=== PATIENT | female | born 1950 | race Caucasian/White ===

== ENCOUNTER → 2016-08-15 | Outpatient (REF) | payer MEDICARE, MEDICAID ==
[~2016-08-15] MED LIST: /AMIO20TA OR; /METO25TAB PO; /WARF25TA PO; /WARF5TA OR; ALDA25TA2 PO; AMIO20TA PO; ASPI81TA83 OR; CALCD50TA PO; CALCTAB22 OR; CALCTAB68 PO; CIPR500T4 OR; CORE3.12 PO; ELIQ5TAB PO; GLUC1000 OR; INSUDET SC; INSUH10VL SC; KETO2AER2 TOP; KETO2CR EXT; KETOPOW TOP; LEVO500T PO; LOPE2TAB PO; LOPERAMIDE PO; LOPR50TA OR; MAGN64TASA PO; METF1000 PO; MULTTAB35 PO; OXYB10TA OR; OXYB5TAB OR; PAXI10TA OR; PAXI30TA11 PO; RISP1TAB OR; RISP1TAB41 PO; SIMV20TA2 OR; SIMV20TA2 PO; SLOWTAB OR; SPIR25TA2 PO; VITMTA PO; [UNRECOGNIZED DRUG - OTHER] TOP
[2016-08-15 18:45] LABS: ALBUMIN 3.2 GM/DL (3.2-5.2); ALBUMIN/GLOBULIN RATIO 0.97 (1.00-1.93); BILIRUBIN,TOTAL 0.3 MG/DL (0.2-1.0); CALCIUM LEVEL 8.1 MG/DL (8.8-10.2); CREATININE FOR GFR 1.36 MG/DL (0.55-1.02); GLOMERULAR FILTRATION RATE 41.2 (>45); TOTAL PROTEIN 6.5 GM/DL (6.4-8.2)
[2016-08-15 18:47] LABS: POTASSIUM SERUM 5.5 MEQ/L (3.5-5.1)
[2016-08-15 18:50] LABS: MEAN CORPUSCULAR HEMOGLOBIN 25.3 pg (27.0-33.0); MEAN CORPUSCULAR HGB CONC 29.2 g/dl (32.0-36.5); MEAN CORPUSCULAR VOLUME 86.4 fl (80.0-96.0); RED CELL DISTRIBUTION WIDTH 14.9 % (11.5-14.5)
== END ==
LOC: M LAB REF 17:02
PROVIDERS: ATTEND Surgery
DX: E11.621 Type 2 diabetes mellitus with foot ulcer (principal); L97.412 Non-pressure chronic ulcer of right heel and midfoot with fat layer exposed; L97.512 Non-pressure chronic ulcer of other part of right foot with fat layer exposed
CPT/HCPCS: 36415; 80053; 83036; 85027; 85652; 86140; 97597; G0463

== ENCOUNTER → 2016-08-25 | Outpatient (CLI) | payer MEDICARE, MEDICAID ==
--- NOTE | 2016-08-29 05:25 | REP ---
Clinical: Right foot ulcer. Findings: Subcutaneous edema and diffuse subcutaneous infiltration is appreciated. Advanced scattered partially calcified atherosclerotic changes to the vasculature noted. No discrete drainable fluid collection/abscess is appreciated. No subcutaneous emphysema identified. The osseous structures demonstrate advanced degenerative changes without acute fracture or focal periosteal reaction. Impression: Diffuse swelling and inflammatory changes. No drainable collection or subcutaneous emphysema identified. Osseous structures demonstrate advanced arthritic changes without fracture or osteomyelitis. Atherosclerotic changes to the vasculature. Signed by Benito Riggins MD 08/29/2016 05:15 A
== END ==
LOC: M RAD 10:15
PROVIDERS: ATTEND Surgery
DX: E11.621 Type 2 diabetes mellitus with foot ulcer (principal); M19.071 Primary osteoarthritis, right ankle and foot

== ENCOUNTER → 2016-09-05 | Outpatient (CLI) | payer MEDICARE, MEDICAID ==
[2016-09-05 10:40] LABS: ALBUMIN/GLOBULIN RATIO 0.91 (1.00-1.93); BILIRUBIN,TOTAL 0.3 MG/DL (0.2-1.0); CALCIUM LEVEL 8.3 MG/DL (8.8-10.2); CREATININE FOR GFR 1.22 MG/DL (0.55-1.02); GLOMERULAR FILTRATION RATE 46.7 (>45); TOTAL PROTEIN 6.3 GM/DL (6.4-8.2)
[2016-09-05 10:43] LABS: POTASSIUM SERUM 5.3 MEQ/L (3.5-5.1)
--- NOTE | 2016-09-05 10:56 | REP ---
PA and lateral chest: Comparisons are the portable chest of 06/13/2015, portable chest of 06/12/2015. And PA and lateral chest of 02/08/2015. Lung del rio are clear. Cardiac size is borderline. This is unchanged. The teri, mediastinum, and bony thorax are unremarkable. There is a dual-chamber pacemaker, unchanged from all prior studies. There are surgical clips in the abdominal right upper quadrant. Impression: Chronic borderline cardiac size. Dual-chamber pacemaker. No acute cardiopulmonary findings. Signed by Ion Pavon MD 09/05/2016 10:47 A
== END ==
LOC: M LAB 09:25
PROVIDERS: ATTEND Physician Assistant
DX: I48.0 Paroxysmal atrial fibrillation (principal); I50.32 Chronic diastolic (congestive) heart failure; Z95.0 Presence of cardiac pacemaker

== ENCOUNTER → 2016-10-02 | Outpatient (REF) | payer MEDICARE | LOC: M SFHCPLAZ 09:35 | PROVIDERS: ATTEND Family Medicine | DX: Z53.8 Procedure and treatment not carried out for other reasons (principal); I48.0 Paroxysmal atrial fibrillation; I50.30 Unspecified diastolic (congestive) heart failure; E11.9 Type 2 diabetes mellitus without complications; E78.00 Pure hypercholesterolemia, unspecified ==

== ENCOUNTER → 2016-10-18 | Day surgery (SDC) | payer MEDICARE, MEDICAID ==
[~2016-10-18] VITALS: Ht 162.6 cm; Wt 70.8 kg
[~2016-10-18] MED LIST changes: +ACETAMINOPHEN 325 MG TAB PO PRN; +ACETYLCHOLINE OPHTH SOLN 1% 2ML (MIOCHOL-E) As Ordered ONE; +AMIO200T37 PO; +ASPI81TA85 PO; +AcetaZOLAMIDE 500 MG ER CAP PO ONE; +BSS with VANC/TOB/EPI for EYE CASES IR ONE; +CYCLOPENTOLATE 2% OPHTH SOLN 2ML BTL As Ordered ONE; +CYCLOPENTOLATE 2% OPHTH SOLN 2ML BTL OD ONE; +D5W/0.2% SODIUM CHLORIDE 250 ML IV ONE; +HEALON DUET (HEALON 10MG/ML 0.55ML & HEALON ENDOCOAT 30MG/ML 0.85ML) As Ordered ONE; +KETOROLAC 0.5% OPHTH SOLN OD ONE; +LIDOCAINE 1% MDV 20ML VIAL As Ordered ONE; +LIDOCAINE 1% SDV 5 ML VIAL As Ordered ONE; +LIDOCAINE 4% INJ 5 ML AMP OU ONE; +LISI2.5T3 PO; +MIDAZOLAM INJ 2 MG/2 ML VIAL (J2250) As Ordered ONE; +MOXIFLOXACIN IN BSS 0.25MG/0.25ML INTRACAMERAL INJ (OR EYE ONLY)(J2280) As Ordered ONE; +OFLOXACIN 0.3 % (OCUFLOX) OPTH SOL 5ML As Ordered ONE; +OFLOXACIN 0.3 % (OCUFLOX) OPTH SOL 5ML OD ONE; +PHENYLEPHRINE 2.5% OPHTH SOL 2ML As Ordered ONE; +PHENYLEPHRINE 2.5% OPHTH SOL 2ML OD ONE; +PHENYLEPHRINE HCL 10 % OPHTH. SOL 5ML As Ordered ONE; +PHENYLEPHRINE HCL 10 % OPHTH. SOL 5ML OD SCH; +POVIDONE-IODINE 5% OPHTH PREP SOL 30ML As Ordered ONE; +PROPARACAINE 0.5% OPHTH SOL 15ML OD PRN; +TRIAMCINOLONE PRES FR 40 MG/ML 1ML(TRIESENCE)(OR EYE ONLY)(J3300 PER 1MG) As Ordered ONE; +TRIMETHOBENZAMIDE 300 MG CAP PO PRN; +TROPICAMIDE 1% OPHTH SOLN 2ML As Ordered ONE; +TROPICAMIDE 1% OPHTH SOLN 2ML OD ONE; +fentaNYL 100 MCG/2 ML INJECTION (J3010) As Ordered ONE
[2016-10-18 10:05] VITALS: BP 170/79
--- NOTE | 2016-10-18 23:26 | RO ---
DATE OF PROCEDURE: 10/18/2016 PREOPERATIVE DIAGNOSES: Cataract right eye. Miosis right eye. POSTOPERATIVE DIAGNOSES: Cataract right eye. Miosis right eye. PROCEDURE: Phacoemulsification with intraocular lens implantation of Hoya, +29 diopter, and placement of the Malyugin ring 7 mm for dilating the pupil. SURGEON: Nabil Burgess MD PAINTER AIRCRAFT: None. ANESTHESIA: COMPLICATIONS: None. DESCRIPTION OF PROCEDURE: Patient was brought to the operating room, laid in supine position. The right eye was prepped and draped in a sterile fashion for ophthalmic surgery, and a lid speculum was placed. Sideport incision was made, and EndoCoat was injected into the anterior chamber. A temporal clear corneal incision was then made, and capsulorrhexis was done. This was followed by hydrodissection. Phacoemulsification was carried out in a [id number] method within the capsular bag, followed by aspiration of the cortical material. Prior to capsulorrhexis, Malyugin ring was placed to dilate the pupil. Once the intraocular lens was placed, after aspiration of the cortical material, excess viscoelastic was aspirated. Prior to that, the Malyugin ring was removed from the eye with the help of the introducer. Wound was hydrated. Intracameral moxifloxacin was given, and sub-Tenon Kenalog was given at the end of the case. Lid speculum removed. Patient returned to recovery room in stable condition.
== END | disposition home or self-care (01) ==
LOC: M SDC 07:14
PROVIDERS: ATTEND Ophthalmology
DX: H25.13 Age-related nuclear cataract, bilateral (principal); H57.03 Miosis; I48.0 Paroxysmal atrial fibrillation; I50.9 Heart failure, unspecified; I11.0 Hypertensive heart disease with heart failure; E78.5 Hyperlipidemia, unspecified; I08.0 Rheumatic disorders of both mitral and aortic valves; Z95.0 Presence of cardiac pacemaker; G80.9 Cerebral palsy, unspecified; M85.88 Other specified disorders of bone density and structure, other site; F42.9 Obsessive-compulsive disorder, unspecified; E10.40 Type 1 diabetes mellitus with diabetic neuropathy, unspecified; F70 Mild intellectual disabilities; Z79.899 Other long term (current) drug therapy; Z79.82 Long term (current) use of aspirin; Z79.01 Long term (current) use of anticoagulants; Z79.84 Long term (current) use of oral hypoglycemic drugs; Z88.2 Allergy status to sulfonamides
CPT/HCPCS: 66982; J2250; J2280; J3010; J3300; V2632

== ENCOUNTER → 2016-10-25 | Day surgery (SDC) | payer MEDICARE, MEDICAID ==
[~2016-10-25] VITALS: Ht 162.6 cm; Wt 71.0 kg
[~2016-10-25] MED LIST changes: +ACETAMINOPHEN TAB 650MG DOSE (2X325MG) PO PRN; -ACETYLCHOLINE OPHTH SOLN 1% 2ML (MIOCHOL-E) As Ordered ONE; -CYCLOPENTOLATE 2% OPHTH SOLN 2ML BTL As Ordered ONE; -CYCLOPENTOLATE 2% OPHTH SOLN 2ML BTL OD ONE; +CYCLOPENTOLATE 2% OPHTH SOLN 2ML BTL XX ONE; -D5W/0.2% SODIUM CHLORIDE 250 ML IV ONE; +HumaLOG INSULIN (NovoLOG) PER UNIT As Ordered ONE; +HumaLOG INSULIN (NovoLOG) PER UNIT SC ONE; -KETOROLAC 0.5% OPHTH SOLN OD ONE; +KETOROLAC 0.5% OPHTH SOLN OS ONE; -LIDOCAINE 1% MDV 20ML VIAL As Ordered ONE; +LR 1,000 ML IV SCH; +LR 500 ML IV ONE; -OFLOXACIN 0.3 % (OCUFLOX) OPTH SOL 5ML As Ordered ONE; -OFLOXACIN 0.3 % (OCUFLOX) OPTH SOL 5ML OD ONE; +OFLOXACIN 0.3 % (OCUFLOX) OPTH SOL 5ML XX ONE; -PHENYLEPHRINE 2.5% OPHTH SOL 2ML As Ordered ONE; -PHENYLEPHRINE 2.5% OPHTH SOL 2ML OD ONE; +PHENYLEPHRINE 2.5% OPHTH SOL 2ML XX ONE; -PHENYLEPHRINE HCL 10 % OPHTH. SOL 5ML OD SCH; +PHENYLEPHRINE HCL 10 % OPHTH. SOL 5ML OS ONE; -PROPARACAINE 0.5% OPHTH SOL 15ML OD PRN; +PROPARACAINE 0.5% OPHTH SOL 15ML OS PRN; -TROPICAMIDE 1% OPHTH SOLN 2ML As Ordered ONE; -TROPICAMIDE 1% OPHTH SOLN 2ML OD ONE; +TROPICAMIDE 1% OPHTH SOLN 2ML XX ONE
[2016-10-25 14:10] VITALS: BP 143/84
--- NOTE | 2016-10-25 15:57 | RO ---
DATE OF PROCEDURE: 10/25/2016 PREPROCEDURE DIAGNOSIS: Cataract left eye and myosis left eye. POSTPROCEDURE DIAGNOSIS: Cataract left eye and myosis left eye. PROCEDURE: Phacoemulsification with intraocular lens implantation, Hoya, power 29.5 and placement of the Malyugin ring, 7 mm. SURGEON: Nabil Burgess MD THIRD RAIL INSTALLER: None. ANESTHESIA: Local IV standby. COMPLICATIONS: None. DESCRIPTION OF PROCEDURE: The patient was brought to the operating room and laid in supine position. The left eye was prepped and draped in a sterile fashion for opthalmic surgery and a lid speculum was placed. Following this, a sideport incision was made EndoCoat was injected into the anterior chamber. Temporal clear corneal incision was made with a 2.5 mm Keratome followed by insertion of the 7 mm Malyugin ring to dilate the pupil which was done so without any problems. Capsulorrhexis was then done followed by hydrodissection and rotation of the nucleus within the capsular bag. Phacoemulsification was then carried out in a divide and conquer method within the capsular bag followed by aspiration of the cortical material. Healon was then placed in the capsular bag and intraocular lens inserted. Excess viscoelastic was then removed. The wound was hydrated. Intracameral moxifloxacin and sub-Tenon Kenalog was then given. Lid speculum removed and patient returned to the recovery room in stable condition.
== END | disposition home or self-care (01) ==
LOC: M SDC 11:29
PROVIDERS: ATTEND Ophthalmology
DX: H26.9 Unspecified cataract (principal); H57.03 Miosis; I48.0 Paroxysmal atrial fibrillation; I50.9 Heart failure, unspecified; I11.0 Hypertensive heart disease with heart failure; E78.5 Hyperlipidemia, unspecified; I08.0 Rheumatic disorders of both mitral and aortic valves; I49.5 Sick sinus syndrome; Z95.0 Presence of cardiac pacemaker; E10.40 Type 1 diabetes mellitus with diabetic neuropathy, unspecified; F41.9 Anxiety disorder, unspecified; F42.9 Obsessive-compulsive disorder, unspecified; M85.88 Other specified disorders of bone density and structure, other site; F70 Mild intellectual disabilities; G80.9 Cerebral palsy, unspecified; Z86.19 Personal history of other infectious and parasitic diseases; Z79.899 Other long term (current) drug therapy; Z79.82 Long term (current) use of aspirin; Z79.01 Long term (current) use of anticoagulants; Z79.84 Long term (current) use of oral hypoglycemic drugs; Z88.2 Allergy status to sulfonamides
CPT/HCPCS: 66982; J2250; J2280; J3010; J3300; V2632

== ENCOUNTER → 2016-10-26 | Outpatient (CLI) | payer MEDICARE, MEDICAID ==
[~2016-10-26] MED LIST changes: -ACETAMINOPHEN 325 MG TAB PO PRN; -ACETAMINOPHEN TAB 650MG DOSE (2X325MG) PO PRN; -AcetaZOLAMIDE 500 MG ER CAP PO ONE; -BSS with VANC/TOB/EPI for EYE CASES IR ONE; -CYCLOPENTOLATE 2% OPHTH SOLN 2ML BTL XX ONE; -HEALON DUET (HEALON 10MG/ML 0.55ML & HEALON ENDOCOAT 30MG/ML 0.85ML) As Ordered ONE; -HumaLOG INSULIN (NovoLOG) PER UNIT As Ordered ONE; -HumaLOG INSULIN (NovoLOG) PER UNIT SC ONE; -KETOROLAC 0.5% OPHTH SOLN OS ONE; -LIDOCAINE 1% SDV 5 ML VIAL As Ordered ONE; -LIDOCAINE 4% INJ 5 ML AMP OU ONE; -LR 1,000 ML IV SCH; -LR 500 ML IV ONE; -MIDAZOLAM INJ 2 MG/2 ML VIAL (J2250) As Ordered ONE; -MOXIFLOXACIN IN BSS 0.25MG/0.25ML INTRACAMERAL INJ (OR EYE ONLY)(J2280) As Ordered ONE; -OFLOXACIN 0.3 % (OCUFLOX) OPTH SOL 5ML XX ONE; -PHENYLEPHRINE 2.5% OPHTH SOL 2ML XX ONE; -PHENYLEPHRINE HCL 10 % OPHTH. SOL 5ML As Ordered ONE; -PHENYLEPHRINE HCL 10 % OPHTH. SOL 5ML OS ONE; -POVIDONE-IODINE 5% OPHTH PREP SOL 30ML As Ordered ONE; -PROPARACAINE 0.5% OPHTH SOL 15ML OS PRN; -TRIAMCINOLONE PRES FR 40 MG/ML 1ML(TRIESENCE)(OR EYE ONLY)(J3300 PER 1MG) As Ordered ONE; -TRIMETHOBENZAMIDE 300 MG CAP PO PRN; -TROPICAMIDE 1% OPHTH SOLN 2ML XX ONE; -fentaNYL 100 MCG/2 ML INJECTION (J3010) As Ordered ONE
[2016-10-26 13:18] LABS: BASO % 0.3 % (0.0-1.0); EOS % 0.4 % (0.0-3.0); LARGE UNSTAINED CELL # 0.1 K/mm3 (0.0-0.4); LARGE UNSTAINED CELL % 2.1 % (0.0-4.0); LYMPH # 0.6 K/mm3 (1.5-4.5); LYMPH % 10.9 % (24.0-44.0); MEAN CORPUSCULAR HEMOGLOBIN 25.5 pg (27.0-33.0); MEAN CORPUSCULAR HGB CONC 29.6 g/dl (32.0-36.5); MONO # 0.4 K/mm3 (0.0-0.8); MONO % 7.1 % (0.0-5.0); NEUTROPHILS # 4.5 K/mm3 (1.8-7.7); NEUTROPHILS % 79.3 % (36.0-66.0); PLATELET COUNT, AUTOMATED 338 k/mm3 (150-450); RED CELL DISTRIBUTION WIDTH 15.8 % (11.5-14.5); WHITE BLOOD COUNT 5.6 K/mm3 (4.0-10.0)
[2016-10-26 13:36] LABS: ALBUMIN 3.4 GM/DL (3.2-5.2); BILIRUBIN,TOTAL 0.4 MG/DL (0.2-1.0); CALCIUM LEVEL 9.1 MG/DL (8.8-10.2); CREATININE FOR GFR 1.24 MG/DL (0.55-1.02); GLOMERULAR FILTRATION RATE 45.8 (>45); MAGNESIUM LEVEL 2.2 MG/DL (1.8-2.4); TOTAL PROTEIN 6.8 GM/DL (6.4-8.2)
== END ==
LOC: M WUC 08:33
PROVIDERS: ATTEND Family Medicine
DX: I48.0 Paroxysmal atrial fibrillation (principal); I50.30 Unspecified diastolic (congestive) heart failure; E11.9 Type 2 diabetes mellitus without complications; E78.00 Pure hypercholesterolemia, unspecified

== ENCOUNTER → 2016-10-27 | Outpatient (REF) | payer MEDICARE, MEDICAID ==
[~2016-10-27] MED LIST changes: +ACET-654 PO; +BACT800T5 PO; +COLA100C3 PO; +INSUHUMDS SC; +NORCOTAB PO; +OXYB10TA PO; +RISP2TAB3 PO; +SANT250O8 TOP; +SODI1TA PO; +TERB250T57 PO; +VITACHTA PO
== END ==
LOC: M SMT 13:03
PROVIDERS: ATTEND Nurse Practitioner Women's Health
DX: R35.0 Frequency of micturition (principal)
CPT/HCPCS: 81001; 87088; 87186; G0463

== ENCOUNTER → 2016-10-30 | Outpatient (CLI) | payer MEDICARE, MEDICAID ==
[~2016-10-30] MED LIST changes: -COLA100C3 PO; -INSUHUMDS SC; -NORCOTAB PO; -SODI1TA PO
--- NOTE | 2016-10-30 10:56 | REP ---
Urinary tract sonography: History: Urinary frequency. History of kidney stones. Incontinence. Comparison sonography June 11, 2015. Comparison CT study June 10, 2015. Findings: Scanning at the level of the urinary bladder shows smooth bladder torrez. Pre-void bladder volume is calculated at only 64 mL. Postvoid bladder residual is 28 mL. Emptying ureteral jets are confirmed bilaterally on color Doppler interrogation of the bladder lumen. No bladder mass lesion is seen. Renal cortical echogenicity pattern is normal. Renal cortical thinning is seen bilaterally. No hydronephrosis is noted on either side. There are two hyperechoic areas in the right kidney. These measure 0.9 and 0.5 cm in greatest diameter. These may be infrarenal calculi. They appear to be associated with acoustic shadowing. No mass, cyst or other abnormality. Impression: Mild diffuse cortical atrophy bilaterally. No hydronephrosis seen. Two intrarenal calculi suspected on the right. Small bladder capacity and postvoid bladder residual seen. Signed by Dada Tarango MD 10/30/2016 12:58 P
== END ==
LOC: M SMT 09:01
PROVIDERS: ATTEND Nurse Practitioner Women's Health
DX: R35.0 Frequency of micturition (principal); R32 Unspecified urinary incontinence; Z87.442 Personal history of urinary calculi; R39.198 Other difficulties with micturition

== ENCOUNTER 2016-11-06 20:06 | Inpatient (IN) | payer MEDICARE, MEDICAID ==
[~2016-11-06] VITALS: Ht 162.6 cm; Wt 73.7 kg
[~2016-11-06 20:06] MED LIST changes: -ACET-654 PO; -BACT800T5 PO; -OXYB10TA PO; -RISP2TAB3 PO; -SANT250O8 TOP; -TERB250T57 PO; -VITACHTA PO
[2016-11-06] MEDS ORDERED: SANT250O8 TOP (20:29)
[2016-11-06] MEDS ORDERED: TERB250T57 PO (20:29)
[2016-11-06 21:40] LABS: BASO % 0.4 % (0.0-1.0); EOS % 0.3 % (0.0-3.0); LARGE UNSTAINED CELL # 0.1 K/mm3 (0.0-0.4); LARGE UNSTAINED CELL % 1.1 % (0.0-4.0); LYMPH # 0.8 K/mm3 (1.5-4.5); LYMPH % 9.8 % (24.0-44.0); MEAN CORPUSCULAR HEMOGLOBIN 25.6 pg (27.0-33.0); MEAN CORPUSCULAR HGB CONC 30.7 g/dl (32.0-36.5); MEAN CORPUSCULAR VOLUME 83.3 fl (80.0-96.0); MONO # 0.4 K/mm3 (0.0-0.8); MONO % 5.9 % (0.0-5.0); NEUTROPHILS % 82.5 % (36.0-66.0); PLATELET COUNT, AUTOMATED 318 k/mm3 (150-450); RED CELL DISTRIBUTION WIDTH 16.1 % (11.5-14.5); WHITE BLOOD COUNT 7.2 K/mm3 (4.0-10.0)
--- NOTE | 2016-11-06 21:40 | REPUSA ---
CT of the cervical spine Clinical history: Trauma. Technique: Multiple axial CT images were obtained through the cervical spine without administration o f contrast. Coronal and sagittal 3-D reconstructed images were also obtained. Comparison: None. Findings: The cervical vertebral bodies are in satisfactory positioning and alignment. No fractures or dislocat ions are demonstrated. The odontoid process is intact. Intervertebral disc spaces are well-maintained . There is no evidence of facet subluxation. The neural foramen appear grossly patent. The cervical c ranial junction is intact. The cervical spinal canal demonstrates normal caliber and contour without evidence of spinal stenosis. The surrounding soft tissues are within normal limits. Impression: Unremarkable CT examination of the cervical spine.
--- NOTE | 2016-11-06 21:40 | REPUSA ---
CT of the head Clinical history: Trauma. Protocol: Multiple axial CT images obtained with 5 mm slice thickness were obtained through the head without administration of contrast. Comparison: None. Findings: The ventricles and sulci are symmetric but prominent in size bilaterally. There are periven tricular areas of low attenuation throughout the deep white matter. There is no evidence of acute hem orrhage or infarct. There is no midline shift, mass effect, or extra-axial fluid collection. The osse ous structures are unremarkable. There is a small air fluid level in the left maxillary sinus. The ot her visualized paranasal sinuses and mastoid air cells are clear. Impression: 1. No acute hemorrhage or infarct. Findings are consistent with age-related atrophy and chronic small vessel ischemic disease. 2. Left maxillary sinusitis.
[2016-11-06 21:50] LABS: INR 1.37
[2016-11-06] MEDS ORDERED: NS 500 ML IV ONE (22:00)
[2016-11-06 22:14] LABS: ALBUMIN 3.2 GM/DL (3.2-5.2); ALBUMIN/GLOBULIN RATIO 1.1 (1.00-1.93); BILIRUBIN,DIRECT 0.1 MG/DL (0.0-0.2); BILIRUBIN,TOTAL 0.3 MG/DL (0.2-1.0); CALCIUM LEVEL 8.4 MG/DL (8.8-10.2); GLOMERULAR FILTRATION RATE 26.4 (>45); TOTAL PROTEIN 6.1 GM/DL (6.4-8.2)
[2016-11-06 22:20] LABS: POTASSIUM SERUM 6.9 MEQ/L (3.5-5.1)
--- NOTE | 2016-11-06 23:40 | REPUSA ---
CT of the chest without contrast Clinical statement: trauma. Technique: Multiple axial CT images were obtained with 5 mm cuts through the chest without administra tion of contrast. Comparison: None. Findings: There is no thoracic lymphadenopathy. The visualized portions of the thyroid gland is unrem arkable. There are no pericardial or pleural effusions There is minimal atelectasis in the lower lung s bilaterally. Limited imaging of the upper abdomen does not demonstrate any acute abnormalities. The re are no suspicious osseous lesions. Impression: 1. No acute traumatic injury. 2. Minimal atelectasis in the lung bases bilaterally.
[2016-11-06] MEDS ORDERED: HumuLIN R (REGULAR) INSULIN (NovoLIN R) **100U/ML** PER UNIT SC STA (23:52)
[2016-11-06] MEDS ORDERED: DEXTROSE 50% 50 ML SYRINGE IV STA (23:52)
[2016-11-07] VITALS (47 sets, daily range): BP systolic 67–146; BP diastolic 37–105
[2016-11-07] MEDS ORDERED: ALBUTEROL SULFATE 2.5 MG/0.5 ML INH NEB SOLN NEB ONE
[2016-11-07] MEDS ORDERED: SOD POLYSTYRENE SULFONATE SUSP 15 GM/60 ML UD PO ONE
--- NOTE | 2016-11-07 | REPUSA ---
CT of the abdomen and pelvis without contrast Clinical statement: trauma. Technique: Multiple axial CT images were obtained from the base of the lungs to the floor of the pelv is utilizing 5 mm axial slices without administration of contrast. Coronal and sagittal reconstructio ns were also obtained. Comparison: None. Findings: Chest: The visualized lung bases demonstrate bilateral lower lobe infiltrates. Abdomen: There is a large mount of inflammatory changes seen in the lateral flank region in the subcu taneous tissues. A focal mixed attenuation mass is seen at this site measuring 5.2 x 6.9 cm. The kidn eys are normal in size bilaterally. There is no evidence of hydronephrosis or nephrolithiasis. The li nba, spleen, pancreas, and adrenal glands are unremarkable. The aorta demonstrates normal caliber and contour. There is no abdominal lymphadenopathy or ascites. Pelvis: The bowel is unremarkable, with no obstructive or inflammatory changes. There is mild sigmoid diverticulosis. The urinary bladder is catheterized, but within normal limits. There is no pelvic ly mphadenopathy or ascites. The other pelvic structures appear unremarkable. Bones: There are no suspicious osseous abnormalities seen. There is mild degenerative disc disease at L3/L4. Impression: 1. Large mix attenuation mass in the subcutaneous tissues in the left flank region, with significant surrounding inflammatory changes. The findings are consistent with a soft tissue contusion with possi ble hematoma. Follow-up is recommended as clinically indicated. 2. No intraperitoneal traumatic injury. No evidence of ascites. 3. Minimal atelectasis/infiltrate at the lung bases bilaterally. 4. Mild sigmoid diverticulosis without evidence of diverticulitis.
[2016-11-07] MEDS ORDERED: ACET-654 PO (00:40)
[2016-11-07] MEDS ORDERED: BACT800T5 PO (00:40)
[2016-11-07] MEDS ORDERED: RISP2TAB3 PO (00:40)
[2016-11-07] MEDS ORDERED: VITACHTA PO (00:40)
[2016-11-07] MEDS ORDERED: OXYB10TA PO (00:40)
[2016-11-07] MEDS ORDERED: NS 1,000 ML IV SCH (01:00)
[2016-11-07 01:59] LABS: CREATININE FOR GFR 1.93 MG/DL (0.55-1.02); GLOMERULAR FILTRATION RATE 27.5 (>45)
[2016-11-07 02:16] LABS: POTASSIUM SERUM 6.9 MEQ/L (3.5-5.1)
[2016-11-07 02:17] LABS: CALCIUM LEVEL 6.9 MG/DL (8.8-10.2)
[2016-11-07] MEDS: NS 1,000 ML IV SCH ×3 (03:06→21:59)
[2016-11-07] MEDS ORDERED: MORPHINE 2 MG/ML 1ML SYRINGE IV PRN (03:15)
[2016-11-07] MEDS ORDERED: ONDANSETRON 4MG/2ML VIAL (J2405) IV PRN (03:15)
[2016-11-07 03:31] LABS: MEAN CORPUSCULAR HEMOGLOBIN 25.8 pg (27.0-33.0); MEAN CORPUSCULAR HGB CONC 29.7 g/dl (32.0-36.5); RED CELL DISTRIBUTION WIDTH 16.2 % (11.5-14.5); WHITE BLOOD COUNT 14.3 K/mm3 (4.0-10.0)
[2016-11-07] MEDS ORDERED: CALCIUM GLUCONATE 1,000 MG in D5W MINI-BAG PLUS 100 ML IV ONE ×2 (04:45→05:45)
--- NOTE | 2016-11-07 05:35 | HPE ---
DATE OF ADMISSION: 11/07/2016 ADMISSION DIAGNOSES: 1. Large left flank and hip hematoma. 2. Left clavicle fracture. 3. Atrial fibrillation on anticoagulation. 4. Status post pacemaker placement. 5. Hyperkalemia. 6. Acute kidney injury. 7. Diabetes mellitus. 8. Moderate mental retardation. HISTORY OF PRESENT ILLNESS: The patient is a 66-year-old woman who presented to the emergency department with a complaint of a fall down a flight of stairs. The patient lives in a [facility]) residential home. She was apparently going downstairs when she fell and fell forward going down the stairs, striking her left hip and shoulder as well as her head. She apparently did not have a loss of consciousness. She was brought to the emergency department for evaluation. In the emergency department, she had some hypotension though her pulse did not become tachycardiac. She received several boluses of fluid. She underwent CT scanning from her head and neck down through the chest, abdomen and pelvis. She had an additional chest x-ray and an x-ray of her left shoulder. She was found to have a significant hematoma of the left lower flank and hip area. She had a fracture identified at the distal aspect of the left clavicle. Her labs revealed hyperkalemia, as well as anemia, and some acute kidney injury. She is now being admitted for management of her multiple medical and surgical issues. ALLERGIES: The patient has no reported drug allergies. MEDICATIONS: The patient's home medications are multiple and include: - amiodarone 200 mg by mouth daily - Eliquis 5 mg by mouth twice daily - aspirin 81 mg by mouth daily - calcium and vitamin D one tablet twice daily - carvedilol 3.125 mg by mouth twice daily - insulin per sliding scale - insulin detemir 6 units subcutaneous twice daily - lisinopril 2.5 mg by mouth daily - loperamide 2 mg by mouth daily - magnesium chloride 128 mg by mouth twice daily - metformin 1 gram by mouth twice daily - multivitamin daily - oxybutynin 10 mg by mouth at bedtime - paroxetine hydrochloride 60 mg by mouth at bedtime - risperidone 1 mg by mouth daily - risperidone 2 mg by mouth at bedtime - simvastatin 20 mg by mouth at bedtime - spironolactone 25 mg by mouth daily - Bactrim double-strength one tablet by mouth twice daily started on October 31. PAST SURGICAL HISTORY: Reportedly includes a cholecystectomy. She has apparently had a hysterectomy. She has had a pacemaker placed back in May of 2011. She has apparently had her appendix out. She has had surgery on her toes. She has had a tonsillectomy. MEDICAL HISTORY: Significant for atrial fibrillation and sick sinus syndrome for which she received a pacemaker. She has some mitral valvular disease. She has a history of mild mental retardation. She has a history of diabetes mellitus. She has a history of hypertension and hyperlipidemia. She has a history of chronic back pain. FAMILY HISTORY: Noncontributory to this particular event. REVIEW OF SYSTEMS: Not obtainable in detail at this time. PHYSICAL EXAMINATION: The patient in identified lying on the stretcher in the emergency department. Her most recent vital signs show a blood pressure of approximately 97/54. Her pulse is approximately 60. She is alert and responsive. She is complaining of feeling cold. She appears pale. Skin is cool and dry. Sclerae are anicteric. Mucous membranes are moist to tacky. The neck is without evident injury. There is no bruising or swelling. She does have some swelling in the left shoulder superiorly. There is some tenderness in this area. The right shoulder is without apparent injury. She has a pacemaker palpable in the infraclavicular fossa on the left. Cardiac exam reveals a regular rhythm at about 60. Lungs reveal some upper airway sounds, particularly on the right but she has bilateral lung aeration. The abdomen is mildly obese. She has bowel sounds present. The abdomen is soft and nontender without appreciable mass. She has some swelling and bruising over the left hip and left lower flank area. She has a bandage on her left ankle area. The lower extremities are pale. The upper extremities she is moving spontaneously and she has palpable radial pulses. IMAGING: Her CT imaging included images of the head and neck which showed no acute findings. Her CT of the chest revealed some minimal atelectasis in the lung bases bilaterally. CT of the abdomen and pelvis revealed a large hematoma in the subcutaneous tissues of the left flank and hip area. There is no evidence of intraperitoneal injury. Chest x-ray and left shoulder x-ray revealed a left distal clavicle fracture. LABORATORY DATA: Her laboratory studies included a CBC showing a white count of 7.2 with a hemoglobin of 9, hematocrit of 28.5 and platelet count of 318,000. Differential count showed 82% neutrophils, 10% lymphocytes and 6% monocytes. Chemistries showed a sodium of 126, potassium 6.9, chloride 96, CO2 of 20, BUN of 42, creatinine 2.0 and a glucose of 196. Her AST and ALT were elevated to 254 and 419 respectively. Total protein is 6.1 with an albumin of 3.2. Lipase is normal. Total CK is 91 with a CK-MB of 2.1 and her troponin is 0.03. Coagulation showed a PT of 17.0 with an INR of 1.37 and a PTT of 27.3. Urinalysis showed 59 white cells and 71 red cells per high-power field. IMPRESSION: 1. Large left flank hematoma status post fall. 2. Left clavicle fracture. 3. Hyperkalemia. 4. Acute kidney injury. 5. Hyponatremia 6. Atrial fibrillation and sick sinus syndrome status post a pacemaker placement. 7. Diabetes mellitus. 8. Hypertension. 9. Hyperlipidemia. 10. Mild to moderate mental retardation. PLAN: The patient is being admitted as it is clear that she has enough ongoing issues to warrant admission. Because she fell down the stairs and had some trauma, I am admitting her under my name to surgery. The hospitalist was consulted by the emergency room (ER) physician as the patient clearly has some ongoing medical issues as well; most notably her significant hyperkalemia combined with what appears to be some acute kidney injury versus dehydration. She has known heart disease including hypertension and reports of some heart failure. I have requested a bed in the progressive care unit for closer monitoring. I have typed and crossmatched some blood as starting from a hematocrit of 28, I anticipate that with her significant hematoma that she will require transfusion. She will receive analgesics as necessary. HIMANSHU
[2016-11-07] MEDS ORDERED: VANCOMYCIN HCL 1,000 MG, VIAL MATE ADAPTER 1 EACH in D5W 250 ML IV ONE (06:00)
[2016-11-07] MEDS ORDERED: PIPERACILLIN/TAZOBACTAM SOD 3.375 GM in D5W MINI-BAG PLUS 50 ML IV SCH (06:00)
--- NOTE | 2016-11-07 06:00 | ECGEPIP ---
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
--- NOTE | 2016-11-07 06:45 | CR.PDOC ---
[facility] Consultation Consultation DATE OF CONSULTATION: Nov 06, 2016 at 23:00 PRIMARY CARE PHYSICIAN: REFERRING PROVIDER: ATTENDING PHYSICIAN: REASON FOR CONSULTATION/CHIEF COMPLAINT: . HISTORY OF PRESENT ILLNESS: . ALLERGIES: Please see below. HOME MEDICATIONS: Please see below. PAST MEDICAL HISTORY: 1. . 2. . PAST SURGICAL HISTORY: 1. 2. FAMILY HISTORY: Father: Mother: Siblings: Children: Hereditary Diseases: Unexpected deaths due to medical reasons: SOCIAL HISTORY: Marital status and/or living arrangements: Children: Employment: Tobacco use: ETOH: Illicit drug use: IV drug use: Other relevant social factors: REVIEW OF SYSTEMS: CONSTITUTIONAL: . HEENT: . CARDIOVASCULAR: . RESPIRATORY: . GENITOURINARY: . MUSCULOSKELETAL: . GASTROINTESTINAL: . SKIN: . NEUROLOGICAL: . PSYCHIATRIC: . ENDOCRINE: . HEMATOLOGIC/LYMPHATIC: . ALLERGIC/IMMUNOLOGIC: . PHYSICAL EXAMINATION: VITAL SIGNS: Please see below. GENERAL APPEARANCE: . HEENT: . RESPIRATORY: . CARDIOVASCULAR: . ABDOMEN: . EXTREMITIES: . NEUROLOGICAL: . PSYCHIATRIC: . LABORATORY DATA: Please see below. ASSESSMENT/PLAN: 1. . 2. . Vital Signs/I&O Vital Signs Date Time Temp Pulse Resp B/P (MAP) Pulse Ox O2 Delivery O2 Flow Rate FiO2 11/07/16 06:10 101/57 (72) 11/07/16 06:02 60 99 11/06/16 20:19 98.0 18 Room Air I&O- Last 24 Hours up to 6 AM 11/07/16 06:00 Intake Total 3000 ml Balance 3000 ml Laboratory Data Labs 24H Laboratory Tests 2 11/06/16 21:29: White Blood Count 7.2, Red Blood Count 3.42L, Hemoglobin 8.8L, Hematocrit 28.5L , Mean Corpuscular Volume 83.3, Mean Corpuscular Hemoglobin 25.6L, Mean Corpuscular Hemoglobin Concent 30.7L, Red Cell Distribution Width 16.1H, Platelet Count 318, Neutrophils (%) (Auto) 82.5H, Lymphocytes (%) (Auto) 9.8L, Monocytes (%) (Auto) 5.9H, Eosinophils (%) (Auto) 0.3, Basophils (%) (Auto) 0.4 , Neutrophils # (Auto) 6.0, Lymphocytes # (Auto) 0.8L, Monocytes # (Auto) 0.4, Eosinophils # (Auto) 0.0, Basophils # (Auto) 0.0, Large Unclassified Cells % 1.1 , Large Unclassified Cells # 0.1, Prothrombin Time 17.0H, Prothromb Time International Ratio 1.37, Activated Partial Thromboplast Time 27.3, Anion Gap 10 , Glomerular Filtration Rate 26.4L, Calcium Level 8.4L, Aspartate Amino Transf ( AST/SGOT) 254H, Alanine Aminotransferase (ALT/SGPT) 419H, Alkaline Phosphatase 55, Total Bilirubin 0.3, Direct Bilirubin 0.1, Total Creatine Kinase 91, Creatine Kinase MB 2.1, Creatine Kinase MB Relative Index 2.30, Troponin I 0.03 , Total Protein 6.1L, Albumin 3.2, Albumin/Globulin Ratio 1.10, Lipase 86 11/06/16 22:57: Urine Appearance HAZY, Urine Color YELLOW, Urine pH 5.0, Urine Specific Hortense 1.020, Urine Protein 1+H, Urine Glucose (UA) NEGATIVE, Urine Ketones TRACEH, Urine Urobilinogen 0.2, Urine Bilirubin NEGATIVE, Urine Leukocyte Esterase 2+H, Urine Blood 3+H, Urine Nitrite NEGATIVE, Urine WBC (Auto) 59H, Urine RBC (Auto) 71H, Urine Hyaline Casts (Auto) 0, Urine Bacteria (Auto) NEGATIVE, Urine Squamous Epithelial Cells 4, Urine Mucus (Auto) SMALL, Urine Sperm (Auto) 11/07/16 01:27: Anion Gap 7L, Glomerular Filtration Rate 27.5L, Calcium Level 6.9#L, Blood Urea Nitrogen 43H, Creatinine 1.93H, Sodium Level 131L, Potassium Level 6.9*H, Chloride Level 105, Carbon Dioxide Level 19L CBC/BMP Laboratory Tests 11/06/16 21:29 Red Blood Count 3.42 L, Mean Corpuscular Volume 83.3, Mean Corpuscular Hemoglobin 25.6 L, Mean Corpuscular Hemoglobin Concent 30.7 L, Red Cell Distribution Width 16.1 H, Neutrophils (%) (Auto) 82.5 H, Lymphocytes (%) (Auto ) 9.8 L, Monocytes (%) (Auto) 5.9 H, Eosinophils (%) (Auto) 0.3, Basophils (%) ( Auto) 0.4, Neutrophils # (Auto) 6.0, Lymphocytes # (Auto) 0.8 L, Monocytes # ( Auto) 0.4, Eosinophils # (Auto) 0.0, Basophils # (Auto) 0.0 11/07/16 01:27 Red Blood Count 2.24 L, Mean Corpuscular Volume 87.0, Mean Corpuscular Hemoglobin 25.8 L, Mean Corpuscular Hemoglobin Concent 29.7 L, Red Cell Distribution Width 16.2 H, Calcium Level 6.9 #L Allergies Coded Allergies: No Known Drug Allergy (Verified Allergy, Unknown, 10/25/16) Home Medications Scheduled (Risperidone) 2 Mg Tab, 2 MG PO QHS, (Reported) Amiodarone HCl (Amiodarone Hydrochloride) 200 Mg Tab, 200 MG PO DAILY, (Reported ) Apixaban Base (Eliquis) 5 Mg Tab, 5 MG PO BID, (Reported) Aspirin (Aspir-81) 81 Mg Tab, 81 MG PO DAILY, (Reported) Calcium/Vitamin D (Calcium 600 + D 600-400 mg-Unit) 1 Tab Tab, 1 TAB PO BID, ( Reported) Carvedilol (Coreg) 3.125 Mg Tab, 3.125 MG PO BID, (Reported) Collagenase (Santyl) 250 Unit/Gm Oin, 1 DOSE TOP Q2D, (Reported) APPLIED TO RIGHT BIG TOE, RIGHT FOUR TOE, RIGHT HEEL, AND LEFT MEDIAL ANKLE EVERY OTHER DAY AT [facility] Insulin Aspart (Novolog) 100 U/Ml Inj, 1 DOSE SC AC, (Reported) PER SLIDING SCALE Insulin Detemir (Levemir) 1 Units/0.01 Ml Susp, 6 UNITS SC BID, (Reported) Lisinopril (Lisinopril) 2.5 Mg Tab, 2.5 MG PO DAILY, (Reported) Loperamide HCl (Loperamide HCl) 2 Mg Tab, 2 MG PO DAILY, (Reported) Magnesium Chloride (Mag64) 64 Mg Tabcr, 128 MG PO BID, (Reported) Metformin Hydrochloride (Metformin HCl) 1,000 Mg Tab, 1,000 MG PO BID, (Reported ) Multivitamins Chewable *[facility] STOCKED* (Animal Shapes with C & FA *[facility] STOCKED*) 1 Tab Chew, 1 TAB PO DAILY, (Reported) Oxybutynin Chloride (Oxybutynin Chloride ER) 10 Mg Tab, 10 MG PO QHS, (Reported) Paroxetine Hydrochloride (Paxil) 30 Mg Tab, 60 MG PO QHS, (Reported) Risperidone (Risperdal) 1 Mg Tab, 1 MG PO DAILY, (Reported) Simvastatin (Simvastatin) 20 Mg Tab, 20 MG PO QHS, (Reported) Spironolactone (Spironolactone) 25 Mg Tab, 25 MG PO DAILY, (Reported) Trimethoprim/Sulfamethoxazole (Bactrim Ds 800-160 mg) 1 Tab Tab, 1 TAB PO BID, ( Reported) 10 DAYS SUPPLY: STARTED ON 10/31 AT [facility] Scheduled PRN Acetaminophen (Acetaminophen) 325 Mg Tab, 650 MG PO Q4H PRN for PAIN / FEVER, ( Reported) Assessment/Plan 66-year-old female, history of cerebral palsy and presented with them fall from the STS and admitted for septic shock and contusion Problems (1) Septic shock Status: Acute Problem Text: WBC in 14.3 and lactic acid elevated and started IV Zosyn and vancomycin pneumonia. 10. Septic shock. Blood pressure was 75/42, which responded to IV normal saline bolus Contusion to abdomen while likely due to hematoma. Continue monitoring surgery onboard Acute blood loss anemia. Hemoglobin dropped from 8.8-5.8 given 2 units of the PIBC 2 units of FFP and INR was 1.27. Check H&H Hyponatremia. Sodium 126. Continue with IV normal saline Hyperkalemia. Potassium was 6.9 given Kayexalate, insulin and dextrose CKD. Cr 2.0. 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 Ultrasound of abdomen check a [employer]. Hepatitis panel (2) UTI (urinary tract infection) Status: Acute Problem Text: IV Zosyn and vancomycin Plan / VTE VTE Prophylaxis Ordered?: Yes Plan / Urinary Catheter Reason for insertion/continuin: Critical Pt monitoring Plan IVF: Initiate Diet: Continue Current Activity: Continue Current Anticipated Discharge: Home Current Medications Current Medications Acetaminophen (Tylenol Tab) 650 mg Q4HP PRN PO MILD PAIN or TEMP > 101; Start 11/07/16 at 03:15; Stop 12/07/16 at 03:14 Acetaminophen/ Hydrocodone Bitart ([place], Anexsia 5/325) 1 tab Q4HP PRN PO MODERATE PAIN (PS 5-7); Start 11/07/16 at 03:15; Stop 11/14/16 at 03:14 Dextrose (Dextrose 50%) 25 ml STAT STAT IV Last administered on 11/07/16 01: 04; Start 11/06/16 at 23:52; Stop 11/06/16 at 23:53; Status DC Docusate Sodium (Colace) 100 mg BID PO ; Start 11/07/16 at 09:00; Stop 12/07/16 at 08:59 Home Med (Med Rec Complete!) ASDIRECTED XX ; Start 11/07/16 at 00:45; Stop at 00:45; Status DC Insulin Human Regular (HumuLIN R INSULIN) 6 units STAT STAT SC Last administered on 11/07/16 01:04; Start 11/06/16 at 23:52; Stop 11/06/16 at 23:53 ; Status DC Morphine Sulfate (Morphine Sulfate Inj) 2 mg Q2HP PRN IV SEVERE PAIN (PS 8-10) ; Start 11/07/16 at 03:15; Stop 11/14/16 at 03:14 Ondansetron HCl (ZOFRAN INJection) 4 mg Q6HP PRN IV NAUSEA OR VOMITING; Start 11/07/16 at 03:15; Stop 12/07/16 at 03:14 Piperacillin Sod/ Tazobactam Sod 3.375 gm/Dextrose 50 ml @ 50 mls/hr Q6H IV ; Start 11/07/16 at 06:00; Stop 11/14/16 at 05:59 Sodium Chloride 1,000 ml @ 100 mls/hr Q10H IV Last administered on 11/07/16 01:00; Start 11/07/16 at 01:00; Stop 11/07/16 at 03:16; Status DC Sodium Chloride 1,000 ml @ 100 mls/hr Q10H IV Last administered on 11/07/16 03:06; Start 11/07/16 at 03:06; Stop 12/07/16 at 03:05 Allergies Coded Allergies: No Known Drug Allergy (Verified Allergy, Unknown, 10/25/16) Home Medications Home Medications Scheduled (Risperidone) 2 Mg Tab, 2 MG PO QHS, (Reported) Amiodarone HCl (Amiodarone Hydrochloride) 200 Mg Tab, 200 MG PO DAILY, (Reported ) Apixaban Base (Eliquis) 5 Mg Tab, 5 MG PO BID, (Reported) Aspirin (Aspir-81) 81 Mg Tab, 81 MG PO DAILY, (Reported) Calcium/Vitamin D (Calcium 600 + D 600-400 mg-Unit) 1 Tab Tab, 1 TAB PO BID, ( Reported) Carvedilol (Coreg) 3.125 Mg Tab, 3.125 MG PO BID, (Reported) Collagenase (Santyl) 250 Unit/Gm Oin, 1 DOSE TOP Q2D, (Reported) APPLIED TO RIGHT BIG TOE, RIGHT FOUR TOE, RIGHT HEEL, AND LEFT MEDIAL ANKLE EVERY OTHER DAY AT [facility] Insulin Aspart (Novolog) 100 U/Ml Inj, 1 DOSE SC AC, (Reported) PER SLIDING SCALE Insulin Detemir (Levemir) 1 Units/0.01 Ml Susp, 6 UNITS SC BID, (Reported) Lisinopril (Lisinopril) 2.5 Mg Tab, 2.5 MG PO DAILY, (Reported) Loperamide HCl (Loperamide HCl) 2 Mg Tab, 2 MG PO DAILY, (Reported) Magnesium Chloride (Mag64) 64 Mg Tabcr, 128 MG PO BID, (Reported) Metformin Hydrochloride (Metformin HCl) 1,000 Mg Tab, 1,000 MG PO BID, (Reported ) Multivitamins Chewable *[facility] STOCKED* (Animal Shapes with C & FA *[facility] STOCKED*) 1 Tab Chew, 1 TAB PO DAILY, (Reported) Oxybutynin Chloride (Oxybutynin Chloride ER) 10 Mg Tab, 10 MG PO QHS, (Reported) Paroxetine Hydrochloride (Paxil) 30 Mg Tab, 60 MG PO QHS, (Reported) Risperidone (Risperdal) 1 Mg Tab, 1 MG PO DAILY, (Reported) Simvastatin (Simvastatin) 20 Mg Tab, 20 MG PO QHS, (Reported) Spironolactone (Spironolactone) 25 Mg Tab, 25 MG PO DAILY, (Reported) Trimethoprim/Sulfamethoxazole (Bactrim Ds 800-160 mg) 1 Tab Tab, 1 TAB PO BID, ( Reported) 10 DAYS SUPPLY: STARTED ON 10/31 AT [facility] Scheduled PRN Acetaminophen (Acetaminophen) 325 Mg Tab, 650 MG PO Q4H PRN for PAIN / FEVER, ( Reported) Medical History and Physical Date of Admission Nov 07, 2016 at 03:06 History and Physical PRIMARY CARE PROVIDER: Unknown ATTENDING: Flaco Helm CHIEF COMPLAINT: Fall HISTORY OF PRESENT ILLNESS: 66-year-old female, history of seropositive had a fall from this serious and I'll presented to the emergency room with a large contusion on the left side of the abdomen while and scalp injury near presented does not have any active bleeding ongoing and person baseline mental status is like before PAST MEDICAL HISTORY: 1.. Cerebral palsy hypertensive. PAST SURGICAL HISTORY: Unable to OBTAIN SOCIAL HISTORY: Unable to obtain FAMILY HISTORY: Unable to obtain ALLERGIES: Please see below. REVIEW OF SYSTEMS: 1. No fever, chills, no shortness of breath, no chest pain, no constipation, no diarrhea, no focal weakness HOME MEDICATIONS: Please see below. PHYSICAL EXAMINATION: Vital signs as per the record and in the lipase moderate distress. HEENT and a contusion on the scalp. No apparent bleeding. CVS is regular,no murmurs. no gallops. 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 Vital Signs Vital Signs Date Time Temp Pulse Resp B/P (MAP) Pulse Ox O2 Delivery O2 Flow Rate FiO2 11/07/16 06:10 101/57 (72) 11/07/16 06:02 60 99 11/06/16 20:19 98.0 18 Room Air Laboratory Data Labs 24H Laboratory Tests 2 11/06/16 21:29: White Blood Count 7.2, Red Blood Count 3.42L, Hemoglobin 8.8L, Hematocrit 28.5L , Mean Corpuscular Volume 83.3, Mean Corpuscular Hemoglobin 25.6L, Mean Corpuscular Hemoglobin Concent 30.7L, Red Cell Distribution Width 16.1H, Platelet Count 318, Neutrophils (%) (Auto) 82.5H, Lymphocytes (%) (Auto) 9.8L, Monocytes (%) (Auto) 5.9H, Eosinophils (%) (Auto) 0.3, Basophils (%) (Auto) 0.4 , Neutrophils # (Auto) 6.0, Lymphocytes # (Auto) 0.8L, Monocytes # (Auto) 0.4, Eosinophils # (Auto) 0.0, Basophils # (Auto) 0.0, Large Unclassified Cells % 1.1 , Large Unclassified Cells # 0.1, Prothrombin Time 17.0H, Prothromb Time International Ratio 1.37, Activated Partial Thromboplast Time 27.3, Anion Gap 10 , Glomerular Filtration Rate 26.4L, Calcium Level 8.4L, Aspartate Amino Transf ( AST/SGOT) 254H, Alanine Aminotransferase (ALT/SGPT) 419H, Alkaline Phosphatase 55, Total Bilirubin 0.3, Direct Bilirubin 0.1, Total Creatine Kinase 91, Creatine Kinase MB 2.1, Creatine Kinase MB Relative Index 2.30, Troponin I 0.03 , Total Protein 6.1L, Albumin 3.2, Albumin/Globulin Ratio 1.10, Lipase 86 11/06/16 22:57: Urine Appearance HAZY, Urine Color YELLOW, Urine pH 5.0, Urine Specific Hortense 1.020, Urine Protein 1+H, Urine Glucose (UA) NEGATIVE, Urine Ketones TRACEH, Urine Urobilinogen 0.2, Urine Bilirubin NEGATIVE, Urine Leukocyte Esterase 2+H, Urine Blood 3+H, Urine Nitrite NEGATIVE, Urine WBC (Auto) 59H, Urine RBC (Auto) 71H, Urine Hyaline Casts (Auto) 0, Urine Bacteria (Auto) NEGATIVE, Urine Squamous Epithelial Cells 4, Urine Mucus (Auto) SMALL, Urine Sperm (Auto) 11/07/16 01:27: Anion Gap 7L, Glomerular Filtration Rate 27.5L, Calcium Level 6.9#L, Blood Urea Nitrogen 43H, Creatinine 1.93H, Sodium Level 131L, Potassium Level 6.9*H, Chloride Level 105, Carbon Dioxide Level 19L CBC/BMP Laboratory Tests 11/06/16 21:29 Red Blood Count 3.42 L, Mean Corpuscular Volume 83.3, Mean Corpuscular Hemoglobin 25.6 L, Mean Corpuscular Hemoglobin Concent 30.7 L, Red Cell Distribution Width 16.1 H, Neutrophils (%) (Auto) 82.5 H, Lymphocytes (%) (Auto ) 9.8 L, Monocytes (%) (Auto) 5.9 H, Eosinophils (%) (Auto) 0.3, Basophils (%) ( Auto) 0.4, Neutrophils # (Auto) 6.0, Lymphocytes # (Auto) 0.8 L, Monocytes # ( Auto) 0.4, Eosinophils # (Auto) 0.0, Basophils # (Auto) 0.0 11/07/16 01:27 Red Blood Count 2.24 L, Mean Corpuscular Volume 87.0, Mean Corpuscular Hemoglobin 25.8 L, Mean Corpuscular Hemoglobin Concent 29.7 L, Red Cell Distribution Width 16.2 H, Calcium Level 6.9 #L Home Medications Scheduled (Risperidone) 2 Mg Tab, 2 MG PO QHS Amiodarone HCl (Amiodarone Hydrochloride) 200 Mg Tab, 200 MG PO DAILY Apixaban Base (Eliquis) 5 Mg Tab, 5 MG PO BID Aspirin (Aspir-81) 81 Mg Tab, 81 MG PO DAILY Calcium/Vitamin D (Calcium 600 + D 600-400 mg-Unit) 1 Tab Tab, 1 TAB PO BID Carvedilol (Coreg) 3.125 Mg Tab, 3.125 MG PO BID Collagenase (Santyl) 250 Unit/Gm Oin, 1 DOSE TOP Q2D APPLIED TO RIGHT BIG TOE, RIGHT FOUR TOE, RIGHT HEEL, AND LEFT MEDIAL ANKLE EVERY OTHER DAY AT [facility] Insulin Aspart (Novolog) 100 U/Ml Inj, 1 DOSE SC AC PER SLIDING SCALE Insulin Detemir (Levemir) 1 Units/0.01 Ml Susp, 6 UNITS SC BID Lisinopril (Lisinopril) 2.5 Mg Tab, 2.5 MG PO DAILY Loperamide HCl (Loperamide HCl) 2 Mg Tab, 2 MG PO DAILY Magnesium Chloride (Mag64) 64 Mg Tabcr, 128 MG PO BID Metformin Hydrochloride (Metformin HCl) 1,000 Mg Tab, 1,000 MG PO BID Multivitamins Chewable *[facility] STOCKED* (Animal Shapes with C & FA *[facility] STOCKED*) 1 Tab Chew, 1 TAB PO DAILY Oxybutynin Chloride (Oxybutynin Chloride ER) 10 Mg Tab, 10 MG PO QHS Paroxetine Hydrochloride (Paxil) 30 Mg Tab, 60 MG PO QHS Risperidone (Risperdal) 1 Mg Tab, 1 MG PO DAILY Simvastatin (Simvastatin) 20 Mg Tab, 20 MG PO QHS Spironolactone (Spironolactone) 25 Mg Tab, 25 MG PO DAILY Trimethoprim/Sulfamethoxazole (Bactrim Ds 800-160 mg) 1 Tab Tab, 1 TAB PO BID 10 DAYS SUPPLY: STARTED ON 10/31 AT [facility] Scheduled PRN Acetaminophen (Acetaminophen) 325 Mg Tab, 650 MG PO Q4H PRN for PAIN / FEVER Allergies Coded Allergies: No Known Drug Allergy (Verified Allergy, Unknown, 10/25/16) SAUNDRA JONES MD Nov 07, 2016 06:45
--- NOTE | 2016-11-07 08:57 | REP ---
Chest one-view HISTORY: Trauma Comparison: 09/05/2016 The lungs are clear. The heart is upper limits of normal in size. The pulmonary vasculature is normal in appearance. There is an old fracture of the left clavicle. A cardiac pacemaker is present. Impression: No acute disease. Signed by Adolfo Zuniga MD 11/07/2016 08:49 A
[2016-11-07] MEDS: DOCUSATE SODIUM 100 MG CAP PO SCH ×2 (09:00→21:00)
--- NOTE | 2016-11-07 09:09 | REP ---
LEFT SHOULDER, FOUR VIEWS: HISTORY: Trauma. COMPARISON: 11/17/2014. There is an old fracture of the distal left clavicle. There is no acute fracture or dislocation. There is narrowing of the joint spaces. Osteophyte formation is present at the acromioclavicular joint. IMPRESSION: Degenerative change as described above. Signed by Adolfo Zuniga MD 11/07/2016 09:12 A
[2016-11-07 09:11] LABS: BASO % 0.2 % (0.0-1.0); EOS % 0.4 % (0.0-3.0); LARGE UNSTAINED CELL # 0.1 K/mm3 (0.0-0.4); LARGE UNSTAINED CELL % 0.8 % (0.0-4.0); LYMPH # 0.8 K/mm3 (1.5-4.5); LYMPH % 5.4 % (24.0-44.0); MEAN CORPUSCULAR HEMOGLOBIN 28.7 pg (27.0-33.0); MONO # 0.7 K/mm3 (0.0-0.8); MONO % 5.5 % (0.0-5.0); NEUTROPHILS % 87.7 % (36.0-66.0); PLATELET COUNT, AUTOMATED 157 k/mm3 (150-450); RED CELL DISTRIBUTION WIDTH 14.8 % (11.5-14.5); WHITE BLOOD COUNT 12.6 K/mm3 (4.0-10.0)
--- NOTE | 2016-11-07 11:00 | REP ---
ABDOMINAL ULTRASOUND: Real-time sonographic evaluation of the abdomen performed. The patient has had a prior cholecystectomy. There is no intrahepatic or extrahepatic biliary dilatation, common bile duct measuring 3 mm in diameter. The liver demonstrates homogeneous echotexture with no definite mass. The pancreas is not well seen due to overlying bowel gas, with no gross abnormality. The spleen could not be visualized. The left kidney could not be visualized. Again overlying bowel gas limits evaluation of the left-sided structures. The right kidney measures 10.4 x 3.9 x 4.5 cm with no hydronephrosis and no definite mass. The abdominal aorta could not be visualized. No ascites is seen. IMPRESSION: Limited exam due to extensive bowel gas. The patient is status post cholecystectomy. There is no biliary dilatation. No right hydronephrosis. Left kidney could not be visualized. Signed by Ion Mojica MD 11/07/2016 01:48 P
[2016-11-07 11:16] LABS: ALBUMIN 1.9 GM/DL (3.2-5.2); ALBUMIN/GLOBULIN RATIO 1.19 (1.00-1.93); ALKALINE PHOSPHATASE 34 U/L (45-117); ALT/SGPT 530 U/L (12-78); ANION GAP 9 MEQ/L (8-16); AST/SGOT 505 U/L (15-37); BILIRUBIN,TOTAL 0.9 MG/DL (0.2-1.0); BLOOD UREA NITROGEN 42 MG/DL (7-18); CALCIUM LEVEL 6.9 MG/DL (8.8-10.2); CARBON DIOXIDE LEVEL 15 MEQ/L (21-32); CHLORIDE LEVEL 105 MEQ/L (98-107); CREATININE FOR GFR 2.02 MG/DL (0.55-1.02); GAMMA GLUTAMYLTRANSPEPTIDASE 14 U/L (5-55); GLOMERULAR FILTRATION RATE 26.1 (>45); GLUCOSE, FASTING 300 MG/DL (80-110); MAGNESIUM LEVEL 1.8 MG/DL (1.8-2.4); PHOSPHORUS LEVEL 4.6 MG/DL (2.5-4.9); SODIUM LEVEL 129 MEQ/L (136-145); TOTAL PROTEIN 3.5 GM/DL (6.4-8.2)
[2016-11-07 11:22] LABS: POTASSIUM SERUM 6.7 MEQ/L (3.5-5.1)
--- NOTE | 2016-11-07 12:14 | REP ---
Chest one-view HISTORY: Central line insertion Comparison: 11/06/2016 The lungs are clear. The heart is normal in size. The pulmonary vasculature is normal in appearance. The patient is status post central line placement in the right atrium. There is no pneumothorax. Impression: The patient is status post central line placement. There is no pneumothorax. Signed by Adolfo Zuniga MD 11/07/2016 12:06 P
[2016-11-07] MEDS ORDERED: NS 1,000 ML IV ONE ×3 (12:30→22:00)
[2016-11-07] MEDS ORDERED: SODIUM CHLORIDE 0.9% 1000 ML IV ONE (12:45)
--- NOTE | 2016-11-07 12:45 | PHACANCOPD ---
PHARMACY VANCOMYCIN DOSING Pt Demographics Demographics Patient Age:66 , Weight:77.000 , Gender: female Adjusted Body Weight Date: 11/07/16, Adjusted Body Weight: Kg Vancomycin Vancomycin Target Ranges: 15-20 mcg/ml Vancomycin Load Y/N: Yes Load Dose Date Time Vancomycin Load Dose: 1G Date: 11/07/16 Time:0800 Vancomycin Dose Date: 11/07/16. Current Vancomycin Dose: [1G q24h@2000] Intermittent Dosing?: No Labs Labs Vital Signs Label Value Date Time Blood Pressure Assessment 58/34 (42) 11/07/16 1220 Source Automatic Cuff (NIBP) Blood Pressure Assessment 62/35 (44) 11/07/16 1215 Source Automatic Cuff (NIBP) Blood Pressure Assessment 57/33 (41) 11/07/16 1200 Source Automatic Cuff (NIBP) Item Value Date Time White Blood Count 7.2 K/mm3 11/06/162128 White Blood Count 14.3 K/mm3 H 11/07/16 0127 White Blood Count 12.6 K/mm3 H 11/07/16 0857 Creatinine 2.00 MG/DL H 11/06/16 2129 Creatinine 1.93 MG/DL H 11/07/16 0127 Creatinine 2.02 MG/DL H 11/07/16 1002 Micro Microbiology 11/07/16 Blood Culture, Received Pending 11/07/16 Blood Culture, Received Pending Creatinine Clearance Date:11/07/16. Creatinine Clearance: [1.93]. Assessment and Plan Maintaining Current Dose?: Yes Reason for dose change: No Dose Change Pharmacist Note Pharmacist Note Date: 11/07/16. Pharmacist note: Pt is a 66 year old female who presented to the ED after falling down stairs at her home at [facility] ([facility]) injuring left hip, shoulder and head ( no loss of consciousness). Pt has been hypotensive, labs show hyperkalemia, anemia, and ARABELLA. (baseline Scr is 1.0-1.2) Pt has elevated WBC. Dr. Sheth started pt on Zosyn and Vancomycin for possible sepsis. Pt has no history of MRSA. Last given Vanco in May 2015 1G q24h. Pt was given Vanco IV 1G at 0800. Will start 1G q24h at 2000. We will continue to monitor and adjust dose as needed. [facility] Nov 07, 2016 12:38
[2016-11-07] MEDS ORDERED: DEXTROSE 50% 50 ML SYRINGE IV PRN (14:00)
[2016-11-07] MEDS ORDERED: GLUCAGON FOR INJ 1 MG VIAL (J1610) SC PRN (14:00)
[2016-11-07] MEDS ORDERED: GLUCOSE 4 GM CHEW TABLET PO PRN (14:00)
[2016-11-07] MEDS: HumaLOG INSULIN (NovoLOG) PER UNIT SC SCH ×2 (14:33→19:21)
[2016-11-07] MEDS ORDERED: NOREPINEPHRINE BITARTRATE 8 MG in D5W 500 ML IV PRN (15:00)
[2016-11-07] MEDS: NOREPINEPHRINE BITARTRATE 8 MG in D5W 500 ML IV SCH ×5 (15:01→20:13)
[2016-11-07] MEDS: PIPERACILLIN/TAZOBACTAM SOD 3.375 GM in D5W MINI-BAG PLUS 50 ML IV SCH ×2 (15:02→23:05)
--- NOTE | 2016-11-07 15:39 | CR ---
DATE OF CONSULTATION: 11/07/2016 REQUESTING PHYSICIAN: Dr. Adolfo Ricci CONSULTING PHYSICIAN: Dr. Morgan REASON FOR CONSULTATION: Management of acute oliguric renal failure in the setting of shock along with hyperkalemia. CHIEF COMPLAINT: Patient was brought in to the emergency room yesterday after falling from stairs at the [facility] [place]. HISTORY OF PRESENT ILLNESS: Carisa Gongora is a 66-year-old female with a past medical history of hypertension, sick sinus syndrome, atrial fibrillation, on chronic anticoagulation, diabetes mellitus, type 2, and multiple other comorbidities as mentioned below. She was brought into the emergency room last night after a fall from the stairs at [facility]. She was going downstairs and fell forward, striking her left shoulder and left hip. Initial evaluation in the emergency room showed that patient was hypotensive with blood pressure in 50s and 60s. Patient required multiple intravenous (IV) fluid boluses and 4 units packed red blood cells (PRBC) transfusion along with 2 units of fresh frozen plasma (FFP). Initial scanning in the emergency room showed that patient had a left clavicular fracture, large left flank and hip hematoma. Patient was also found to have shock liver. Patient became oliguric in the emergency room (ER) despite fluid resuscitation. Her creatinine has bumped from admission creatinine of 2 to 2.02 now. Her potassium is 6.7 now. Nephrology service was called for further help in the management of acute oliguric renal failure in the setting of shock. PAST MEDICAL HISTORY: History was obtained from medical team and patient's chart. Patient is unable to provide any reliable history at this time. She has history of: 1. Mental retardation. 2. Atrial fibrillation, chronically on anticoagulation. 3. History of sick sinus syndrome, status post pacemaker placement. 4. Diabetes mellitus, type 2. 5. Mitral valve disease. 6. Hypertension. 7. Hyperlipidemia. PAST SURGICAL HISTORY: 1. Status post cholecystectomy in the past. 2. Status post hysterectomy. 3. Status post pacemaker in 2011. 4. History of appendectomy in the past. ALLERGIES: No known drug allergies. FAMILY HISTORY: Unable to obtain family history in this patient with mental retardation and trauma. SOCIAL HISTORY: Patient is a resident of [facility]. There is no history of smoking, drug abuse, or alcohol abuse. REVIEW OF SYSTEMS: Review of systems was not very reliable in this patient, because she has mental retardation and currently has trauma and critically ill; however, patient reports that she is thirsty. She is complaining of pain at the left clavicle site and pain in the abdomen. PHYSICAL EXAMINATION: GENERAL: Patient is awake, alert, oriented times one, lying in bed in mild painful distress. VITAL SIGNS: Temperature is 98.1 degrees Fahrenheit, blood pressure is 63/33, pulse is 60, respiratory rate of 16, saturating 98% on room air. Intake and output: Urine output is not recorded at this time; however, I saw about 100 mL of urine in the bag. HEAD AND NECK: Pupils equally round and reactive to light. Head is atraumatic and normocephalic. Mucous membranes are very dry. Neck is supple. There is no jugular venous distention (JVD). Patient has a large bruise in the left-sided clavicular region. CARDIOVASCULAR: S1, S2, irregularly irregular heart rate. No murmur, rub, or gallop. RESPIRATORY: Chest is clear to auscultation bilaterally. Bilateral equal air entry. No rales or rhonchi. ABDOMEN: Abdomen is soft, tender to deep palpation with bruises over the abdominal area. EXTREMITIES: No clubbing or cyanosis. Pulses are 2+. CENTRAL NERVOUS SYSTEM: No focal deficits at this time. Patient is able to move the extremities. SKIN: Patient has large ecchymosis on the skin, especially on the left side because of recent fall. Otherwise no rashes. PSYCHIATRIC: Patient has mental retardation. LYMPH NODES: No significant cervical, axillary, or inguinal lymphadenopathy. LABORATORY REVIEW: CBC showed a WBC of 12.6, hemoglobin 9.6 after 4 units of PRBC transfusion, and platelets 157. INR is 1.3. Urinalysis showed 1+ protein, 2+ leukocyte esterase, 59 WBC, and 71 RBC. BMP done today morning showed sodium 129, potassium 6.7, chloride 105, bicarbonate is 15, BUN 42, creatinine is 2.02, calcium is 6.9, phosphorus 4.6, magnesium 1.8. Total bilirubin 0.9, AST is 505, ALT is 530, alkaline phosphatase is 34, albumin is 1.9. Microbiology: Blood cultures are pending. IMAGING: CT scan of the abdomen and pelvis showed large mass in the subcutaneous tissue in the left flank region, consistent with a soft tissue contusion and hematoma. No intraperitoneal traumatic injury. No evidence of ascites. CT scan of the cervical spine showed no acute fracture or dislocation. CT scan of the chest showed no acute traumatic injury. Chest x-ray showed no acute disease. CT scan of the head showed no acute hemorrhage or infarct. There was left maxillary sinusitis. X-ray of the left shoulder showed degenerative changes. There was no acute fracture or dislocation. CURRENT INPATIENT MEDICATIONS: Patient's medications were all reviewed by me. - She is getting calcium gluconate intravenous (IV) for hypokalemia. - She is getting normal saline (NS) at 100 mL an hour. - She is on Zosyn 3.375 gram IV every 6 hours. - vancomycin 1 gram IV times one dose followed by every 24 hours - Tylenol as needed - Colace 100 mg twice a day - Zofran 4 mg IV as needed - Kayexalate 30 gram by mouth one dose was given. ASSESSMENT: A 66-year-old female with past medical history of mental retardation, hypertension, atrial fibrillation, diabetes mellitus, type 2, admitted to intensive care unit (ICU) at this time because of hemorrhage shock, acute oliguric renal failure, and shock liver as well. PLAN: 1. 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 Patient has history of mental retardation but she is able to follow commands at this time. CT scan of the head is normal at this time. 2. Cardiovascular system (CVS). Patient is in hemorrhagic shock at this time. Patient needs a central line, central venous pressure (CVP) monitoring, IV fluid boluses. Try to maintain a mean arterial pressure (MAP) of about 65. Continue IV fluid, and patient can get fluid boluses to maintain a CVP above 12. 3. Respiratory. Patient is not in any respiratory distress at this time. CT chest is normal. Continue to monitor for now. 4. Gastrointestinal (GI). CT scan of the abdomen and pelvis showed no intraperitoneal hematoma. There is no splenic laceration; however, patient does have a shock liver because of hypotension. If needed, patient can be started on pressors to maintain MAP about 65 to help in the improvement of renal failure and liver failure. 5. Renal. Patient is in acute oliguric renal failure because of the shock and hypotension. Potassium level is getting worse. I have discussed this with Dr. Helm. Patient would need a temporarily dialysis catheter, and I shall start the patient on continuous veno-venous hemodiafiltration (CVVHDF). We shall continue to monitor the patient for improvement of the renal function, but because of patient is critically ill with electrolytes abnormalities, she will need to start CVVHDF soon for stabilization. 6. Hematological/oncological. Patient has hemorrhagic shock. She has been given 4 units of PRBC transfusion. Hemoglobin is 9.6. Continue to monitor complete blood count (CBC) every 6 hours for now. Transfuse as needed for hemoglobin drop below 8. 7. Endocrine. Patient has a history of diabetes mellitus, type 2. Hold the metformin at this time. Continue insulin sliding scale as needed. 8. Electrolytes. Hyponatremia is secondary to acute renal failure and aggressive IV fluid hydration. Hyponatremia is expected to improve with CVVHDF once we start it. 9. Hyperkalemia. Patient was already given aggressive IV fluid hydration. Was given a dose of Kayexalate as well. Potassium is not improving. It is still 6.7 at this time. I am planning to start CVVHDF on this patient for improvement of hyperkalemia. 10. Metabolic acidosis. Patient has metabolic acidosis because of shock and acute renal failure. Acidosis is expected to improve with CVVHDF. 11. Hypocalcemia. It is secondary to aggressive blood transfusions. Calcium is 6.9. Patient is getting calcium gluconate 1 gram IV this morning. 12. Musculoskeletal. Patient has trauma and large hematoma on the left-sided flank, and she has left shoulder trauma as well. Management is as per surgical team. Thank you for involving us in the care of this patient. We shall be happy to follow the patient along with you while she is in the ICU. Plan of care was discussed with the hospitalist, Dr. Adolfo Ricci, and with the surgical team, Dr. Helm. Patient will get dialysis catheter soon, and we shall start CVVHD on this patient. I spent about an hour in coordinating the care of this patient. HIMANSHU
[2016-11-07] MEDS ORDERED: NS 500 ML IV ONE (16:15)
[2016-11-07 17:22] LABS: BASO % 0.1 % (0.0-1.0); EOS % 0.1 % (0.0-3.0); LARGE UNSTAINED CELL # 0.1 K/mm3 (0.0-0.4); LYMPH % 10.3 % (24.0-44.0); MEAN CORPUSCULAR VOLUME 87.7 fl (80.0-96.0); MONO # 0.6 K/mm3 (0.0-0.8); MONO % 5.6 % (0.0-5.0); NEUTROPHILS # 8.2 K/mm3 (1.8-7.7); NEUTROPHILS % 82.8 % (36.0-66.0); PLATELET COUNT, AUTOMATED 122 k/mm3 (150-450); RED CELL DISTRIBUTION WIDTH 14.7 % (11.5-14.5); WHITE BLOOD COUNT 9.9 K/mm3 (4.0-10.0)
[2016-11-07] MEDS ORDERED: LIDOCAINE 1% MDV 20ML VIAL As Ordered ONE (17:27)
[2016-11-07 17:40] LABS: ALBUMIN 1.9 GM/DL (3.2-5.2); ALBUMIN/GLOBULIN RATIO 1.19 (1.00-1.93); BILIRUBIN,DIRECT 0.2 MG/DL (0.0-0.2); BILIRUBIN,TOTAL 0.6 MG/DL (0.2-1.0); CALCIUM LEVEL 6.1 MG/DL (8.8-10.2); CREATININE FOR GFR 2.14 MG/DL (0.55-1.02); GLOMERULAR FILTRATION RATE 24.4 (>45); TOTAL PROTEIN 3.5 GM/DL (6.4-8.2)
[2016-11-07 17:50] LABS: POTASSIUM SERUM 5.5 MEQ/L (3.5-5.1)
[2016-11-07] MEDS ORDERED: HEPARIN 1,000 UNITS/ML 10ML VIAL (FOR RADIOLOGY& DIALYSIS ONLY) IV PRN ×2 (18:45)
--- NOTE | 2016-11-07 19:58 | REPKIM ---
CLINICAL HISTORY: Patient with acute renal failure and hyperkalemia. The clinical team has requested a central venous catheter for CVVHDF. PROCEDURE PERFORMED: Right IJ Non-tunneled Schon Central Venous Catheter Placement INTERVENTIONALIST: Dr. Nate Ag MEDICATIONS: Local lidocaine 2% EBL: less than 10 mL DEVICE USED: 14F Schon Dialysis Catheter CONSENT: The risks, benefits and alternatives to the procedure were explained to the patients family and informed written consent was obtained. PROCEDURE/FINDINGS: The patient was placed in the supine position in the ICU. Time out procedure was performed. The right neck was prepped and draped in a usual sterile fashion. Real time ultrasound was used and permanent image stored. Using real time ultrasound guidance the right IJ vein was punctured, after infiltration of the skin and deep tissues with local anesthetic. Using this access, a double lumen 14-Italian 15-cm Schon dialysis catheter was inserted. Post procedure chest radiograph showed the tip of the catheter at the SVC. The catheter was secured at the skin exit site with 2-0 suture. Each port of the catheter was flushed with saline. A sterile dressing was then applied. The patient tolerated the procedure well with no immediate complications. This procedure was performed using ultrasound. Dr. Ag was present. IMPRESSION: 1. Ultrasound of the neck demonstrates patent left IJ vein and compressible. 2. Successful right IJ Schon catheter placement as discussed above. The catheter is ready for immediate use. [facility]
[2016-11-07] MEDS: VANCOMYCIN HCL 1,000 MG, VIAL MATE ADAPTER 1 EACH in D5W 250 ML IV SCH (20:44)
--- NOTE | 2016-11-07 21:14 | CR ---
DATE: 11/07/2016 I was asked earlier this evening to see the patient on an urgent basis to make an evaluation regarding her capacity to make decisions related to her healthcare proxy. I was asked by Dr. Ricci, hospitalist, to see her. I came to see the patient in the intensive care unit (ICU) and at that time, about 30 minutes ago, the staff was doing procedures related to her renal care, that took a while and I was unable to interview the patient. I left and asked them to call when they were done. I just called the ICU again, a few minutes ago, they informed me that the previous procedure has run into some complications and they are repeating it and they will call me once they are done. That is anticipated to take about another 30 minutes.
--- NOTE | 2016-11-07 21:53 | RO ---
DATE OF PROCEDURE: 11/07/2016 PREPROCEDURE DIAGNOSIS: Hypotension, trauma, need for vascular access. POSTPROCEDURE DIAGNOSIS: Hypotension, trauma, need for vascular access. PROCEDURE: Insertion of right subclavian central line. SURGEON: Dr. Flaco Skinner FINANCIAL SERVICES REPRESENTATIVE: ANESTHESIA: DESCRIPTION OF PROCEDURE: The patient's right infraclavicular fossa was prepped and draped in the usual sterile fashion. The infraclavicular fossa was infiltrated with 1% Xylocaine, and the vein was found on the third pass. Wire was placed without difficulty. There were no PVCs. Tract was dilated, and the catheter was placed by Seldinger technique. Ports were aspirated and flushed without difficulty. Catheter was secured to the chest wall with two #3-0 silk sutures. The patient tolerated the procedure well, and a chest x-ray is pending.
[2016-11-07 23:12] LABS: MEAN CORPUSCULAR HEMOGLOBIN 30.5 pg (27.0-33.0); MEAN CORPUSCULAR HGB CONC 33.7 g/dl (32.0-36.5); MEAN CORPUSCULAR VOLUME 90.5 fl (80.0-96.0); RED CELL DISTRIBUTION WIDTH 14.4 % (11.5-14.5)
[2016-11-07 23:35] LABS: ALBUMIN 1.6 GM/DL (3.2-5.2); ALBUMIN/GLOBULIN RATIO 0.89 (1.00-1.93); BILIRUBIN,TOTAL 0.6 MG/DL (0.2-1.0); CALCIUM LEVEL 6.1 MG/DL (8.8-10.2); CREATININE FOR GFR 1.77 MG/DL (0.55-1.02); GLOMERULAR FILTRATION RATE 30.4 (>45); MAGNESIUM LEVEL 1.4 MG/DL (1.8-2.4); PHOSPHORUS LEVEL 3.5 MG/DL (2.5-4.9); POTASSIUM SERUM 5.2 MEQ/L (3.5-5.1); TOTAL PROTEIN 3.4 GM/DL (6.4-8.2)
[2016-11-08] VITALS (90 sets, daily range): BP systolic 73–196; BP diastolic 41–136
[2016-11-08] MEDS ORDERED: MAG SULF 1GM/100ML (MAG RUN) 1 GM in APPROPRIATE DILUENT 1 EA IV SCH (00:15)
[2016-11-08] MEDS: HumaLOG INSULIN (NovoLOG) PER UNIT SC SCH ×4 (00:19→17:50)
[2016-11-08] MEDS: NOREPINEPHRINE BITARTRATE 8 MG in D5W 500 ML IV SCH ×12 (00:22→18:00)
[2016-11-08] MEDS ORDERED: MAG SULF 1GM/100ML (MAG RUN) 1 GM in APPROPRIATE DILUENT 1 EA IV ONE ×3 (01:00)
[2016-11-08] MEDS: PIPERACILLIN/TAZOBACTAM SOD 3.375 GM in D5W MINI-BAG PLUS 50 ML IV SCH ×4 (03:31→21:29)
[2016-11-08 05:25] LABS: INR 1.62
[2016-11-08 05:27] LABS: BASO % 0.3 % (0.0-1.0); EOS % 0.4 % (0.0-3.0); LARGE UNSTAINED CELL # 0.1 K/mm3 (0.0-0.4); LYMPH # 1.2 K/mm3 (1.5-4.5); LYMPH % 7.9 % (24.0-44.0); MEAN CORPUSCULAR HEMOGLOBIN 30.9 pg (27.0-33.0); MEAN CORPUSCULAR HGB CONC 35.2 g/dl (32.0-36.5); MEAN CORPUSCULAR VOLUME 87.8 fl (80.0-96.0); MONO # 0.6 K/mm3 (0.0-0.8); MONO % 4.2 % (0.0-5.0); NEUTROPHILS # 11.5 K/mm3 (1.8-7.7); NEUTROPHILS % 86.2 % (36.0-66.0); RED CELL DISTRIBUTION WIDTH 14.6 % (11.5-14.5); WHITE BLOOD COUNT 13.4 K/mm3 (4.0-10.0)
[2016-11-08 05:28] LABS: PLATELET COUNT, AUTOMATED 85 k/mm3 (150-450)
[2016-11-08 05:43] LABS: PHOSPHORUS LEVEL 2.9 MG/DL (2.5-4.9)
[2016-11-08 05:47] LABS: ALBUMIN 1.7 GM/DL (3.2-5.2); BILIRUBIN,TOTAL 0.5 MG/DL (0.2-1.0); CALCIUM LEVEL 6.4 MG/DL (8.8-10.2); CREATININE FOR GFR 1.3 MG/DL (0.55-1.02); GLOMERULAR FILTRATION RATE 43.4 (>45); POTASSIUM SERUM 4.5 MEQ/L (3.5-5.1); TOTAL PROTEIN 3.4 GM/DL (6.4-8.2)
[2016-11-08] MEDS ORDERED: LIDOCAINE 1% MDV 20ML VIAL SC ONE (07:30)
--- NOTE | 2016-11-08 07:38 | IPNPDOC ---
Subjective Date Seen The patient was seen on 11/08/16. Subjective Chief Complaint/HPI The patient is a 66-year-old female admitted with a reason for visit of Clavicular Fracture, Hematoma. Events since last encounter Review of systems unreliable with history of MR and acute medical issues. General: Reports: Chills, Denies: ROS Unobtainable, Night Sweats, Fatigue, Malaise, Normal Appetite, Other Symptoms Constitutional: Reports: Chills, Denies: Fever, Malaise, Night Sweats, Weakness, Fatigue, Weight Loss, Lethargy, Other Eyes: Denies: Pain, Vision change, Conjunctivae inflammation, Eyelid inflammation, Redness, Other ENT: Denies: Head Aches, Ear Pain, Dysphagia, Sinus Congestion, Post Nasal Drip , Sore Throat, Epistaxis, Other Symptoms Skin: Denies: Rash, Lesions, Jaundice, Bruising, Itching, Dry, Breakdown, Nail Changes, Other Pulmonary: Denies: Dyspnea, Cough, Pleuritic Chest Pain, Other Symptoms Cardiovascular: Denies: Chest Pain, Palpitations, Orthopnea, Paroxysmal Noc. Dyspnea, Edema, Lt Headedness, Other Symptoms Gastrointestinal: Denies: Nausea, Vomiting, Abdominal Pain, Diarrhea, Constipation, Melena, Hematochezia, Other Symptoms Genitourinary: Denies: Dysuria, Frequency, Incontinence, Hematuria, Retention, Other Symptoms Hematologic: Reports: Bruising, Denies: Bleeding Excessively, Petecchia, Purpura, Enlarged Lymph Nodes, Other Hematologic Musculoskeletal: Reports: Shoulder Pain Objective Physical Examination General Exam: Positive: Alert, Cooperative, No Acute Distress Eye Exam: Positive: PERRLA Chest Exam: Positive: Clear to auscultation, Normal air movement, Other (PPM noted in left infraclavicular fossa, some swelling around left clavicle) Heart Exam: Positive: Rate Normal Telemetry: Positive: Other Telemetry: (paced ) Abdomen Exam: Positive: Normal bowel sounds, Soft, Tenderness, Other (obese) Extremity Exam: Positive: Tenderness, Other (large left flank/hip hematoma, appears to be smaller from demarcated markings) Psych Exam: Negative: Oriented x 3 (oriented to person and place) Assessment /Plan Problems (1) Hemorrhagic shock Status: Resolved Response to Treatment: Progressing Discussed With: Patient, Family with Pt Consent Problem Specific Plan: Monitor Clinically, Repeat Labs, Repeat Tests Problem Text: Secondary to large left flank/hip hematoma - transfuse to keep Hg >8. Complicated with afib on NOAC (Eliquis). Today is day #2 off Eliquis. Some concern for for splenic rupture - US spleen pending. Still requiring pressor support, but down to 14mcg from 30 yesterday. CVP improved from 4 to 7 today with IV boluses. Titrate levophed to keep MAP > 65. Leukocytosis - currently day #2 Zosyn/Vanco - no clear infectious source. Possibly reactive. (2) Shock liver Status: Acute Discussed With: Patient Problem Specific Plan: Repeat Labs Problem Text: Some improvement, likely secondary to #1 hemorrhagic shock. Hepatitis panel unremarkable. Liver ultrasound unremarkable. (3) ARABELLA (acute kidney injury) Status: Resolved Response to Treatment: Progressing Discussed With: Ice Cream Server, Patient Problem Specific Plan: Consult Specialist, Repeat Labs Problem Text: Improving with CVVHDF. Discussed with nephrology, assistance appreciated. (4) Acute blood loss anemia Status: Resolved Response to Treatment: Progressing Discussed With: Patient Problem Specific Plan: Monitor Clinically, Repeat Labs Problem Text: Secondary to hemorrhage/hematoma from fall. As above, transfuse to keep Hgb > 8. (5) Diabetes Status: Chronic Discussed With: Patient Problem Specific Plan: Repeat Labs (6) Afib Status: Chronic Problem Specific Plan: Monitor Clinically Problem Text: Rate controlled. Was anti-coagulated with NOAC. Discontinued secondary to hemorrhagic shock. (7) Presence of permanent cardiac pacemaker Status: Chronic Problem Specific Plan: Monitor Clinically Problem Text: Paced rhythm. Reason for PPM not clear, possibly SSS. (8) Mental retardation Status: Chronic (9) HTN (hypertension) (10) Dyslipidemia (11) Fall (on) (from) other stairs and steps, initial encounter Status: Acute Discussed With: Patient Problem Specific Plan: Consult Specialist Problem Text: Appears to have been mechanical fall as per patient recollection , however she is questionable historian. Left clavicular fracture noted on imaging, ortho consultation pending. Plan/VTE VTE Prophylaxis Ordered?: Yes Plan/Urinary Catheter Reason for insertion/continuin: Critical Pt monitoring Plan IVF: Continue Diet: Make NPO Activity: Bedrest Diagnostics: Check Labs, Obtain Cultures Anticipated Discharge: Home Advance Directives: HCP Anemia appears to be improving. Continue with serial H/H. Renal function improving - continue with CVVHDF - follow as per nephrology, assistance appreciated. Transaminitis/shock liver improving. Still requiring pressor support, but have been titrating down, CVP improving. Patient does have capacity to designate HCP - psychiatry consultation appreciated. Very guarded prognosis. VS, I&O, 24H, Fishbone Vital Signs/I&O Vital Signs Date Time Temp Pulse Resp B/P (MAP) Pulse Ox O2 Delivery O2 Flow Rate FiO2 11/08/16 06:15 70 16 92/46 (61) 94 Nasal Cannula 2.0 11/08/16 05:52 96.6 I&O- Last 24 Hours up to 6 AM 11/08/16 05:59 Intake Total 9308 ml Output Total 125 ml Balance 9183 ml Laboratory Data 24H LABS Laboratory Tests 2 11/07/16 08:57: White Blood Count 12.6H, Red Blood Count 3.34L, Hemoglobin 9.6#L, Hematocrit 29.0L, Mean Corpuscular Volume 87.0, Mean Corpuscular Hemoglobin 28.7, Mean Corpuscular Hemoglobin Concent 33.0, Red Cell Distribution Width 14.8H, Platelet Count 157, Neutrophils (%) (Auto) 87.7H, Lymphocytes (%) (Auto) 5.4L, Monocytes (%) (Auto) 5.5H, Eosinophils (%) (Auto) 0.4, Basophils (%) (Auto) 0.2 , Neutrophils # (Auto) 11.0H, Lymphocytes # (Auto) 0.8L, Monocytes # (Auto) 0.7 , Eosinophils # (Auto) 0.0, Basophils # (Auto) 0.0, Large Unclassified Cells % 0.8, Large Unclassified Cells # 0.1 11/07/16 10:02: Anion Gap 9, Glomerular Filtration Rate 26.1L, Blood Urea Nitrogen 42H, Creatinine 2.02H, Sodium Level 129L, Potassium Level 6.7*H, Chloride Level 105, Carbon Dioxide Level 15L, Calcium Level 6.9L, Phosphorus Level 4.6, Aspartate Amino Transf (AST/SGOT) 505H, Alanine Aminotransferase (ALT/SGPT) 530H, Gamma Glutamyl Transpeptidase 14, Alkaline Phosphatase 34L, Total Bilirubin 0.9#, Total Protein 3.5#L, Albumin 1.9#L, Magnesium Level 1.8, Albumin/Globulin Ratio 1.19, Tumor Marker Alpha Fetoprotein 1.5 11/07/16 14:24: Bedside Glucose (Misc Panel) 310H 11/07/16 16:56: White Blood Count 9.9, Red Blood Count 2.29L, Hemoglobin 6.6#*L, Hematocrit 20.1L, Mean Corpuscular Volume 87.7, Mean Corpuscular Hemoglobin 29.0, Mean Corpuscular Hemoglobin Concent 33.0, Red Cell Distribution Width 14.7H, Platelet Count 122L, Neutrophils (%) (Auto) 82.8H, Lymphocytes (%) (Auto) 10.3L , Monocytes (%) (Auto) 5.6H, Eosinophils (%) (Auto) 0.1, Basophils (%) (Auto) 0.1, Neutrophils # (Auto) 8.2H, Lymphocytes # (Auto) 1.0L, Monocytes # (Auto) 0.6, Eosinophils # (Auto) 0.0, Basophils # (Auto) 0.0, Large Unclassified Cells % 1.0, Large Unclassified Cells # 0.1, Anion Gap 8, Glomerular Filtration Rate 24.4L, Calcium Level 6.1L, Aspartate Amino Transf (AST/SGOT) 868H, Alanine Aminotransferase (ALT/SGPT) 679H, Alkaline Phosphatase 35L, Total Bilirubin 0.6 , Total Protein 3.5L, Albumin 1.9L, Albumin/Globulin Ratio 1.19, Direct Bilirubin 0.2, Total Creatine Kinase 99, Creatine Kinase MB 1.7, Creatine Kinase MB Relative Index 1.71, Troponin I 0.03, Thyroid Stimulating Hormone (TSH ) 2.410 11/07/16 19:13: Bedside Glucose (Misc Panel) 258H 11/07/16 23:00: Anion Gap 10, Glomerular Filtration Rate 30.4L, Blood Urea Nitrogen 33H, Creatinine 1.77H, Sodium Level 138#, Potassium Level 5.2H, Chloride Level 111H, Carbon Dioxide Level 17L, Calcium Level 6.1L, Phosphorus Level 3.5#, Aspartate Amino Transf (AST/SGOT) 975H, Alanine Aminotransferase (ALT/SGPT) 756H, Alkaline Phosphatase 31L, Total Bilirubin 0.6, Total Protein 3.4L, Albumin 1.6L , Magnesium Level 1.4L, Albumin/Globulin Ratio 0.89L 11/08/16 00:14: Bedside Glucose (Misc Panel) 205H 11/08/16 05:07: Anion Gap 8, Glomerular Filtration Rate 43.4L, Blood Urea Nitrogen 24H, Creatinine 1.30H, Sodium Level 132L, Potassium Level 4.5, Chloride Level 102, Carbon Dioxide Level 22, Calcium Level 6.4L, Phosphorus Level 2.9, Aspartate Amino Transf (AST/SGOT) 874H, Alanine Aminotransferase (ALT/SGPT) 845H, Alkaline Phosphatase 33L, Total Bilirubin 0.5, Total Protein 3.4L, Albumin 1.7L , Magnesium Level 2.0, Albumin/Globulin Ratio 1.00, White Blood Count 13.4H, Red Blood Count 2.57L, Hemoglobin 7.9L, Hematocrit 22.6L, Mean Corpuscular Volume 87.8, Mean Corpuscular Hemoglobin 30.9, Mean Corpuscular Hemoglobin Concent 35.2, Red Cell Distribution Width 14.6H, Platelet Count 85L, Neutrophils (%) (Auto) 86.2H, Lymphocytes (%) (Auto) 7.9L, Monocytes (%) (Auto) 4.2, Eosinophils (%) (Auto) 0.4, Basophils (%) (Auto) 0.3, Neutrophils # (Auto) 11.5H, Lymphocytes # (Auto) 1.2L, Monocytes # (Auto) 0.6, Eosinophils # (Auto) 0.0, Basophils # (Auto) 0.0, Large Unclassified Cells % 1.0, Large Unclassified Cells # 0.1, Prothrombin Time 19.3H, Prothromb Time International Ratio 1.62 CBC/BMP Laboratory Tests 11/07/16 08:57 Red Blood Count 3.34 L, Mean Corpuscular Volume 87.0, Mean Corpuscular Hemoglobin 28.7, Mean Corpuscular Hemoglobin Concent 33.0, Red Cell Distribution Width 14.8 H, Neutrophils (%) (Auto) 87.7 H, Lymphocytes (%) (Auto ) 5.4 L, Monocytes (%) (Auto) 5.5 H, Eosinophils (%) (Auto) 0.4, Basophils (%) ( Auto) 0.2, Neutrophils # (Auto) 11.0 H, Lymphocytes # (Auto) 0.8 L, Monocytes # (Auto) 0.7, Eosinophils # (Auto) 0.0, Basophils # (Auto) 0.0 11/07/16 10:02 Calcium Level 6.9 L, Phosphorus Level 4.6, Aspartate Amino Transf (AST/SGOT) 505 H, Alanine Aminotransferase (ALT/SGPT) 530 H, Gamma Glutamyl Transpeptidase 14, Alkaline Phosphatase 34 L, Total Bilirubin 0.9 #, Total Protein 3.5 #L, Albumin 1.9 #L 11/07/16 16:56 Red Blood Count 2.29 L, Mean Corpuscular Volume 87.7, Mean Corpuscular Hemoglobin 29.0, Mean Corpuscular Hemoglobin Concent 33.0, Red Cell Distribution Width 14.7 H, Neutrophils (%) (Auto) 82.8 H, Lymphocytes (%) (Auto ) 10.3 L, Monocytes (%) (Auto) 5.6 H, Eosinophils (%) (Auto) 0.1, Basophils (%) (Auto) 0.1, Neutrophils # (Auto) 8.2 H, Lymphocytes # (Auto) 1.0 L, Monocytes # (Auto) 0.6, Eosinophils # (Auto) 0.0, Basophils # (Auto) 0.0 11/07/16 23:00 Red Blood Count 2.89 L, Mean Corpuscular Volume 90.5, Mean Corpuscular Hemoglobin 30.5, Mean Corpuscular Hemoglobin Concent 33.7, Red Cell Distribution Width 14.4, Calcium Level 6.1 L, Phosphorus Level 3.5 #, Aspartate Amino Transf (AST/SGOT) 975 H, Alanine Aminotransferase (ALT/SGPT) 756 H, Alkaline Phosphatase 31 L, Total Bilirubin 0.6, Total Protein 3.4 L, Albumin 1.6 L 11/08/16 05:07 Red Blood Count 2.57 L, Mean Corpuscular Volume 87.8, Mean Corpuscular Hemoglobin 30.9, Mean Corpuscular Hemoglobin Concent 35.2, Red Cell Distribution Width 14.6 H, Neutrophils (%) (Auto) 86.2 H, Lymphocytes (%) (Auto ) 7.9 L, Monocytes (%) (Auto) 4.2, Eosinophils (%) (Auto) 0.4, Basophils (%) ( Auto) 0.3, Neutrophils # (Auto) 11.5 H, Lymphocytes # (Auto) 1.2 L, Monocytes # (Auto) 0.6, Eosinophils # (Auto) 0.0, Basophils # (Auto) 0.0, Calcium Level 6.4 L, Aspartate Amino Transf (AST/SGOT) 874 H, Alanine Aminotransferase (ALT/SGPT) 845 H, Alkaline Phosphatase 33 L, Total Bilirubin 0.5, Total Protein 3.4 L, Albumin 1.7 L Microbiology Microbiology 11/07/16 Blood Culture, Received Pending 11/07/16 Blood Culture, Received Pending 11/07/16 Urine Culture, Received Pending RUBI CARTY MD Nov 08, 2016 07:38
[2016-11-08] MEDS: DOCUSATE SODIUM 100 MG CAP PO SCH ×2 (08:18→21:29)
[2016-11-08] MEDS ORDERED: NS 1,000 ML IV ONE (10:15)
--- NOTE | 2016-11-08 10:22 | CR ---
DATE OF CONSULTATION: 11/07/2016 CHIEF COMPLAINT: She offers no complaint herself. She has had a fall, and she has been treated for it. SUBJECTIVE: She is 66 years old. She has a history of obsessive-compulsive disorder, as well as intellectual disability. She is a resident at [facility] ([facility]). Sees Dr. Rosas in the outpatient clinic for psychiatric care. I have been asked to see this patient this evening by Dr. Ricci, hospitalist, who informed me that the patient had a healthcare proxy, her sister, but there was some administrative difficulty with the form that was signed, which made the form and the proxy invalid. I was asked to do an urgent evaluation for her capacity to make the decision regarding her healthcare proxy. I came in soon afterwards. I was unable to see the patient, as a procedure was being done related to her renal care, and a couple of attempts were made afterwards to see her again, when I was finally informed that the patient was ready. She was apparently at the residence, had a fall, fell from stairs. I believe she struck her left hip and shoulder, as well as her head, and she apparently did not lose consciousness. Examination has shown a significant hematoma in the left lower flank and hip area. She has a fracture at the distal aspect of the left clavicle. She has been hyperkalemic. There has been some acute kidney injury, and they are stabilizing her. She has been seen by the engineering programmer, and she is under Dr. Helm, her surgeon's care. MEDICATIONS: Have included: - amiodarone - Eliquis - aspirin - calcium - carvedilol - loperamide - metformin - oxybutynin - paroxetine 60 mg daily - risperidone 3 mg a day in divided doses SURGICAL HISTORY: Includes a cholecystectomy. She has had a hysterectomy in the past and had a pacemaker placed about 5-1/2 years ago. MEDICAL HISTORY: Is significant for a sick sinus syndrome, atrial fibrillation. She has a pacemaker. Also, has some mitral valve disease. History of diabetes mellitus, hypertension, and hyperlipidemia, chronic back pain. PSYCHIATRIC HISTORY: As indicated above. Has a history of obsessive-compulsive disorder, intellectual disability. Sees Dr. Rosas at the outpatient clinic, who apparently last saw her a couple months ago. MENTAL STATUS EXAMINATION: She is lying in bed. Has various tubes hooked up to her for a dialysis-like procedure. She is cooperative and answers questions briefly, logically, coherently. Affect is restricted in range. She is coherent. Does not appear to be delirious. Can maintain attention. Does not appear drowsy at present. Is alert. She is oriented to place and person. Unclear if she is fully oriented to time. Judgment is fair to good. Insight is fair. Does not appear to be internally preoccupied. ASSESSMENT: 1. Obsessive-compulsive disorder by history. 2. Intellectual disability. 3. Status post fall, left flank hematoma. She is alert. She is coherent, and she is oriented to place and person. Not quite sure as to time. She indicates, when we discussed this, that she would wish for her sister, Kari Haro, to make decisions for her care if she herself appears unable to do so should her condition deteriorate. She was approached about this question on a couple of occasions during the course of our interview, and she indicated as much. Given the above, the patient displays the capacity to designate her healthcare proxy, in this case, her sister. Thank you for the consult. If you have any questions, please call. HIMANSHU
[2016-11-08] MEDS: CALCIUM GLUCONATE 1,000 MG in D5W MINI-BAG PLUS 100 ML IV SCH ×2 (10:55→12:14)
[2016-11-08] MEDS ORDERED: D5W/0.9% SODIUM CHLORIDE 1,000 ML IV SCH (11:00)
[2016-11-08 11:17] LABS: MEAN CORPUSCULAR HEMOGLOBIN 29.3 pg (27.0-33.0); MEAN CORPUSCULAR HGB CONC 33.9 g/dl (32.0-36.5); MEAN CORPUSCULAR VOLUME 86.4 fl (80.0-96.0); RED CELL DISTRIBUTION WIDTH 14.8 % (11.5-14.5); WHITE BLOOD COUNT 13.5 K/mm3 (4.0-10.0)
[2016-11-08 11:37] LABS: CALCIUM LEVEL 6.4 MG/DL (8.8-10.2); CREATININE FOR GFR 1.07 MG/DL (0.55-1.02); GLOMERULAR FILTRATION RATE 54.3 (>45); MAGNESIUM LEVEL 1.8 MG/DL (1.8-2.4); PHOSPHORUS LEVEL 2.6 MG/DL (2.5-4.9); POTASSIUM SERUM 4.4 MEQ/L (3.5-5.1)
[2016-11-08] MEDS: SANTYL OINT 30GM TOP SCH (12:14)
--- NOTE | 2016-11-08 12:33 | REP ---
LEFT UPPER QUADRANT ULTRASOUND Real-time sonographic evaluation of the left upper quadrant performed. The spleen could not be visualized. Extensive hematoma is again seen in the superficial soft tissues of the left flank. IMPRESSION: Left flank hematoma. The spleen could not be visualized sonographically. Signed by Ion Mojica MD 11/08/2016 07:46 P
--- NOTE | 2016-11-08 14:35 | CCN ---
DATE OF SERVICE: 11/08/2016 SUBJECTIVE: Carisa Gongora was seen and examined at the bedside today morning in the intensive care unit (ICU). She was started on continuous venovenous hemodiafiltration (CVVHDF) yesterday in the afternoon. She is tolerating the CVVHDF at this moment. Last 24 hour events were noted. The patient is still anemic. She is going to get 2 more units of packed red blood cells transfusion now. The patient's requirement of Levophed has decreased to 15 mcg at this moment. Her central venous pressure (CVP) is still low. I gave the patient one more bolus of normal saline. I evaluated the patient's overnight continuous venovenous hemodialysis (CVVHD) chart. She is 3.5 liters positive so far, and we are not removing any fluid with the CVVHD at this time because of shock. The patient is still awake. She is able to communicate. She is just on nasal cannula at this time. REVIEW OF SYSTEMS: The patient reports that she is feeling very cold. She is thirsty, complaining of dry tongue. She denies any chest pain or shortness of breath at this time, but she reports a pain in the left shoulder, left-sided abdomen, and left chest because of trauma. No other reliable review of systems from this patient, who has history of slow mentation, and she has trauma and critically ill at this time. OBJECTIVE: VITAL SIGNS: Temperature is 97.2 degrees Fahrenheit, blood pressure is 114/53, pulse is 65, respiratory rate of 18, saturating 97% on nasal cannula at 2 liters. INTAKE AND OUTPUT: According to last night's CVVHDF, she is 3.5 liters positive. The patient only made 64 mL of urine overnight. Weight on the bed scale is 81.5 kg. PHYSICAL EXAMINATION: GENERAL: The patient is awake, alert, oriented times one, laying in bed. She is critically sick. HEAD AND NECK EXAMINATION: Extraocular muscles intact. Pupils equally round and reactive to light. Mucous membranes are very dry. Neck is supple. The patient has a right internal jugular (vein) (IJ) temporary hemodialysis catheter, and she has a right subclavian triple-lumen catheter. CARDIOVASCULAR: S1, S2, irregularly irregular heart rate. No murmur, rub, and gallop. RESPIRATORY: Chest is clear to auscultation bilaterally. Bilateral equal air entry. No rales or rhonchi. ABDOMEN: Soft, distended, with a lot of abdominal wall edema and large ecchymosis on the left side of the abdomen. GENITOURINARY: The patient has an indwelling Andre catheter at this time, a very small amount of urine in the bag at this time. EXTREMITIES: The patient has a large ecchymosis on the left shoulder, and she has 1+ edema of the bilateral lower extremities. Pulses are 2+. CENTRAL NERVOUS SYSTEM (HAY FARMER): No focal deficits at this time. The patient is still awake despite being critically ill. She is able to follow some commands. SKIN: Multiple ecchymosis on the skin. Otherwise, no rashes. PSYCHIATRIC: The patient has history of mental retardation. LABORATORY REVIEW: CBC showed a WBC 13.5, hemoglobin is 6.5, hematocrit is 18.3, platelets of 79. BMP this morning showed sodium 140, potassium 4.4, chloride 109, bicarbonate 24, BUN is 19, creatinine is 1.07, calcium 6.4, ionized calcium is 4, phosphorus is 2.6, magnesium is 1.8. MICROBIOLOGY: Blood cultures are negative so far. Urine culture is pending. IMAGING: An ultrasound of the abdomen was done. Official report is pending, but while the ultrasound was being done, I looked at the imaging. We could not evaluate the spleen because of left-sided hematoma and left abdominal wall edema. CURRENT INPATIENT MEDICATIONS: Current inpatient medications were all reviewed by me. The patient is going to get calcium gluconate 1 gram intravenous (IV) times two doses because of hypocalcemia. Electrolytes are being repleted according to protocol. The patient was given another 1 liter normal saline bolus because of low CVP. She is also on Zosyn and vancomycin. I am going to adjust the dose according to CVVHD. She continues to be on Levophed, however, the dose is down to 15 mcg. ASSESSMENT: A 66-year-old female with past medical history of mental retardation, hypertension, atrial fibrillation on anticoagulation, diabetes mellitus type 2, admitted to ICU because of hemorrhagic shock after a fall, along with acute oliguric renal failure and shock liver and multiple electrolyte abnormalities. PLAN: 1. Central nervous system. The patient has history of mental retardation. She was seen by psychiatry. She has the capacity to appoint a healthcare proxy, and she appointed her sister. Otherwise, no acute HAY FARMER issues at this time. 2. Cardiovascular. The patient is in hemorrhagic shock. Her CVP was still low this morning. I gave her another bolus of normal saline 1 liter. Her Levophed requirement is coming down. Try to maintain a mean arterial pressure (MAP) of about 65. Continue IV fluids at this time. Continue IV fluid boluses as needed to maintain a CVP above 8. 3. Respiratory. The patient is just on nasal cannula. No apparent respiratory distress at this time. 4. Gastrointestinal (GI). The patient had a CAT scan of her abdomen and pelvis on admission, which did not show any intraabdominal bleed. The patient is nothing by mouth at this time. The patient also has a shock liver. Latest liver function test showed her total bilirubin is normal. AST is improved. ALT is still high. Albumin is low because the patient is nothing by mouth at this time. 5. Renal. The patient is in acute oliguric renal failure because of shock and hypotension, requiring pressors. The patient was started on CVVHDF yesterday. Last 24-hour events noted. CVVHDF log sheet was reviewed. Orders were discussed with the registered nurse (RN). I have changed the CVVHD orders today according to the patient's electrolytes. The rest of the electrolytes are being repleted as per CVVHDF protocol. 6. Hematological/oncological. The patient is in hemorrhagic shock. She still continues to have subcutaneous bleeding. Hemoglobin is still down. The patient is going to get 2 more units of packed red blood cells transfusion, 2 units of fresh frozen plasma (FFP), and 1 unit of platelets. Because of multiple transfusions, she is becoming hypocalcemic, so calcium is being repleted, as well. 7. Endocrine. The patient has a history of diabetes mellitus type 2. However, she is nothing by mouth. Continue insulin sliding scale. Hold metformin because of acute renal failure. 8. Electrolytes. The patient had hyperkalemia on admission. Potassium is improved to 4.4. Continue the current CVVHD regimen at this time. 9. Hypocalcemia. It is secondary to bleeding and multiple transfusions. I have ordered 2 grams of calcium IV infusion, and then she would get serial ionized calcium checked every 6 hours, and we shall replete it according to CVVHDF protocol. 10. Metabolic acidosis. Metabolic acidosis is getting significantly better with CVVHDF. Bicarbonate is 24 at this time. It is secondary to shock and acute renal failure. 11. Musculoskeletal. The patient has a trauma. She has a large left shoulder hematoma and left flank hematoma. Continue to transfuse as needed. The rest of the management is as per surgical team. 12. Hypothermia. Temperature is 97.2. Continue the Joel Hugger at this time. 13. Social issues. The patient was seen by psychiatry. She has appointed her sister as healthcare proxy. The plan of care was discussed with the patients RN at the bedside. New CVVHDF orders were written. The patient was discussed with the hospitalist, Dr. Adolfo Ricci. I spent more than 45 minutes in coordinating the care of this patient in the ICU.
[2016-11-08 17:23] LABS: IONIZED CALCIUM 4.4 MG/DL (4.5-5.3)
[2016-11-08 17:26] LABS: MEAN CORPUSCULAR HEMOGLOBIN 30.6 pg (27.0-33.0); MEAN CORPUSCULAR HGB CONC 35.1 g/dl (32.0-36.5); MEAN CORPUSCULAR VOLUME 87.1 fl (80.0-96.0); RED CELL DISTRIBUTION WIDTH 14.5 % (11.5-14.5); WHITE BLOOD COUNT 13.2 K/mm3 (4.0-10.0)
[2016-11-08] MEDS ORDERED: CALCIUM GLUCONATE 1,000 MG in D5W MINI-BAG PLUS 100 ML IV ONE ×2 (17:45→23:30)
[2016-11-08 17:48] LABS: ANION GAP 5 MEQ/L (8-16); BLOOD UREA NITROGEN 14 MG/DL (7-18); CALCIUM LEVEL 7.1 MG/DL (8.8-10.2); CARBON DIOXIDE LEVEL 27 MEQ/L (21-32); CHLORIDE LEVEL 104 MEQ/L (98-107); CREATININE FOR GFR 0.85 MG/DL (0.55-1.02); GLOMERULAR FILTRATION RATE > 60.0 (>45); GLUCOSE, FASTING 124 MG/DL (80-110); MAGNESIUM LEVEL 1.9 MG/DL (1.8-2.4); PHOSPHORUS LEVEL 2.1 MG/DL (2.5-4.9); POTASSIUM SERUM 4.3 MEQ/L (3.5-5.1); SODIUM LEVEL 136 MEQ/L (136-145)
[2016-11-08] MEDS ORDERED: SODIUM PHOSPHATE INJ 30 MMOL in D5W 500 ML IV ONE (19:00)
[2016-11-08] MEDS: VANCOMYCIN HCL 1,000 MG, VIAL MATE ADAPTER 1 EACH in D5W 250 ML IV SCH (19:56)
[2016-11-08 23:08] LABS: IONIZED CALCIUM 4.3 MG/DL (4.5-5.3)
[2016-11-08 23:10] LABS: MEAN CORPUSCULAR HEMOGLOBIN 30.1 pg (27.0-33.0); MEAN CORPUSCULAR HGB CONC 34.7 g/dl (32.0-36.5); MEAN CORPUSCULAR VOLUME 86.8 fl (80.0-96.0); RED CELL DISTRIBUTION WIDTH 14.7 % (11.5-14.5); WHITE BLOOD COUNT 12.9 K/mm3 (4.0-10.0)
[2016-11-08 23:26] LABS: ANION GAP 6 MEQ/L (8-16); BLOOD UREA NITROGEN 10 MG/DL (7-18); CALCIUM LEVEL 7.2 MG/DL (8.8-10.2); CARBON DIOXIDE LEVEL 27 MEQ/L (21-32); CHLORIDE LEVEL 106 MEQ/L (98-107); GLOMERULAR FILTRATION RATE > 60.0 (>45); GLUCOSE, FASTING 120 MG/DL (80-110); MAGNESIUM LEVEL 1.9 MG/DL (1.8-2.4); PHOSPHORUS LEVEL 3.5 MG/DL (2.5-4.9); POTASSIUM SERUM 4.3 MEQ/L (3.5-5.1); SODIUM LEVEL 139 MEQ/L (136-145)
[2016-11-09] VITALS (51 sets, daily range): BP systolic 104–156; BP diastolic 54–79; O2SAT 92–94
[2016-11-09] MEDS ORDERED: CALCIUM GLUCONATE 1,000 MG in D5W MINI-BAG PLUS 100 ML IV ONE ×4 (00:30→20:15)
[2016-11-09] MEDS: IPRATROPIUM 0.5MG/ALBUTEROL 2.5MG INH SOL UD 3ML (DUONEB)(J7620) NEB PRN ×3 (03:48→15:55)
[2016-11-09] MEDS: PIPERACILLIN/TAZOBACTAM SOD 3.375 GM in D5W MINI-BAG PLUS 50 ML IV SCH ×4 (04:12→21:31)
[2016-11-09 05:16] LABS: DIFF SLIDE NUMBER 52; MEAN CORPUSCULAR HEMOGLOBIN 30.2 pg (27.0-33.0); MEAN CORPUSCULAR HGB CONC 34.6 g/dl (32.0-36.5); MEAN CORPUSCULAR VOLUME 87.2 fl (80.0-96.0); RED CELL DISTRIBUTION WIDTH 14.4 % (11.5-14.5); WHITE BLOOD COUNT 13.2 K/mm3 (4.0-10.0)
[2016-11-09 05:22] LABS: PLATELET COUNT, AUTOMATED 61 k/mm3 (150-450)
[2016-11-09 05:34] LABS: ALKALINE PHOSPHATASE 51 U/L (45-117); ALT/SGPT 837 U/L (12-78); ANION GAP 5 MEQ/L (8-16); AST/SGOT 657 U/L (15-37); BLOOD UREA NITROGEN 8 MG/DL (7-18); CALCIUM LEVEL 7.3 MG/DL (8.8-10.2); CARBON DIOXIDE LEVEL 29 MEQ/L (21-32); CHLORIDE LEVEL 102 MEQ/L (98-107); CREATININE FOR GFR 0.61 MG/DL (0.55-1.02); GLOMERULAR FILTRATION RATE > 60.0 (>45); GLUCOSE, FASTING 167 MG/DL (80-110); MAGNESIUM LEVEL 1.7 MG/DL (1.8-2.4); SODIUM LEVEL 136 MEQ/L (136-145)
[2016-11-09] MEDS: HumaLOG INSULIN (NovoLOG) PER UNIT SC SCH ×4 (06:00→17:51)
[2016-11-09 06:11] LABS: ALBUMIN/GLOBULIN RATIO 1.28 (1.00-1.93)
[2016-11-09 06:13] LABS: ALBUMIN 2.3 GM/DL (3.2-5.2); PHOSPHORUS LEVEL 2.7 MG/DL (2.5-4.9)
[2016-11-09 06:14] LABS: TOTAL PROTEIN 4.1 GM/DL (6.4-8.2)
[2016-11-09 06:14] LABS: ABG BASE EXCESS 1.8 (-2.0-2.0); ABG HCO3 26.4 MEQ/L (22.0-26.0); ABG PARTIAL PRESSURE CO2 41.1 mmHg (35.0-45.0); ABG PARTIAL PRESSURE O2 59.8 mmHg (75.0-100.0); ABG TOTAL CO2 27.6 MEQ/L (23.0-31.0); ABG pH (ARTERIAL) 7.425 UNITS (7.350-7.450)
[2016-11-09 06:18] LABS: NUCLEATED RED BLOOD CELL 1 % (0-0)
[2016-11-09 06:19] LABS: TOXIC VACUOLATION 1+
--- NOTE | 2016-11-09 06:28 | REP ---
Clinical: Shortness of breath. Comparison: 11/07/2016. Findings: Moderate to significant perihilar and lower lobe opacities in a "batwing" distribution most compatible with pulmonary vascular congestion and CHF. The mediastinum and cardiac silhouette are stable and mild cardiomegaly cannot be excluded. A double-lumen dialysis catheter is identified with tip in the SVC. Pacemaker remains stable. Cannot exclude layering effusions. No pneumothorax. Skeletal structures unchanged. Impression: Findings most compatible with pulmonary vascular congestion and CHF. Layering effusions cannot be excluded. Signed by Benito Riggins MD 11/09/2016 06:19 A
[2016-11-09] MEDS ORDERED: MAG SULF 1GM/100ML (MAG RUN) 1 GM in APPROPRIATE DILUENT 1 EA IV ONE ×2 (06:30→12:00)
--- NOTE | 2016-11-09 07:54 | IPNPDOC ---
Subjective Date Seen The patient was seen on 11/09/16. Subjective Chief Complaint/HPI The patient is a 66-year-old female admitted with a reason for visit of Clavicular Fracture, Hematoma. General: Denies: ROS Unobtainable, Chills, Night Sweats, Fatigue, Malaise, Normal Appetite, Other Symptoms Constitutional: Reports: Chills, Denies: Fever, Malaise, Night Sweats, Weakness, Fatigue, Weight Loss, Lethargy, Other Eyes: Denies: Pain, Vision change, Conjunctivae inflammation, Eyelid inflammation, Redness, Other ENT: Denies: Head Aches, Ear Pain, Dysphagia, Sinus Congestion, Post Nasal Drip , Sore Throat, Epistaxis, Other Symptoms Skin: Denies: Rash, Lesions, Jaundice, Bruising, Itching, Dry, Breakdown, Nail Changes, Other Pulmonary: Reports: Dyspnea, Denies: Cough, Pleuritic Chest Pain, Other Symptoms Cardiovascular: Denies: Chest Pain, Palpitations, Orthopnea, Paroxysmal Noc. Dyspnea, Edema, Lt Headedness, Other Symptoms Gastrointestinal: Denies: Nausea, Vomiting, Abdominal Pain, Diarrhea, Constipation, Melena, Hematochezia, Other Symptoms Genitourinary: Denies: Dysuria, Frequency, Incontinence, Hematuria, Retention, Other Symptoms Musculoskeletal: Reports: Leg Pain (bilateral leg pain) Objective Physical Examination General Exam: Positive: Alert, Cooperative, No Acute Distress Eye Exam: Positive: PERRLA Chest Exam: Positive: Rales, Other (PPM noted in left infraclavicular fossa, some swelling around left clavicle) Heart Exam: Positive: Rate Normal Telemetry: Positive: Other Telemetry: (paced ) Abdomen Exam: Positive: Normal bowel sounds, Soft, Tenderness, Other (obese) Extremity Exam: Positive: Tenderness, Other (large left flank/hip hematoma today extending to left shoulder) Psych Exam: Positive: Oriented x 3 (oriented to person place and time today) Assessment /Plan Problems (1) Acute respiratory failure with hypoxia Status: Acute Discussed With: Patient Problem Specific Plan: Monitor Clinically, Repeat Tests Problem Text: Likely secondary to fluid overload - decompensated CHF. IV fluids discontinued. Still receiving CVVHD - will discuss further with nephrology. 2D echo pending - previous from showed diastolic heart failure. (2) Hemorrhagic shock Status: Resolved Response to Treatment: Improving Discussed With: Patient Problem Specific Plan: Monitor Clinically, Repeat Labs, Repeat Tests Problem Text: Secondary to large left flank/hip hematoma - transfuse to keep Hg >8. Complicated with afib on NOAC (Eliquis). Today is day #3 off Eliquis. S/P 3 units FFP. Off pressors, blood pressures WNL. Leukocytosis - currently day #3 Zosyn/Vanco - no clear infectious source. MRSA screen pending. Possibly reactive. (3) Shock liver Status: Acute Response to Treatment: Improving Discussed With: Patient Problem Specific Plan: Repeat Labs Problem Text: Continues to improve, likely secondary to #1 hemorrhagic shock. Hepatitis panel unremarkable. Liver ultrasound unremarkable. (4) ARABELLA (acute kidney injury) Status: Resolved Discussed With: Supervisor Uranium Processing, Patient Problem Specific Plan: Consult Specialist, Repeat Labs Problem Text: Still receiving CVVHDF. Will discuss with nephrology regarding addressing fluid overload, assistance appreciated. (5) Acute blood loss anemia Status: Resolved Response to Treatment: Improving, Progressing Discussed With: Patient Problem Specific Plan: Monitor Clinically, Repeat Labs Problem Text: Secondary to hemorrhage/hematoma from fall. Appears to be stable. S/P 10 units PRBC. As above, transfuse to keep Hgb > 8. (6) Diabetes Status: Chronic Discussed With: Patient Problem Specific Plan: Repeat Labs (7) Afib Status: Chronic Problem Specific Plan: Monitor Clinically Problem Text: Rate controlled. Was anti-coagulated with NOAC. Discontinued secondary to hemorrhagic shock. (8) Presence of permanent cardiac pacemaker Status: Chronic Problem Specific Plan: Monitor Clinically Problem Text: Paced rhythm. Reason for PPM not clear, possibly SSS. Abnormal spikes noted on monitoring analyst- cardiology consultation pending for further evaluation. (9) Mental retardation Status: Chronic (10) HTN (hypertension) (11) Dyslipidemia (12) Fall (on) (from) other stairs and steps, initial encounter Status: Acute Discussed With: Patient Problem Specific Plan: Consult Specialist Problem Text: Appears to have been mechanical fall as per patient recollection , however she is questionable historian. Left clavicular fracture noted on imaging, ortho consultation pending. Plan/VTE VTE Prophylaxis Ordered?: Yes Plan/Urinary Catheter Reason for insertion/continuin: Critical Pt monitoring Plan IVF: Discontinue Diet: Continue Current Activity: Bedrest Diagnostics: Check Labs, Obtain Cultures, Xrays, Ultrasound Anticipated Discharge: Home Advance Directives: [facility] VS[facility]O Vital Signs Date Time Temp Pulse Resp B/P (MAP) Pulse Ox O2 Delivery O2 Flow Rate FiO2 11/09/16 05:34 92 Venturi Mask 15.0 50 11/09/16 05:15 74 121/56 (77) 11/09/16 05:00 24 11/09/16 04:00 98.2 I&O- Last 24 Hours up to 6 AM 11/09/16 06:00 Intake Total 4947 ml Output Total 494 ml Balance 4453 ml Laboratory Data 24H LABS Laboratory Tests 2 11/08/16 10:46: Anion Gap 7L, Glomerular Filtration Rate 54.3, Blood Urea Nitrogen 19H, Creatinine 1.07H, Sodium Level 140#, Potassium Level 4.4, Chloride Level 109H, Carbon Dioxide Level 24, Calcium Level 6.4L, Whole Blood Ionized Calcium 4.0L, Phosphorus Level 2.6, Magnesium Level 1.8 11/08/16 11:32: Activated Partial Thromboplast Time 29.7 11/08/16 11:43: Bedside Glucose (Misc Panel) 84 11/08/16 17:06: Anion Gap 5L, Glomerular Filtration Rate > 60.0, Blood Urea Nitrogen 14, Creatinine 0.85, Sodium Level 136, Potassium Level 4.3, Chloride Level 104, Carbon Dioxide Level 27, Calcium Level 7.1L, Whole Blood Ionized Calcium 4.4L, Phosphorus Level 2.1L, Magnesium Level 1.9 11/08/16 17:43: Bedside Glucose (Misc Panel) 122H 11/08/16 22:51: Anion Gap 6L, Glomerular Filtration Rate > 60.0, Blood Urea Nitrogen 10, Creatinine 0.70, Sodium Level 139, Potassium Level 4.3, Chloride Level 106, Carbon Dioxide Level 27, Calcium Level 7.2L, Whole Blood Ionized Calcium 4.3L, Phosphorus Level 3.5#, Magnesium Level 1.9 11/08/16 22:59: Activated Partial Thromboplast Time 30.0 11/09/16 04:53: Anion Gap 5L, Glomerular Filtration Rate > 60.0, Blood Urea Nitrogen 8, Creatinine 0.61, Sodium Level 136, Potassium Level 4.0, Chloride Level 102, Carbon Dioxide Level 29, Calcium Level 7.3L, Whole Blood Ionized Calcium 4.4L, Phosphorus Level 2.7#, Magnesium Level 1.7L, Neutrophils 90H, Lymphocytes ( Manual) 5L, Monocytes (Manual) 5, Nucleated Red Blood Cells 1H, Toxic Vacuolation 1+, Platelet Estimate DECREASED, Aspartate Amino Transf (AST/SGOT) 657H, Alanine Aminotransferase (ALT/SGPT) 837H, Alkaline Phosphatase 51, Total Bilirubin 1.0#, Total Protein 4.1#L, Albumin 2.3#L, Albumin/Globulin Ratio 1.28 11/09/16 05:52: Blood Gas Bicarbonate Standard 26.0, Arterial Blood pH 7.425, Arterial Blood Partial Pressure CO2 41.1, Arterial Blood Partial Pressure O2 59.8L, Arterial Blood Total CO2 27.6, Arterial Blood HCO3 26.4H, Arterial Blood Base Excess 1.8 , Arterial Blood Oxygen Saturation 91.8L, Arterial Blood Gas Puncture Site LT RADIAL CBC/BMP Laboratory Tests 11/08/16 10:46 Red Blood Count 2.12 L, Mean Corpuscular Volume 86.4, Mean Corpuscular Hemoglobin 29.3, Mean Corpuscular Hemoglobin Concent 33.9, Red Cell Distribution Width 14.8 H, Calcium Level 6.4 L 11/08/16 17:06 Red Blood Count 2.70 L, Mean Corpuscular Volume 87.1, Mean Corpuscular Hemoglobin 30.6, Mean Corpuscular Hemoglobin Concent 35.1, Red Cell Distribution Width 14.5, Calcium Level 7.1 L 11/08/16 22:51 Red Blood Count 2.61 L, Mean Corpuscular Volume 86.8, Mean Corpuscular Hemoglobin 30.1, Mean Corpuscular Hemoglobin Concent 34.7, Red Cell Distribution Width 14.7 H, Calcium Level 7.2 L 11/09/16 04:53 Red Blood Count 3.15 L, Mean Corpuscular Volume 87.2, Mean Corpuscular Hemoglobin 30.2, Mean Corpuscular Hemoglobin Concent 34.6, Red Cell Distribution Width 14.4, Calcium Level 7.3 L, Phosphorus Level 2.7 #, Aspartate Amino Transf (AST/SGOT) 657 H, Alanine Aminotransferase (ALT/SGPT) 837 H, Alkaline Phosphatase 51, Total Bilirubin 1.0 #, Total Protein 4.1 #L, Albumin 2.3 #L Microbiology Microbiology 6/13/17 Blood Culture - Preliminary, Resulted No growth after 24 hours . All specim... 11/07/16 Blood Culture - Preliminary, Resulted No growth after 24 hours . All specim... 11/07/16 Urine Culture, Received Pending RUBI CARTY MD Nov 09, 2016 07:54
[2016-11-09] MEDS: ACETAMINOPHEN TAB 650MG DOSE (2X325MG) PO PRN (07:55)
[2016-11-09] MEDS: DOCUSATE SODIUM 100 MG CAP PO SCH ×2 (09:39→21:30)
[2016-11-09] MEDS: SANTYL OINT 30GM TOP SCH (09:45)
--- NOTE | 2016-11-09 10:42 | REP ---
Bilateral lower extremity Duplex Doppler venous ultrasound: Real time compression and duplex Doppler interrogation of the bilateral lower extremity deep venous system is performed. Bilaterally, the common femoral, superficial femoral and popliteal veins are fully compressible with transducer pressure and demonstrate normal spontaneous and phasic flow, without evidence of deep venous thrombosis. Impression: No evidence of deep venous thrombosis of the bilateral lower extremity femoral popliteal venous system. A left popliteal cyst is seen measuring 2.0 x 0.7 x 1.1 cm. Signed by Ion Mojica MD 11/09/2016 10:33 A
[2016-11-09 11:10] LABS: IONIZED CALCIUM 4.6 MG/DL (4.5-5.3)
[2016-11-09 11:16] LABS: MEAN CORPUSCULAR HEMOGLOBIN 30.8 pg (27.0-33.0); MEAN CORPUSCULAR HGB CONC 35.5 g/dl (32.0-36.5); MEAN CORPUSCULAR VOLUME 86.8 fl (80.0-96.0); RED CELL DISTRIBUTION WIDTH 14.3 % (11.5-14.5); WHITE BLOOD COUNT 15.6 K/mm3 (4.0-10.0)
[2016-11-09 11:36] LABS: ANION GAP 6 MEQ/L (8-16); BLOOD UREA NITROGEN 8 MG/DL (7-18); CALCIUM LEVEL 7.6 MG/DL (8.8-10.2); CARBON DIOXIDE LEVEL 29 MEQ/L (21-32); CHLORIDE LEVEL 101 MEQ/L (98-107); CREATININE FOR GFR 0.53 MG/DL (0.55-1.02); GLOMERULAR FILTRATION RATE > 60.0 (>45); GLUCOSE, FASTING 176 MG/DL (80-110); PHOSPHORUS LEVEL 2.3 MG/DL (2.5-4.9); SODIUM LEVEL 136 MEQ/L (136-145)
[2016-11-09 12:55] LABS: INR 1.35
[2016-11-09] MEDS ORDERED: POTASSIUM PHOSPHATE INJ 15 MMOL in D5W 250 ML IV ONE (14:00)
[2016-11-09 19:09] LABS: IONIZED CALCIUM 4.4 MG/DL (4.5-5.3)
--- NOTE | 2016-11-09 19:26 | CCN ---
DATE OF SERVICE: 11/09/2016 SUBJECTIVE: The patient was seen and examined at the bedside today morning in the intensive care unit (ICU). Last 24 hour events were noted. I was called in the last 24 hours for serial laboratories every 6 hours during continuous venovenous hemodiafiltration (CVVHDF). The patient is currently off of pressors, and she is hemodynamically stable. The patient became short of breath this morning. Intravenous (IV) fluids were stopped, and we started removing fluid at 50 mL an hour. The patient's urine output is slightly improving as compared with yesterday. Her hemoglobin is staying stable at 9.5. The patient is currently awake and follows commands, and she is able to tolerate the liquid diet. Looking at the patient's CVVHDF chart, since the time we started the continuous venovenous hemodialysis (CVVHD), the patient is 8.5 liters positive because of aggressive hydration. Her weight is 85.3 kg today, which is almost 4 kg positive since yesterday. The patient is currently on VentiMask because of fluid overload and shortness of breath. REVIEW OF SYSTEMS: The patient is laying in the bed, getting CVVHDF done, wearing a Joel Hugger, complaining of feeling very cold. She is still critically ill. She is not able to communicate very well. The patient reports pain in the left side of the shoulder, left chest, and left flank. She has a history of slow mentation, and she is not able to provide any reliable review of systems. OBJECTIVE: VITAL SIGNS: Temperature is 97.9 degrees Fahrenheit, blood pressure is 133/64, pulse is 69, respiratory rate of 18, saturating 92% on VentiMask at 50% FiO2. INTAKE AND OUTPUT: Urine output recorded is 331 mL yesterday and 394 mL today. Weight in the bed scale is 85.3 kg, and the patient is 8700 mL positive since the time CVVHDF was started. PHYSICAL EXAMINATION: GENERAL: The patient is awake, alert, oriented times one, laying in bed, wearing a Joel Hugger and having chills at this time. HEAD AND NECK EXAMINATION: Extraocular muscles intact. Pupils equally round and reactive to light. Mucous membranes are moist. Neck is supple. The dressings on the right internal jugular (vein) (IJ) hemodialysis catheter and right subclavian triple-lumen catheter was dirty and blood-soaked. The dressings were removed. The area was cleaned, and new dressings were done. CARDIOVASCULAR: S1, S2, irregularly irregular heart rate. No murmur, rub, and gallop. RESPIRATORY: Decreased breath sounds with mild crepitations and mild expiratory rhonchi bilaterally. The patient is currently on a VentiMask. ABDOMEN: Soft, distended, with a lot of abdominal wall edema on the left side and large ecchymosis on the left flank region, as well, going all the way up to left hip. GENITOURINARY: The patient has an indwelling Andre catheter, and her urine output is slowly improving. EXTREMITIES: The patient has a large ecchymosis on the left shoulder. She has 1+ pitting edema of the bilateral lower extremities and bilateral upper extremities. Pulses are otherwise 2+. CENTRAL NERVOUS SYSTEM (TUMBLERS SUPERVISOR): There is no focal deficit at this time. The patient has slow mentation. She is critically ill, but she is able to follow some commands. SKIN: Multiple ecchymosis and bruises on the left side of the abdomen, left hip, left shoulder. Otherwise, no rashes. PSYCHIATRIC: The patient has history of mental retardation. LABORATORY REVIEW: CBC showed a WBC 15.6, hemoglobin 9.5, platelets of 71. INR is 1.35, PTT is 29.1. BMP showed sodium 136, potassium 4, chloride 101, bicarbonate 29, BUN is 8, creatinine is 0.5, glucose is 176, calcium is 7.6, ionized calcium is 4.6, phosphorus is 2.3, magnesium is 2. MICROBIOLOGY: Blood cultures are negative after 48 hours. IMAGING: Chest x-ray done today morning showed a pulmonary vascular congestion and congestive heart failure (CHF), and Doppler of the bilateral lower extremities showed no evidence of deep venous thrombosis (DVT); however, there was left popliteal cyst, which was 2 cm. CURRENT INPATIENT MEDICATIONS: The patient's medications were all reviewed by me. She is getting electrolytes repleted according to CVVHD protocol. Levophed is on hold. She continues to be on Zosyn and vancomycin according to CVVHDF dosing. There is no other change in the medications today as compared with yesterday. ASSESSMENT: A 66-year-old female with past medical history of mental retardation, hypertension, atrial fibrillation (she was on anticoagulation), also has history of diabetes mellitus type 2, admitted this time to ICU after trauma, falling from stairs, hemorrhagic shock, along with acute oliguric renal failure and shock liver with multiple electrolyte abnormalities. PLAN: 1. Central nervous system. The patient has history of mental retardation, but otherwise she is able to follow commands. She is awake and alert. She was evaluated by psychiatry, as well. She has appointed her healthcare proxy, which is her sister. 2. Cardiovascular. The patient was in hemorrhagic shock. However, she is making improvement. Hemoglobin is staying stable now. She is off of Levophed at this time. The patient has shortness of breath secondary to fluid overload and congestive heart failure. I have stopped the IV fluid today morning. I am going to start the fluid removal according to mean arterial pressure. New fluid removal parameters were written in the CVVHDF orders. 3. Respiratory. The patient is on VentiMask at this time because of hypoxic respiratory failure secondary to fluid overload. I have increased the fluid removal for the CVVHDF which would help improve the fluid overload and shortness of breath. No need of intubation at this time. 4. Gastrointestinal. The patient has a shock liver, which is significantly improving now since the patient is hemodynamically stable. The patient is tolerating a liquid diet at this time. Albumin level is also getting better to 2.3 now. 5. Renal. The patient has acute oliguric renal failure because of hemorrhagic shock and hypotension. Initially, she was requiring pressors. The patient is off of pressors at this time. Urine output is slightly improving as compared with yesterday. However, I would continue the CVVHDF at this time because she is in positive fluid balance. Because of aggressive hydration, I have started to pull fluid from CVVHDF now, as long as the patient's blood pressure stays stable. 6. Hematological/oncological. The patient was in hemorrhagic shock, which is improving. Hemoglobin is stable at 9.2. Continue to monitor complete blood count (CBC) and transfuse as needed for hemoglobin below 8. Platelets are 71. However, thrombocytopenia is slowly improving now. Continue to monitor CBC every 8 hours with the rest of the laboratories. 7. Endocrine. The patient has a history of diabetes mellitus type 2. She is tolerating the liquid diet. Continue insulin sliding scale. Avoid metformin in the setting of acute renal failure. 8. Electrolytes. The patient's hypocalcemia, hypophosphatemia, and hypomagnesemia are being managed according to CVVHDF electrolyte replacement protocol. 9. Metabolic acidosis. The patient's metabolic acidosis has significantly improved with CVVHDF. Continue the current affluent rate of CVVHDF for the next 24 hours, as well. 10. Musculoskeletal. The patient had a trauma after a fall from stairs. She has a large ecchymosis on left shoulder, left flank region, and left hip. However, there is no acute fracture. Continue fluid and blood resuscitation. The rest of the management is as per surgical team. 11. Hypothermia. Continue the Joel Hugger at this time. Part of the hypothermia is secondary to CVVHDF. 12. Infectious disease. Cultures are negative so far. I would empirically continue the antibiotics at this time. Antibiotics will be stopped once the patient comes off of CVVHDF. 13. Intravenous lines. The patient has a right internal jugular non-tunneled temporary hemodialysis catheter and right subclavian triple-lumen catheter. Both the exit sites were dirty and soaked with blood. I removed the old dressings. The area was cleaned with chlorhexidine. New clean dressings were done. Lines were clamped in correct position. The plan of care was discussed with the patient's registered nurse (RN) at the bedside. New CVVHDF orders were written according to the patient's fluid removal parameters and current electrolytes. The plan of care was also discussed with the hospitalist, Dr. Adolfo Ricci. Continue the CVVHDF for the next 24 hours, as well. Total critical time spent in the care of this patient in ICU was 1 hour today.
[2016-11-09 19:43] LABS: MEAN CORPUSCULAR HEMOGLOBIN 30.5 pg (27.0-33.0); MEAN CORPUSCULAR HGB CONC 35.1 g/dl (32.0-36.5); MEAN CORPUSCULAR VOLUME 86.8 fl (80.0-96.0); RED CELL DISTRIBUTION WIDTH 14.8 % (11.5-14.5); WHITE BLOOD COUNT 11.4 K/mm3 (4.0-10.0)
[2016-11-09 19:56] LABS: ANION GAP 5 MEQ/L (8-16); BLOOD UREA NITROGEN 7 MG/DL (7-18); CALCIUM LEVEL 7.4 MG/DL (8.8-10.2); CARBON DIOXIDE LEVEL 29 MEQ/L (21-32); CHLORIDE LEVEL 103 MEQ/L (98-107); CREATININE FOR GFR 0.62 MG/DL (0.55-1.02); GLOMERULAR FILTRATION RATE > 60.0 (>45); GLUCOSE, FASTING 133 MG/DL (80-110); PHOSPHORUS LEVEL 2.2 MG/DL (2.5-4.9); POTASSIUM SERUM 4.1 MEQ/L (3.5-5.1); SODIUM LEVEL 137 MEQ/L (136-145)
[2016-11-09] MEDS ORDERED: SODIUM PHOSPHATE INJ 30 MMOL in NS 250 ML IV ONE (21:00)
[2016-11-09] MEDS: VANCOMYCIN HCL 1,000 MG, VIAL MATE ADAPTER 1 EACH in D5W 250 ML IV SCH (22:40)
[2016-11-09] MEDS ORDERED: VANCOMYCIN HCL 500 MG in D5W MINI-BAG PLUS 100 ML IV ONE (23:00)
--- NOTE | 2016-11-09 23:56 | PHACANCOPD ---
PHARMACY VANCOMYCIN DOSING Pt Demographics Demographics Patient Age:66 , Weight:85.300 , Gender: female Adjusted Body Weight Events Past 24 Hours Events Past 24 Hours: NO: Dialysis, Diuretic Therapy, Change in CrCl, Fever, Elevation in WBC, Pending Diagnostics, Pending Procedures, Other Vancomycin Vancomycin Target Ranges: 15-20 mcg/ml Vancomycin Load Y/N: Yes Load Dose Date Time Vancomycin RE-Load Dose: 1.5 G Date: 11/06/16 Time: 22:00 Vancomycin Dose Date: 11/10/16. Change current Vancomycin Dose: [1GM IV Q12H STARTING @10:00] Intermittent Dosing?: No Labs Labs Laboratory Tests Test 11/09/16 18:53 Vancomycin Level Trough 5.4 UG/ML (10.0-20.0) Laboratory Tests 11/09/16 04:53 Red Blood Count 3.15, Mean Corpuscular Volume 87.2, Mean Corpuscular Hemoglobin 30.2, Mean Corpuscular Hemoglobin Concent 34.6, Red Cell Distribution Width 14.4 , Calcium Level 7.3, Phosphorus Level 2.7 #, Aspartate Amino Transf (AST/SGOT) 657, Alanine Aminotransferase (ALT/SGPT) 837, Alkaline Phosphatase 51, Total Bilirubin 1.0 #, Total Protein 4.1 #, Albumin 2.3 # 11/09/16 10:53 Red Blood Count 3.08, Mean Corpuscular Volume 86.8, Mean Corpuscular Hemoglobin 30.8, Mean Corpuscular Hemoglobin Concent 35.5, Red Cell Distribution Width 14.3 , Calcium Level 7.6 11/09/16 18:53 Red Blood Count 2.92, Mean Corpuscular Volume 86.8, Mean Corpuscular Hemoglobin 30.5, Mean Corpuscular Hemoglobin Concent 35.1, Red Cell Distribution Width 14.8 , Calcium Level 7.4 Micro Microbiology 11/07/16 Blood Culture - Preliminary, Resulted No Growth after 48 hours. All Specime... 11/07/16 Blood Culture - Preliminary, Resulted No Growth after 48 hours. All Specime... 11/07/16 Urine Culture, Received Pending Creatinine Clearance Date:11/09/16. Creatinine Clearance: [>60ml/min]. Assessment and Plan Maintaining Current Dose?: No Reason for dose change: Trough too high Pharmacist Note Pharmacist Note Date: 11/09/16. Pharm.D. note: 66YO FEMALE, 85.3KG in WEIGHT, ADMITTED FOR QUESTIONABLE SEPSIS. ABX TX INCLUDES ZOSYN 3.375GM IV Q6H (21:00) AND VANCO 1GM IV Q24H (20:00). A VANCO TROUGH THIS EVENING 5.4 MCG/ML (GOAL 15-20 mg.ML) WE WILL RELOAD HER WITH 1.5GM VANCO AT 22:00 THIS EVENING AND INCREASE HER VANCO TX TO 1GM IV Q12H STARTING AT 10AM 11/10/16 A VANCO TROUGH WILL BE REORDERED WHEN SHE IS AT [facility] Nov 09, 2016 23:56
[2016-11-10] VITALS (35 sets, daily range): BP systolic 100–185; BP diastolic 56–105
[2016-11-10] MEDS: PIPERACILLIN/TAZOBACTAM SOD 3.375 GM in D5W MINI-BAG PLUS 50 ML IV SCH ×4 (03:00→21:27)
[2016-11-10 03:29] LABS: IONIZED CALCIUM 4.3 MG/DL (4.5-5.3)
[2016-11-10 03:38] LABS: MEAN CORPUSCULAR HGB CONC 34.2 g/dl (32.0-36.5); MEAN CORPUSCULAR VOLUME 87.6 fl (80.0-96.0); RED CELL DISTRIBUTION WIDTH 14.9 % (11.5-14.5); WHITE BLOOD COUNT 10.8 K/mm3 (4.0-10.0)
[2016-11-10 03:42] LABS: ANION GAP 2 MEQ/L (8-16); BLOOD UREA NITROGEN 6 MG/DL (7-18); CALCIUM LEVEL 6.9 MG/DL (8.8-10.2); CARBON DIOXIDE LEVEL 33 MEQ/L (21-32); CHLORIDE LEVEL 103 MEQ/L (98-107); CREATININE FOR GFR 0.49 MG/DL (0.55-1.02); GLOMERULAR FILTRATION RATE > 60.0 (>45); GLUCOSE, FASTING 70 MG/DL (80-110); PHOSPHORUS LEVEL 2.7 MG/DL (2.5-4.9); POTASSIUM SERUM 3.8 MEQ/L (3.5-5.1); SODIUM LEVEL 138 MEQ/L (136-145)
[2016-11-10] MEDS ORDERED: POTASSIUM CHLORIDE IV SCH (04:00)
[2016-11-10] MEDS ORDERED: NS IV SCH (04:00)
[2016-11-10] MEDS ORDERED: CALCIUM GLUCONATE 1,000 MG in NS 100 ML IV SCH (04:00)
[2016-11-10] MEDS ORDERED: KCL 20MEQ IN 100ML SWI (KRUN) 100 ML IV ONE (04:30)
[2016-11-10] MEDS: CALCIUM GLUCONATE 1,000 MG in D5W MINI-BAG PLUS 100 ML IV SCH ×2 (05:18→05:48)
[2016-11-10] MEDS: HumaLOG INSULIN (NovoLOG) PER UNIT SC SCH ×4 (06:00→18:00)
[2016-11-10] MEDS: ACETAMINOPHEN TAB 650MG DOSE (2X325MG) PO PRN (06:36)
[2016-11-10] MEDS: DOCUSATE SODIUM 100 MG CAP PO SCH ×2 (08:15→21:26)
--- NOTE | 2016-11-10 09:19 | REP ---
PORTABLE CHEST: AP portable view of the chest is performed and compared to a prior study of 11/09/2016. Bilateral infiltrates appear stable. The heart is enlarged. Mediastinal silhouette is unchanged. Right central venous catheter is again noted as well as a left dual-lead pacemaker. IMPRESSION: Stable exam. Signed by Ion Mojica MD 11/10/2016 05:17 P
[2016-11-10] MEDS: SANTYL OINT 30GM TOP SCH (09:45)
[2016-11-10] MEDS: VANCOMYCIN HCL 1,000 MG, VIAL MATE ADAPTER 1 EACH in D5W 250 ML IV SCH ×2 (09:46→22:47)
--- NOTE | 2016-11-10 10:04 | IPNPDOC ---
Subjective Date Seen The patient was seen on 11/10/16. Subjective Chief Complaint/HPI The patient is a 66-year-old female admitted with a reason for visit of Clavicular Fracture, Hematoma. General: Denies: ROS Unobtainable, Chills, Night Sweats, Fatigue, Malaise, Normal Appetite, Other Symptoms Constitutional: Denies: Chills, Fever, Malaise, Night Sweats, Weakness, Fatigue , Weight Loss, Lethargy, Other Eyes: Denies: Pain, Vision change, Conjunctivae inflammation, Eyelid inflammation, Redness, Other ENT: Denies: Head Aches, Ear Pain, Dysphagia, Sinus Congestion, Post Nasal Drip , Sore Throat, Epistaxis, Other Symptoms Skin: Denies: Rash, Lesions, Jaundice, Bruising, Itching, Dry, Breakdown, Nail Changes, Other Pulmonary: Denies: Dyspnea, Cough, Pleuritic Chest Pain, Other Symptoms Cardiovascular: Denies: Chest Pain, Palpitations, Orthopnea, Paroxysmal Noc. Dyspnea, Edema, Lt Headedness, Other Symptoms Gastrointestinal: Denies: Nausea, Vomiting, Abdominal Pain, Diarrhea, Constipation, Melena, Hematochezia, Other Symptoms Genitourinary: Denies: Dysuria, Frequency, Incontinence, Hematuria, Retention, Other Symptoms Objective Physical Examination General Exam: Positive: Alert, Cooperative, No Acute Distress Eye Exam: Positive: PERRLA Chest Exam: Positive: Rales, Other (PPM noted in left infraclavicular fossa, some swelling around left clavicle) Heart Exam: Positive: Rate Normal Telemetry: Positive: Other Telemetry: (paced ) Abdomen Exam: Positive: Normal bowel sounds, Soft, Tenderness, Other (obese) Extremity Exam: Positive: Tenderness, Other (large left flank/hip hematoma today extending to left shoulder) Psych Exam: Positive: Oriented x 3 Assessment /Plan Problems (1) Acute respiratory failure with hypoxia Status: Acute Discussed With: Patient Problem Specific Plan: Monitor Clinically, Repeat Tests Problem Text: Likely secondary to fluid overload - decompensated CHF. IV fluids discontinued. Still receiving CVVHD - will discuss further with nephrology. 2D echo pending - previous from showed diastolic heart failure. ABG pending. Repeat CXR stable infiltrates. (2) Hemorrhagic shock Status: Resolved Response to Treatment: Improving Discussed With: Patient Problem Specific Plan: Monitor Clinically, Repeat Labs, Repeat Tests Problem Text: Secondary to large left flank/hip hematoma - transfuse to keep Hg >8. Complicated with afib on NOAC (Eliquis). Today is day #4 off Eliquis. S/P 3 units FFP. Off pressors, blood pressures WNL. Leukocytosis - currently day #4 Zosyn/Vanco - no clear infectious source. MRSA screen pending. Possibly reactive. (3) Shock liver Status: Acute Response to Treatment: Improving Discussed With: Patient Problem Specific Plan: Repeat Labs Problem Text: Continues to improve, likely secondary to #1 hemorrhagic shock. Hepatitis panel unremarkable. Liver ultrasound unremarkable. (4) ARABELLA (acute kidney injury) Status: Resolved Discussed With: Singeing Torch Operator, Patient Problem Specific Plan: Consult Specialist, Repeat Labs Problem Text: Still receiving CVVHDF. Will discuss with nephrology regarding addressing fluid overload, assistance appreciated. (5) Acute blood loss anemia Status: Resolved Response to Treatment: Improving, Progressing Discussed With: Patient Problem Specific Plan: Monitor Clinically, Repeat Labs Problem Text: Secondary to hemorrhage/hematoma from fall. Appears to be stable. S/P 10 units PRBC. As above, transfuse to keep Hgb > 8. (6) Diabetes Status: Chronic Discussed With: Patient Problem Specific Plan: Repeat Labs (7) Afib Status: Chronic Problem Specific Plan: Monitor Clinically Problem Text: Rate controlled. Was anti-coagulated with NOAC. Discontinued secondary to hemorrhagic shock. (8) Presence of permanent cardiac pacemaker Status: Chronic Problem Specific Plan: Monitor Clinically Problem Text: Paced rhythm. Reason for PPM not clear, possibly SSS. Abnormal spikes noted on potline monitor- cardiology consultation pending for further evaluation. (9) Mental retardation Status: Chronic (10) HTN (hypertension) (11) Dyslipidemia (12) Fall (on) (from) other stairs and steps, initial encounter Status: Acute Discussed With: Patient Problem Specific Plan: Consult Specialist Problem Text: Appears to have been mechanical fall as per patient recollection , however she is questionable historian. Left clavicular fracture noted on imaging, ortho consultation pending. Plan/VTE VTE Prophylaxis Ordered?: Yes Plan/Urinary Catheter Reason for insertion/continuin: Critical Pt monitoring Plan IVF: Discontinue Diet: Continue Current Activity: Bedrest Diagnostics: Check Labs, Obtain Cultures, Xrays Anticipated Discharge: Home Advance Directives: HCP VS, I&O, 24H, Fishbone Vital Signs/I&O Vital Signs Date Time Temp Pulse Resp B/P (MAP) Pulse Ox O2 Delivery O2 Flow Rate FiO2 11/10/16 09:55 100 11/10/16 08:00 Non-Rebreather 11/10/16 08:00 98.8 76 24 185/91 (122) 90 11/09/16 05:34 15.0 I&O- Last 24 Hours up to 6 AM 11/10/16 06:00 Intake Total 1935 ml Output Total 361 ml Balance 1574 ml Laboratory Data 24H LABS Laboratory Tests 2 11/09/16 10:53: Anion Gap 6L, Glomerular Filtration Rate > 60.0, Blood Urea Nitrogen 8, Creatinine 0.53L, Sodium Level 136, Potassium Level 4.0, Chloride Level 101, Carbon Dioxide Level 29, Calcium Level 7.6L, Whole Blood Ionized Calcium 4.6, Phosphorus Level 2.3L, Magnesium Level 2.0 11/09/16 12:26: Prothrombin Time 16.8H, Prothromb Time International Ratio 1.35, Activated Partial Thromboplast Time 29.1 11/09/16 17:43: Bedside Glucose (Misc Panel) 161H 11/09/16 18:53: Anion Gap 5L, Glomerular Filtration Rate > 60.0, Blood Urea Nitrogen 7, Creatinine 0.62, Sodium Level 137, Potassium Level 4.1, Chloride Level 103, Carbon Dioxide Level 29, Calcium Level 7.4L, Whole Blood Ionized Calcium 4.4L, Phosphorus Level 2.2L, Magnesium Level 2.0, Vancomycin Level Trough 5.4L 11/09/16 23:51: Bedside Glucose (Misc Panel) 130H 11/10/16 00:06: Activated Partial Thromboplast Time 31.4 11/10/16 03:12: Anion Gap 2L, Glomerular Filtration Rate > 60.0, Blood Urea Nitrogen 6L, Creatinine 0.49L, Sodium Level 138, Potassium Level 3.8, Chloride Level 103, Carbon Dioxide Level 33H, Calcium Level 6.9L, Whole Blood Ionized Calcium 4.3L, Phosphorus Level 2.7#, Magnesium Level 2.0 11/10/16 06:11: Bedside Glucose (Misc Panel) 83 CBC/BMP Laboratory Tests 11/09/16 10:53 Red Blood Count 3.08 L, Mean Corpuscular Volume 86.8, Mean Corpuscular Hemoglobin 30.8, Mean Corpuscular Hemoglobin Concent 35.5, Red Cell Distribution Width 14.3, Calcium Level 7.6 L 11/09/16 18:53 Red Blood Count 2.92 L, Mean Corpuscular Volume 86.8, Mean Corpuscular Hemoglobin 30.5, Mean Corpuscular Hemoglobin Concent 35.1, Red Cell Distribution Width 14.8 H, Calcium Level 7.4 L 11/10/16 03:11 Red Blood Count 2.90 L, Mean Corpuscular Volume 87.6, Mean Corpuscular Hemoglobin 30.0, Mean Corpuscular Hemoglobin Concent 34.2, Red Cell Distribution Width 14.9 H 11/10/16 03:12 Calcium Level 6.9 L Microbiology Microbiology 11/07/16 Blood Culture - Preliminary, Resulted No Growth after 48 hours. All Specime... 11/07/16 Blood Culture - Preliminary, Resulted No Growth after 72 hours. All specime... 11/07/16 Urine Culture - Final, Complete Escherichia Coli RUBI CARTY MD Nov 10, 2016 10:04
--- NOTE | 2016-11-10 10:42 | CR ---
CRITICAL CARE CONSULTATION DATE OF CONSULTATION: 11/10/2016 I was asked to attend Carisa Gongora here in the intensive care unit. The patient has been examined. Chart has been reviewed. I have spoken at length with Dr. Morgan of nephrology and Dr. Ricci of the hospitalist service. In essence, this is a 66-year-old female resident of [facility] ([facility]), known atrial fibrillation, was on Eliquis. She suffered a fall down a flight of stairs and was admitted with significant hematomas. She was markedly hypotensive and required significant volume resuscitation. Over the last 2 days, she has had increasing oxygen requirements; and despite a nonrebreather mask, this morning had saturations in the 80s. She was then put on noninvasive support, and I am asked to assist with that management. ALLERGIES: Listed as none. MEDICATIONS AT HOME: Are: - amiodarone - Eliquis - aspirin - carvedilol - calcium - insulin on sliding scale - lisinopril - loperamide - metformin - oxybutynin - Paxil - risperdal - simvastatin - spironolactone - recent Bactrim PAST MEDICAL HISTORY: Is significant for: 1. Atrial fibrillation and sick sinus syndrome, for which she has a pacemaker. 2. History of mitral valvular disease. 3. Mild mental retardation. 4. Insulin-dependent diabetes mellitus. 5. Hypertension. 6. Hyperlipidemia. FAMILY HISTORY: Noncontributory. SURGICAL HISTORY: 1. Previous cholecystectomy. 2. Hysterectomy. 3. Pacemaker. 4. Appendectomy. 5. Tonsillectomy. SOCIAL HISTORY: No history of smoking. She is a resident of [facility]. REVIEW OF SYSTEMS: Unobtainable due to the patient's status. All details are gleaned from the medical record and conversation with nephrology and hospitalist service. PHYSICAL EXAMINATION: Currently, she is arousable, laying in bed in the intensive care unit. A noninvasive mask in place. Heart rate in the 60s, irregular. Blood pressure currently 180 systolic. Respiratory rate at 24-27 without obvious accessory muscle use. She is afebrile. HEENT: Does show pupils react. Sclerae clear. Trachea is in the midline. Neck with diminished mobility. In general, she has bruising consistent with the recent fall, covering the majority of her left side. Chest does show symmetric expansion. There are moist inspiratory crackles anteriorly, as well as dependently. No rhonchi or rubs. Cardiac examination is distant, is irregular. Peripheral pulses are diminished. There is trace edema. Abdomen, again, shows bruising on the left. There are active bowel sounds. Abdomen is mildly distended. No convincing organomegaly or masses. Extremities show an orthopedic boot on the right lower extremity. Bruising on the left. Neurologically, although she is sedate, she is arousable. Psychiatric examination: Is sedate. Most recent laboratories: Show a blood gas done yesterday on an unknown oxygen flow is a pH of 7.425, PCO2 of 41, pO2 of 59. White blood cell count 10.8, hemoglobin 8.7, platelet count of 62,000. Sodium 138, potassium of 3.8, chloride of 103, CO2 of 33, BUN 6, creatinine 0.49. Chest x-ray shows significant vascular congestion, increased from yesterday. IMPRESSION: 1. Hypoxemia. 2. Pulmonary edema. 3. Atrial fibrillation. 4. Underlying anemia. 5. High risk medications/Eliquis/amiodarone. RECOMMENDATIONS: At this point, she is currently being ultrafiltrated by nephrology. She initially had been placed on a bilevel, but I have changed this to continuous positive airway pressure (CPAP). Currently, oxygen saturation 94% to 96% on a CPAP of 10 and 100% FiO2. She is moving tidal volumes 425-500 mL. At this point, we will continue that level of support. When she is off of the ultrafiltration, will recheck an arterial blood gas, as she has not had a significant metabolic or respiratory acidosis of which we are aware. Overall, she is critically ill. Further recommendations will be made in the progress records as new information becomes available. HIMANSHU
[2016-11-10 15:07] LABS: ABG BASE EXCESS 1.2 (-2.0-2.0); ABG HCO3 25.3 MEQ/L (22.0-26.0); ABG PARTIAL PRESSURE CO2 38.1 mmHg (35.0-45.0); ABG PARTIAL PRESSURE O2 75.8 mmHg (75.0-100.0); ABG TOTAL CO2 26.5 MEQ/L (23.0-31.0)
[2016-11-10 15:08] LABS: ABG STANDARD HCO3 25.5 MEQ/L (22.0-26.0)
[2016-11-10] MEDS ORDERED: hydrALAZINE INJ 20 MG/ML VIAL IV ONE (16:00)
--- NOTE | 2016-11-10 18:03 | IPN ---
DATE: 11/10/2016 SUBJECTIVE: Patient was seen and examined at the bedside today morning in the intensive care unit (ICU). Last 24-hour events were noted. Last 24-hour continuous veno-venous hemodiafiltration (CVVHDF) sheet was also reviewed. We started removing fluid yesterday, but she is only about 400 mL negative so far since yesterday. 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 When I saw the patient today morning, she was in moderate respiratory distress with fluid overload and wheezing. Patient was on Venturi mask at 50% FiO2. She was hypertensive with systolic blood pressure in 180s. Patient is still oliguric at this time. Urine output is hardly 5-10 mL an hour. REVIEW OF SYSTEMS: Patient is lying in the bed. She is moderate respiratory distress, wearing the Venturi mask at this time. Complaining of shortness of breath and wheezing. OBJECTIVE: Vital signs: Temperature is 98.8 degrees Fahrenheit, blood pressure is 185/91, pulse is 75, respiratory rate of 25, saturating 90% on Venturi mask. Intake and output: Last 24-hour intake and output were reviewed. Patient's urine output is 215 mL so far since overnight. CVVHDF sheet was also reviewed, and patient is negative 300 mL fluid balance. Weight in the bed scale is 85.6 kg. It was 85.3 kg yesterday. Patient is almost 10 liter positive since her day of admission. PHYSICAL EXAMINATION: GENERAL: Patient is awake, alert, oriented times one, lying in bed in moderate respiratory distress. Currently wearing a Venturi mask. HEAD AND NECK: Extraocular muscles intact. Pupils equally round and reactive to light. Mucous membranes are dry because of high-flow oxygen. Neck is supple. There is moderate elevated venous distention (JVD). Patient has a right intrajugular (IJ) hemodialysis catheter and right subclavian triple-lumen catheter. CARDIOVASCULAR: S1, S2, irregularly irregular heart rate. No murmur, rub, or gallop. RESPIRATORY: Decreased breath sounds at the bases with coarse crepitations and expiratory rhonchi bilaterally. ABDOMEN: Abdomen, mildly distended. A lot of abdominal pain edema, especially on the left side, and large ecchymosis on the left flank region, starting from the left thoracic region all the way up to the left hip. GENITOURINARY: Patient has an indwelling Andre catheter. There is a small amount of urine in the bag. EXTREMITIES: Patient has large ecchymosis on the left shoulder area and the left hip area. She has 1+ pitting edema of the bilateral lower extremities, and she has contractures of bilateral toes. CENTRAL NERVOUS SYSTEM: Patient is oriented times one. She followed command. She has history of slow mentation. SKIN: Patient has multiple ecchymoses and bruises on the left side of the abdomen, left hip, and left shoulder area. PSYCHIATRIC: Patient has history of mental retardation but appears calm and cooperative at this time. LABORATORY REVIEW: CBC showed a WBC of 10.8 hemoglobin 8.7, platelets are 62. BMP done today morning showed sodium 138, potassium 3.8, chloride 103, bicarbonate 33, BUN is 6, creatinine is 0.49, calcium 6.9, ionized calcium 4.3, phosphorus 2.7, magnesium is 2. Microbiology: Urine culture sent on November 07 is growing 3000 colonies of Escherichia (E) coli. Blood culture is negative. IMAGING: A chest x-ray done today morning showed boom pulmonary edema and fluid in the fissures. CURRENT INPATIENT MEDICATIONS: Patient's inpatient medications were all reviewed by me. Patient continues to be on intravenous (IV) Zosyn and IV vancomycin since the day of admission. Patient was given one dose of hydralazine 10 mg IV today. ASSESSMENT: A 66-year-old female with past medical history of mental retardation, hypertension, atrial fibrillation. She was on anticoagulation. Also has history of diabetes mellitus, type 2, admitted at this time to intensive care unit (ICU) after trauma, falling from stairs, hemorrhagic shock, along with acute oliguric renal failure and shock liver with multiple electrolyte abnormalities. Patient was on CVVHDF because of renal failure and shock. It was stopped this morning. Patient is fluid overloaded at this moment. PLAN: 1. Central nervous system (BANK NOTE DESIGNER). Patient as history of mental retardation; otherwise no acute issues at this time. 2. Cardiovascular. Patient has acute hypoxia because of fluid overload and congestive heart failure. Patient has been started on CPAP. Pulmonary consult requested. Case was discussed with Dr. Aguilar. Urgent hemodialysis was arranged. Patient will be dialyzed today, and we plan to remove about 4 kg of fluid. 3. Respiratory. Patient was on Venturi mask because of flash pulmonary edema and fluid overload. She was transferred to [facility] because of worsening respiratory distress. Respiratory status is expected to improve with hemodialysis and ultrafiltration of about 4 kg of fluid. Patient is hemodynamically stable at this moment. If needed, we can do serial hemodialysis or ultrafiltration sessions in this patient. 4. Gastrointestinal (GI). Patient had shock liver on admission to intensive care unit (ICU). Liver function tests (LFTs) are improving. Patient is tolerating clear liquid diet at this moment. 5. Renal. Patient has acute oliguric renal failure because of acute tubular necrosis (ATN) secondary to hemorrhagic shock and hypotension. Pressors have been stopped. CVVHDF was stopped this morning. Patient is still oliguric; however, her blood pressure is stable at this time. I would evaluate the patient every day for any need to do hemodialysis. Patient is being emergently hemodialyzed at this time because of fluid overload. Continue to monitor the urine output. I expect patient's renal function to improve over the next few days. She is recovering from ATN. 6. Hematological/oncological. Patient came in with hemorrhagic shock. Hemoglobin is stabilizing at this moment. Continue to monitor complete blood count (CBC) every 12 hours and transfuse as needed for hemoglobin drop below 8. 7. Endocrine. Patient has diabetes mellitus, type 2. Continue the liquid diet. Continue insulin sliding scale. Avoid metformin and renal failure. 8. Electrolytes. On today's morning labs, patient had hypocalcemia, which was repleted according to CVVHDF protocol. 9. Metabolic acidosis. It is significantly improved with CVVHDF. Bicarbonate is actually 33 today. Further management of metabolic acidosis will be done with hemodialysis as needed. 10. Hypothermia. Hypothermia is improving after stopping the CVVHDF. Patient's temperature is 99.1 degrees Fahrenheit today in the afternoon. 11. Infectious disease. Patient's urine culture is growing less than 5000 colonies of Escherichia (E) coli. Patient is already on broad-spectrum antibiotics. CVVHDF has been stopped. I am going to stop patient's antibiotics at this time. 12. Musculoskeletal. Patient had trauma after fall from stairs. She has multiple ecchymosis on left shoulder, left flank region, and left hip. There was no acute fracture. She was aggressively resuscitated with fluid and crystalloid fluids. Patient will need to start physical therapy now. 13. IV lines. Patient has a right IJ nontunneled hemodialysis catheter. If patient's renal function does not improve over the next 24-48 hours, patient will need a tunneled hemodialysis catheter for further hemodialysis. She also has a right subclavian triple-lumen catheter, which is being used for medications and lab draws, because patient has significant edema secondary to fluid resuscitation. The plan of care was discussed with patient's RN at the bedside and with the hospitalist, Dr. Adolfo Ricci. Case was also discussed with pulmonary prescription benefit specialist, Dr. Aguilar. Emergency hemodialysis was arranged. Patient will be dialyzed for 3-1/2 hours today. Total critical care time spent in the management of this patient in intensive care unit was 45 minutes today.
--- NOTE | 2016-11-10 20:30 | ECHO ---
DATE OF PROCEDURE: 11/10/2016 REFERRING PHYSICIAN: Adolfo Ricci MD PATIENT LOCATION: Room 3204 REASON FOR ECHOCARDIOGRAM: Shortness of breath. 2D MEASUREMENTS: IVS: 1.0 cm LV: 3.6 cm LVPW: 1.0 cm LA: 3.4 cm Aorta: 2.8 cm DOPPLER MEASUREMENTS: Peak velocity across the aortic valve: 2.3 m/s Peak velocity across the LVOT: 1.6 m/s Peak gradient across the aortic valve: 21 mmHg Mean gradient across the aortic valve: 10 mmHg Mitral E: 0.65, Mitral A: 1.23, with a ratio of 0.5 Maximum tricuspid valve velocity: 2.9 m/s 2D COMMENTS: 1. Normal left ventricular size, wall thickness and normal global left ventricular systolic function. The estimated global left ventricular systolic ejection fraction is 60 to 65%. 2. Normal left atrium. The right atrium and right ventricle appeared to be mildly enlarged in limited views. 3. The atrial septum appeared to be normal without evidence of defect or shunt. 4. Normal aortic root. 5. No pericardial effusion seen. 6. Mildly calcified aortic valve, leaflet excursion may be minimally restricted. Mildly calcified mitral annulus with normal anterior mitral valve leaflet motion. Normal tricuspid valve and pulmonic valve. The proximal pulmonary artery branches were not well visualized. 7. The inferior vena cava was normal in size at 1.7 cm, central venous pressure is probably normal. DOPPLER: It detects mild aortic regurgitation, trace mitral regurgitation, mild tricuspid regurgitation, and mild pulmonary regurgitation. The calculated pulmonary artery systolic pressure varied between 40 to 50 mmHg. Abnormal relaxation pattern was noted across the mitral valve leaflets as well as the mitral valve annulus consistent with grade 1 left ventricular diastolic dysfunction. IMPRESSION: 1. Normal global left ventricular systolic function. There are some features of left ventricular diastolic dysfunction manifested by abnormal relaxation. 2. Aortic valve sclerosis with mild aortic regurgitation and mild aortic stenosis. 3. Mitral annulus calcification with trace mitral regurgitation. 4. Mild tricuspid regurgitation with probably moderate pulmonary hypertension. 5. Mild pulmonic regurgitation. 6. Not mentioned above, pacemaker wire artifact noted in the right heart chambers. 7. Pleural effusion was noted in limited views. 8. This was compared with last echocardiogram on 06/11/2015, left ventricular systolic function has been normal. MTDD
[2016-11-11] VITALS (17 sets, daily range): BP systolic 95–169; BP diastolic 56–86
[2016-11-11] MEDS: HumaLOG INSULIN (NovoLOG) PER UNIT SC SCH ×4 (00:15→18:00)
[2016-11-11] MEDS: NORCO, ANEXSIA 5/325MG TABLET (HYDROcodone/ACETAMINOPHEN) PO PRN (02:09)
[2016-11-11 05:44] LABS: ALBUMIN 2.3 GM/DL (3.2-5.2); ALBUMIN/GLOBULIN RATIO 1.05 (1.00-1.93); ALKALINE PHOSPHATASE 79 U/L (45-117); ALT/SGPT 703 U/L (12-78); ANION GAP 10 MEQ/L (8-16); AST/SGOT 332 U/L (15-37); BASO % 0.3 % (0.0-1.0); BILIRUBIN,TOTAL 1.3 MG/DL (0.2-1.0); BLOOD UREA NITROGEN 16 MG/DL (7-18); CALCIUM LEVEL 7.6 MG/DL (8.8-10.2); CARBON DIOXIDE LEVEL 26 MEQ/L (21-32); CHLORIDE LEVEL 98 MEQ/L (98-107); CREATININE FOR GFR 0.82 MG/DL (0.55-1.02); EOS % 0.3 % (0.0-3.0); GLUCOSE, FASTING 153 MG/DL (80-110); LARGE UNSTAINED CELL # 0.3 K/mm3 (0.0-0.4); LARGE UNSTAINED CELL % 2.5 % (0.0-4.0); LYMPH # 0.6 K/mm3 (1.5-4.5); LYMPH % 4.9 % (24.0-44.0); MEAN CORPUSCULAR HEMOGLOBIN 30.1 pg (27.0-33.0); MEAN CORPUSCULAR VOLUME 91.3 fl (80.0-96.0); MONO # 0.6 K/mm3 (0.0-0.8); MONO % 4.9 % (0.0-5.0); NEUTROPHILS # 11.2 K/mm3 (1.8-7.7); NEUTROPHILS % 87.1 % (36.0-66.0); POTASSIUM SERUM 3.8 MEQ/L (3.5-5.1); RED CELL DISTRIBUTION WIDTH 15.4 % (11.5-14.5); SODIUM LEVEL 134 MEQ/L (136-145); TOTAL PROTEIN 4.5 GM/DL (6.4-8.2); WHITE BLOOD COUNT 12.8 K/mm3 (4.0-10.0)
[2016-11-11 05:47] LABS: GLOMERULAR FILTRATION RATE > 60.0 (>45)
[2016-11-11 05:49] LABS: PLATELET COUNT, AUTOMATED 85 k/mm3 (150-450)
--- NOTE | 2016-11-11 07:52 | IPNPDOC ---
Subjective Date Seen The patient was seen on 11/11/16. Subjective Chief Complaint/HPI The patient is a 66-year-old female admitted with a reason for visit of Clavicular Fracture, Hematoma. General: Denies: ROS Unobtainable, Chills, Night Sweats, Fatigue, Malaise, Normal Appetite, Other Symptoms Constitutional: Denies: Chills, Fever, Malaise, Night Sweats, Weakness, Fatigue , Weight Loss, Lethargy, Other Eyes: Denies: Pain, Vision change, Conjunctivae inflammation, Eyelid inflammation, Redness, Other ENT: Denies: Head Aches, Ear Pain, Dysphagia, Sinus Congestion, Post Nasal Drip , Sore Throat, Epistaxis, Other Symptoms Skin: Denies: Rash, Lesions, Jaundice, Bruising, Itching, Dry, Breakdown, Nail Changes, Other Pulmonary: Reports: Dyspnea, Denies: Cough, Pleuritic Chest Pain, Other Symptoms Cardiovascular: Denies: Chest Pain, Palpitations, Orthopnea, Paroxysmal Noc. Dyspnea, Edema, Lt Headedness, Other Symptoms Gastrointestinal: Denies: Nausea, Vomiting, Abdominal Pain, Diarrhea, Constipation, Melena, Hematochezia, Other Symptoms Genitourinary: Denies: Dysuria, Frequency, Incontinence, Hematuria, Retention, Other Symptoms Objective Physical Examination General Exam: Positive: Alert, Cooperative, No Acute Distress Eye Exam: Positive: PERRLA Chest Exam: Positive: Rales, Diminished, Other (PPM noted in left infraclavicular fossa, some swelling around left clavicle; right IJ dialysis cath; right chest central line) Heart Exam: Positive: Rate Normal Telemetry: Positive: Other Telemetry: (paced ) Abdomen Exam: Positive: Normal bowel sounds, Soft, Tenderness, Other (obese) Extremity Exam: Positive: Tenderness, Other (large left flank/hip hematoma today extending to left shoulder - improving) Psych Exam: Negative: Oriented x 3 (oriented to person and place) Assessment /Plan Problems (1) Acute respiratory failure with hypoxia Status: Acute Discussed With: Patient Problem Specific Plan: Monitor Clinically, Repeat Tests Problem Text: Likely secondary to fluid overload - decompensated CHF. 2D echo - similar to May 2015 with diastolic dysfunction, pleural effusion noted on this study. Currently receiving CPAP. (2) Hemorrhagic shock Status: Resolved Response to Treatment: Improving Discussed With: Patient Problem Specific Plan: Monitor Clinically, Repeat Labs, Repeat Tests Problem Text: Secondary to large left flank/hip hematoma - transfuse to keep Hg >8. Complicated with afib on NOAC (Eliquis). Today is day #5 off Eliquis. S/P 3 units FFP. Off pressors, blood pressures WNL. Leukocytosis - likely reactive, abx discontinued (3) Shock liver Status: Acute Response to Treatment: Improving Discussed With: Patient Problem Specific Plan: Repeat Labs Problem Text: Continues to improve, likely secondary to #1 hemorrhagic shock. Hepatitis panel unremarkable. Liver ultrasound unremarkable. (4) ARABELLA (acute kidney injury) Status: Resolved Discussed With: Production Control Scheduler, Patient Problem Specific Plan: Consult Specialist, Repeat Labs Problem Text: Still receiving CVVHDF. Will discuss with nephrology regarding addressing fluid overload, assistance appreciated. (5) Acute blood loss anemia Status: Resolved Response to Treatment: Improving, Progressing Discussed With: Patient Problem Specific Plan: Monitor Clinically, Repeat Labs Problem Text: Secondary to hemorrhage/hematoma from fall. Appears to be stable. S/P 10 units PRBC. As above, transfuse to keep Hgb > 8. (6) Diabetes Status: Chronic Discussed With: Patient Problem Specific Plan: Repeat Labs (7) Afib Status: Chronic Problem Specific Plan: Monitor Clinically Problem Text: Rate controlled. Was anti-coagulated with NOAC. Discontinued secondary to hemorrhagic shock. (8) Presence of permanent cardiac pacemaker Status: Chronic Problem Specific Plan: Monitor Clinically Problem Text: Paced rhythm. Reason for PPM not clear, possibly SSS. Abnormal spikes noted on cardiac care unit nurse- cardiology consultation pending for further evaluation. (9) Mental retardation Status: Chronic (10) HTN (hypertension) (11) Dyslipidemia (12) Fall (on) (from) other stairs and steps, initial encounter Status: Acute Discussed With: Patient Problem Specific Plan: Consult Specialist Problem Text: Appears to have been mechanical fall as per patient recollection , however she is questionable historian. Left clavicular fracture noted on imaging, ortho consultation pending. Plan/VTE VTE Prophylaxis Ordered?: Yes Plan/Urinary Catheter Reason for insertion/continuin: Critical Pt monitoring Plan IVF: Discontinue Diet: Continue Current Activity: Bedrest Diagnostics: Check Labs, Obtain Cultures Anticipated Discharge: Home Advance Directives: HCP VS, I&O, 24H, Fishbone Vital Signs/I&O Vital Signs Date Time Temp Pulse Resp B/P (MAP) Pulse Ox O2 Delivery O2 Flow Rate FiO2 11/11/16 06:00 76 22 155/86 (109) 92 NIPPV (BIPAP/CPAP) 60 11/11/16 04:00 98.4 11/09/16 05:34 15.0 I&O- Last 24 Hours up to 6 AM 11/11/16 06:00 Intake Total 705 ml Output Total 4220 ml Balance -3515 ml Laboratory Data 24H LABS Laboratory Tests 2 11/10/16 11:41: Bedside Glucose (Misc Panel) 93 11/10/16 14:59: Blood Gas Bicarbonate Standard 25.5, Arterial Blood pH 7.440, Arterial Blood Partial Pressure CO2 38.1, Arterial Blood Partial Pressure O2 75.8, Arterial Blood Total CO2 26.5, Arterial Blood HCO3 25.3, Arterial Blood Base Excess 1.2, Arterial Blood Oxygen Saturation 95.3 11/10/16 17:50: Bedside Glucose (Misc Panel) 106 11/11/16 00:12: Bedside Glucose (Misc Panel) 186H 11/11/16 05:05: White Blood Count 12.8H, Red Blood Count 3.06L, Hemoglobin 9.2L, Hematocrit 27.9L, Mean Corpuscular Volume 91.3, Mean Corpuscular Hemoglobin 30.1, Mean Corpuscular Hemoglobin Concent 33.0, Red Cell Distribution Width 15.4H, Platelet Count 85L, Neutrophils (%) (Auto) 87.1H, Lymphocytes (%) (Auto) 4.9L, Monocytes (%) (Auto) 4.9, Eosinophils (%) (Auto) 0.3, Basophils (%) (Auto) 0.3, Neutrophils # (Auto) 11.2H, Lymphocytes # (Auto) 0.6L, Monocytes # (Auto) 0.6, Eosinophils # (Auto) 0.0, Basophils # (Auto) 0.0, Large Unclassified Cells % 2.5 , Large Unclassified Cells # 0.3, Anion Gap 10, Glomerular Filtration Rate > 60.0, Blood Urea Nitrogen 16#, Creatinine 0.82#, Sodium Level 134L, Potassium Level 3.8, Chloride Level 98, Carbon Dioxide Level 26, Calcium Level 7.6L, Aspartate Amino Transf (AST/SGOT) 332H, Alanine Aminotransferase (ALT/SGPT) 703H , Alkaline Phosphatase 79, Total Bilirubin 1.3H, Total Protein 4.5L, Albumin 2.3L, Albumin/Globulin Ratio 1.05 CBC/BMP Laboratory Tests 11/11/16 05:05 Red Blood Count 3.06 L, Mean Corpuscular Volume 91.3, Mean Corpuscular Hemoglobin 30.1, Mean Corpuscular Hemoglobin Concent 33.0, Red Cell Distribution Width 15.4 H, Neutrophils (%) (Auto) 87.1 H, Lymphocytes (%) (Auto ) 4.9 L, Monocytes (%) (Auto) 4.9, Eosinophils (%) (Auto) 0.3, Basophils (%) ( Auto) 0.3, Neutrophils # (Auto) 11.2 H, Lymphocytes # (Auto) 0.6 L, Monocytes # (Auto) 0.6, Eosinophils # (Auto) 0.0, Basophils # (Auto) 0.0, Calcium Level 7.6 L, Aspartate Amino Transf (AST/SGOT) 332 H, Alanine Aminotransferase (ALT/SGPT) 703 H, Alkaline Phosphatase 79, Total Bilirubin 1.3 H, Total Protein 4.5 L, Albumin 2.3 L Microbiology Microbiology 11/07/16 Blood Culture - Preliminary, Resulted No Growth after 72 hours. All specime... 11/07/16 Blood Culture - Preliminary, Resulted No Growth after 72 hours. All specime... 11/10/16 MRSA Screen, Received Pending 11/07/16 Urine Culture - Final, Complete Escherichia Coli RUBI CARTY MD Nov 11, 2016 07:52
[2016-11-11] MEDS: DOCUSATE SODIUM 100 MG CAP PO SCH ×2 (08:00→20:05)
[2016-11-11] MEDS: SANTYL OINT 30GM TOP SCH (08:00)
[2016-11-11] MEDS ORDERED: HEPARIN 1,000 UNITS/ML 10ML VIAL (FOR RADIOLOGY& DIALYSIS ONLY) XX ONE (11:00)
[2016-11-11] MEDS: FUROSEMIDE injection 250 MG in D5W 225 ML IV SCH (12:28)
--- NOTE | 2016-11-11 13:25 | CCN ---
DATE OF SERVICE: 11/11/2016 Critical care time was 57 minutes. This excludes all procedures. Patient remains on continuous positive airway pressure (CPAP) due to extensive pulmonary edema. Patient states that she is feels tired today. She has known atrial fibrillation with sick sinus syndrome, pacemaker placed, and mitral valve disease. She diuresed 3 liters yesterday. Patient is sleeping on CPAP, not answering many questions currently. PHYSICAL EXAMINATION: Temperature is 98.9, pulse is 71, respiratory rate of 24, blood pressure is 119/72 with a mean arterial pressure 88, oxygen saturations 92% on 0.60. Intake and output: 1045 in, 4285 out, net negative 30-40. Currently, she is off renal replacement therapy. General: Patient is sleepy but arousable. Pupils are equal and reactive to light. There is bruising over her right adventism. Mucous membranes are moist. Tongue is large, midline. Neck: Supple. No tracheal deviation or mass. Cardiac: Irregularly irregular, S1, S2. Without audible rub or gallop. Peripheral pulses are diminished. There is some systemic edema, I believe upper extremities more so than lower extremities. Pulmonary: Decreased breath sounds throughout. Without rales, rhonchi or wheezes. No dullness to percussion. Abdomen: Bruising on the left flank. Positive bowel sounds. Nondistended. No hepatosplenomegaly. No masses. Neurologic: Sleepy but arousable. Appears to be appropriate. No evidence of seizure activity. Has appropriate movements. Skin: Significant bruising consistent with her recent fall covering nearly her entire left side, mostly left flank, left hip. No calf pain. Minimal edema as mentioned above. Laboratory evaluation shows an arterial blood gas 7.44, pCO2 of 38, pO2 of 76 on CPAP of 10 with 60% FiO2. White blood cell count is 12.8, hemoglobin is 9.2, hematocrit is 27.9, platelet count of 85 with a sodium 134, potassium 3.8, chloride 98, bicarbonate of 26, BUN is 16, creatinine 0.82 with a total bilirubin of 1.3, AST is 33, ALT is 703. Chest x-ray from yesterday shows diffuse pulmonary edema. There is no imaging from this morning. 1. Hypoxic respiratory failure with pulmonary edema. Continues on CPAP. Will repeat chest x-ray tomorrow morning to see if there is improvement given her 3 liter diuresis. Will continue efforts towards diuresis as long as blood pressure and kidney function remain fair. 2. Hemorrhagic shock, resolved. Patient is anemic today. Will continue to monitor anemia. 3. Diabetes. 4. Atrial fibrillation. 5. Acute kidney injury. Currently has decent urine output. Followed by nephrology. She continues to require intensive care unit (ICU) stay. She is critically ill because of her hypoxia and degree of pulmonary edema. Will attempt a trial off CPAP tomorrow as long as she remains adequately oxygenated. Overall prognosis is guarded given her respiratory status.
--- NOTE | 2016-11-11 13:40 | REP ---
Sitting portable chest x-ray: History: Pulmonary edema, hypoxia. Comparison study November 10, 2016. Findings: The left lung base is excluded from the imaging field of view of today's exposure. There are hazy bilateral perihilar and left base infiltrates again noted. There is some clearing in the left upper perihilar region compared to yesterday's study. Bipolar pacemaker remains in the right heart. Cardiomegaly is observed unchanged. Right subclavian and right internal jugular venous lines are seen as before. Impression: Hazy bilateral perihilar opacities may reflect pulmonary edema or bilateral pulmonary infiltrates. Mild improvement in the upper perihilar region on the left. Signed by Dada Tarango MD 11/11/2016 04:13 P
[2016-11-11 16:28] LABS: ANION GAP 8 MEQ/L (8-16); BLOOD UREA NITROGEN 18 MG/DL (7-18); CALCIUM LEVEL 7.5 MG/DL (8.8-10.2); CARBON DIOXIDE LEVEL 31 MEQ/L (21-32); CHLORIDE LEVEL 100 MEQ/L (98-107); GLOMERULAR FILTRATION RATE > 60.0 (>45); GLUCOSE, FASTING 131 MG/DL (80-110); POTASSIUM SERUM 3.1 MEQ/L (3.5-5.1); SODIUM LEVEL 139 MEQ/L (136-145)
[2016-11-11] MEDS ORDERED: KCL 20MEQ IN 100ML SWI (KRUN) 20 MEQ in APPROPRIATE DILUENT 1 EA IV ONE ×2 (20:00)
[2016-11-11] MEDS: ACETAMINOPHEN TAB 650MG DOSE (2X325MG) PO PRN (20:12)
--- NOTE | 2016-11-11 21:26 | IPN ---
DATE:11/11/2016 SUBJECTIVE: Ms. Gongora is seen this morning on her bedside in intensive care unit. She was admitted with hemorrhagic shock due to fall and a large hematoma on her left side. She underwent a large amount of blood transfusions and intravenous (IV) fluid. She also had acute renal failure and required continuous venovenous hemodiafiltration (CVVHD) as she was initially on pressors. Now CVVHD has been stopped and she underwent hemodialysis yesterday due to volume overload. Four liters of fluid were removed by ultrafiltration. The patient remains markedly edematous and short of breath. She is currently on BiPAP. She was a oliguric; however, some urine output has now started, about 10-20 mL per hour. Her antibiotics have been stopped and she is afebrile and hemodynamically stable. PHYSICAL EXAMINATION: VITAL SIGNS: Temperature 98.9 degrees Fahrenheit, heart rate 70 per minute and respiratory rate 24 per minute. Blood pressure 119/72 mmHg and oxygen saturation 92% on 60% FIO2. HEAD/NECK: Head is atraumatic. Central lines are present in the neck. The dialysis catheter is also present. She has marked edema of her face and neck area in addition to rest of her body. At present she is using BiPAP mask. HEART/LUNGS: Heart sounds are regular and lungs have diminished breath sounds with bilateral diffuse rales. ABDOMEN: Soft, edematous and nontender. Bowel sounds are present. There is no palpable organomegaly. EXTREMITIES: Have no cyanosis or clubbing. Generalized edema is present with anasarca. SKIN: Has no rash or ulcers. NEUROLOGIC: She is moving all her limbs. She is able to nod her head and answering simple questions. LABORATORY DATA: Today's labs show WBC count 12.8, hemoglobin 9.2 and hematocrit 27.9. Platelets 85,000. Sodium 134 and potassium 3.8. BUN 16 and creatinine 0.82. Calcium level is 7.6. AST 332 and ALT 703. PROBLEMS: 1. Anuric acute renal failure related to hypovolemic shock. The patient still oliguric; however, her blood pressure has improved. She underwent hemodialysis yesterday and four liters of fluid was removed. We will try to dialyze her again today for ultrafiltration alone. 2. Generalized edema, hypoxemia and volume overload. This is related to IV fluids and blood products given when she was in shock. We are going to start her on IV Lasix drip at 10 mg per hour. Urine output will be monitored. I have also made arrangements for hemodialysis later this afternoon for ultrafiltration of another four liters of fluid today. 3. Hyponatremia. This is mild and likely to correct. No intervention is indicated other than scheduled dialysis procedure. 4. Anemia. Her anemia is stable and does not need any intervention at this point. 5. Elevated transaminases. Most likely this is caused by passive hepatic congestion due to hypervolemia. It is likely to correct with correction of her volume status.
[2016-11-11 23:26] LABS: ALBUMIN 2.1 GM/DL (3.2-5.2); ANION GAP 8 MEQ/L (8-16); BLOOD UREA NITROGEN 21 MG/DL (7-18); CALCIUM LEVEL 7.5 MG/DL (8.8-10.2); CARBON DIOXIDE LEVEL 30 MEQ/L (21-32); CHLORIDE LEVEL 100 MEQ/L (98-107); CREATININE FOR GFR 0.88 MG/DL (0.55-1.02); GLOMERULAR FILTRATION RATE > 60.0 (>45); GLUCOSE, FASTING 147 MG/DL (80-110); MAGNESIUM LEVEL 1.2 MG/DL (1.8-2.4); PHOSPHORUS LEVEL 2.7 MG/DL (2.5-4.9); POTASSIUM SERUM 3.1 MEQ/L (3.5-5.1); SODIUM LEVEL 138 MEQ/L (136-145)
[2016-11-12] VITALS (16 sets, daily range): BP systolic 93–134; BP diastolic 52–77
[2016-11-12] MEDS: HumaLOG INSULIN (NovoLOG) PER UNIT SC SCH ×4 (00:47→18:12)
[2016-11-12] MEDS ORDERED: MAG SULF 1GM/100ML (MAG RUN) 1 GM in APPROPRIATE DILUENT 1 EA IV ONE ×2 (02:00→12:00)
[2016-11-12] MEDS ORDERED: KCL 20MEQ IN 100ML SWI (KRUN) 20 MEQ in APPROPRIATE DILUENT 1 EA IV ONE ×4 (03:00→13:00)
[2016-11-12] MEDS ORDERED: POTASSIUM CHLORIDE INJ 20 MEQ in D5W/LR 1,000 ML IV SCH (04:00)
[2016-11-12 05:59] LABS: BASO % 0.2 % (0.0-1.0); EOS % 0.4 % (0.0-3.0); LARGE UNSTAINED CELL # 0.3 K/mm3 (0.0-0.4); LARGE UNSTAINED CELL % 2.8 % (0.0-4.0); LYMPH # 0.5 K/mm3 (1.5-4.5); LYMPH % 5.6 % (24.0-44.0); MEAN CORPUSCULAR HEMOGLOBIN 30.4 pg (27.0-33.0); MEAN CORPUSCULAR HGB CONC 32.7 g/dl (32.0-36.5); MONO # 0.6 K/mm3 (0.0-0.8); MONO % 5.8 % (0.0-5.0); NEUTROPHILS # 8.2 K/mm3 (1.8-7.7); NEUTROPHILS % 85.2 % (36.0-66.0); PLATELET COUNT, AUTOMATED 101 k/mm3 (150-450); RED CELL DISTRIBUTION WIDTH 15.6 % (11.5-14.5); WHITE BLOOD COUNT 9.6 K/mm3 (4.0-10.0)
[2016-11-12 06:12] LABS: ALBUMIN 2.1 GM/DL (3.2-5.2); ALKALINE PHOSPHATASE 73 U/L (45-117); ALT/SGPT 471 U/L (12-78); ANION GAP 8 MEQ/L (8-16); AST/SGOT 112 U/L (15-37); BILIRUBIN,TOTAL 1.4 MG/DL (0.2-1.0); BLOOD UREA NITROGEN 24 MG/DL (7-18); CALCIUM LEVEL 7.4 MG/DL (8.8-10.2); CARBON DIOXIDE LEVEL 32 MEQ/L (21-32); CHLORIDE LEVEL 98 MEQ/L (98-107); CREATININE FOR GFR 0.98 MG/DL (0.55-1.02); GLOMERULAR FILTRATION RATE > 60.0 (>45); GLUCOSE, FASTING 168 MG/DL (80-110); MAGNESIUM LEVEL 1.5 MG/DL (1.8-2.4); POTASSIUM SERUM 3.1 MEQ/L (3.5-5.1); SODIUM LEVEL 138 MEQ/L (136-145); TOTAL PROTEIN 5.1 GM/DL (6.4-8.2)
[2016-11-12 06:24] LABS: INR 1.17
--- NOTE | 2016-11-12 07:37 | IPNPDOC ---
Subjective Date Seen The patient was seen on 11/12/16. Subjective Chief Complaint/HPI The patient is a 66-year-old female admitted with a reason for visit of Clavicular Fracture, Hematoma. General: Denies: ROS Unobtainable, Chills, Night Sweats, Fatigue, Malaise, Normal Appetite, Other Symptoms Constitutional: Denies: Chills, Fever, Malaise, Night Sweats, Weakness, Fatigue , Weight Loss, Lethargy, Other Eyes: Denies: Pain, Vision change, Conjunctivae inflammation, Eyelid inflammation, Redness, Other ENT: Denies: Head Aches, Ear Pain, Dysphagia, Sinus Congestion, Post Nasal Drip , Sore Throat, Epistaxis, Other Symptoms Skin: Denies: Rash, Lesions, Jaundice, Bruising, Itching, Dry, Breakdown, Nail Changes, Other Pulmonary: Denies: Dyspnea, Cough, Pleuritic Chest Pain, Other Symptoms Cardiovascular: Denies: Chest Pain, Palpitations, Orthopnea, Paroxysmal Noc. Dyspnea, Edema, Lt Headedness, Other Symptoms Gastrointestinal: Denies: Nausea, Vomiting, Abdominal Pain, Diarrhea, Constipation, Melena, Hematochezia, Other Symptoms Genitourinary: Denies: Dysuria, Frequency, Incontinence, Hematuria, Retention, Other Symptoms Objective Physical Examination General Exam: Positive: Alert, Cooperative, No Acute Distress Eye Exam: Positive: PERRLA Chest Exam: Positive: Rales, Diminished, Other (PPM noted in left infraclavicular fossa, some swelling around left clavicle; right IJ dialysis cath; right chest central line) Heart Exam: Positive: Rate Normal Telemetry: Positive: No significant arrhythmia, Sinus Abdomen Exam: Positive: Normal bowel sounds, Soft, Tenderness, Other (obese) Extremity Exam: Positive: Tenderness, Other (large left flank/hip hematoma today extending to left shoulder - improving) Psych Exam: Negative: Oriented x 3 (oriented to person and place) Assessment /Plan Problems (1) Acute respiratory failure with hypoxia Status: Acute Discussed With: Patient Problem Specific Plan: Monitor Clinically, Repeat Tests Problem Text: Likely secondary to fluid overload - decompensated CHF. 2D echo - similar to May 2015 with diastolic dysfunction, pleural effusion noted on this study. Currently receiving CPAP. Lasix gtt. (2) Hemorrhagic shock Status: Resolved Response to Treatment: Improving Discussed With: Patient Problem Specific Plan: Monitor Clinically, Repeat Labs, Repeat Tests Problem Text: Secondary to large left flank/hip hematoma - transfuse to keep Hg >8. S/P 10 unit PRBC. Complicated with afib on NOAC (Eliquis). Today is day #6 off Eliquis. S/P 3 units FFP, 1 unit platelets. Off pressors, blood pressures WNL. Leukocytosis - likely reactive, resolved. abx discontinued (3) Shock liver Status: Acute Response to Treatment: Improving Discussed With: Patient Problem Specific Plan: Repeat Labs Problem Text: Continues to improve, likely secondary to #1 hemorrhagic shock. Hepatitis panel unremarkable. Liver ultrasound unremarkable. (4) ARABELLA (acute kidney injury) Status: Resolved Discussed With: Rural Sociologist, Patient Problem Specific Plan: Consult Specialist, Repeat Labs Problem Text: Off CVVHDF. (5) Acute blood loss anemia Status: Resolved Response to Treatment: Improving, Progressing Discussed With: Patient Problem Specific Plan: Monitor Clinically, Repeat Labs Problem Text: Secondary to hemorrhage/hematoma from fall. Appears to be stable. S/P 10 units PRBC. As above, transfuse to keep Hgb > 8. (6) Diabetes Status: Chronic Discussed With: Patient Problem Specific Plan: Repeat Labs (7) Afib Status: Chronic Problem Specific Plan: Monitor Clinically Problem Text: Rate controlled. Was anti-coagulated with NOAC. Discontinued secondary to hemorrhagic shock. (8) Presence of permanent cardiac pacemaker Status: Chronic Problem Specific Plan: Monitor Clinically Problem Text: Paced rhythm. Reason for PPM not clear, possibly SSS. Abnormal spikes noted on youth nutritional monitor- cardiology consultation pending for further evaluation. (9) Mental retardation Status: Chronic (10) HTN (hypertension) (11) Dyslipidemia (12) Fall (on) (from) other stairs and steps, initial encounter Status: Acute Discussed With: Patient Problem Specific Plan: Consult Specialist Problem Text: Appears to have been mechanical fall as per patient recollection , however she is questionable historian. Left clavicular fracture noted on imaging, ortho consultation pending. Plan/VTE VTE Prophylaxis Ordered?: Yes Plan/Urinary Catheter Reason for insertion/continuin: Critical Pt monitoring Plan IVF: Discontinue Diet: Continue Current Activity: Bedrest Diagnostics: Check Labs, Obtain Cultures Anticipated Discharge: Home Advance Directives: HCP VS, I&O, 24H, Fishbone Vital Signs/I&O Vital Signs Date Time Temp Pulse Resp B/P (MAP) Pulse Ox O2 Delivery O2 Flow Rate FiO2 11/12/16 06:03 67 24 108/56 (73) 97 NIPPV (BIPAP/CPAP) 40 11/12/16 04:00 98.2 11/09/16 05:34 15.0 I&O- Last 24 Hours up to 6 AM 11/12/16 06:00 Intake Total 320 ml Output Total 7035 ml Balance -6715 ml Laboratory Data 24H LABS Laboratory Tests 2 11/11/16 12:21: Bedside Glucose (Misc Panel) 131H 11/11/16 15:59: Anion Gap 8, Glomerular Filtration Rate > 60.0, Blood Urea Nitrogen 18, Creatinine 0.80, Sodium Level 139, Potassium Level 3.1L, Chloride Level 100, Carbon Dioxide Level 31, Calcium Level 7.5L 11/11/16 17:58: Bedside Glucose (Misc Panel) 134H 11/11/16 22:58: Anion Gap 8, Glomerular Filtration Rate > 60.0, Blood Urea Nitrogen 21H, Creatinine 0.88, Sodium Level 138, Potassium Level 3.1L, Chloride Level 100, Carbon Dioxide Level 30, Calcium Level 7.5L, Phosphorus Level 2.7, Magnesium Level 1.2L, Albumin 2.1L 11/12/16 00:11: Bedside Glucose (Misc Panel) 158H 11/12/16 05:35: White Blood Count 9.6, Red Blood Count 2.95L, Hemoglobin 9.0L, Hematocrit 27.4L , Mean Corpuscular Volume 93.0, Mean Corpuscular Hemoglobin 30.4, Mean Corpuscular Hemoglobin Concent 32.7, Red Cell Distribution Width 15.6H, Platelet Count 101L, Neutrophils (%) (Auto) 85.2H, Lymphocytes (%) (Auto) 5.6L, Monocytes (%) (Auto) 5.8H, Eosinophils (%) (Auto) 0.4, Basophils (%) (Auto) 0.2 , Neutrophils # (Auto) 8.2H, Lymphocytes # (Auto) 0.5L, Monocytes # (Auto) 0.6, Eosinophils # (Auto) 0.0, Basophils # (Auto) 0.0, Large Unclassified Cells % 2.8 , Large Unclassified Cells # 0.3, Prothrombin Time 15.0H, Prothromb Time International Ratio 1.17, Anion Gap 8, Glomerular Filtration Rate > 60.0, Blood Urea Nitrogen 24H, Creatinine 0.98, Sodium Level 138, Potassium Level 3.1L, Chloride Level 98, Carbon Dioxide Level 32, Calcium Level 7.4L, Aspartate Amino Transf (AST/SGOT) 112H, Alanine Aminotransferase (ALT/SGPT) 471H, Alkaline Phosphatase 73, Total Bilirubin 1.4H, Total Protein 5.1L, Albumin 2.1L, Magnesium Level 1.5L, Albumin/Globulin Ratio 0.70L 11/12/16 05:43: Bedside Glucose (Misc Panel) 165H CBC/BMP Laboratory Tests 11/11/16 15:59 Calcium Level 7.5 L 11/11/16 22:58 Anion Gap 8 11/12/16 05:35 Calcium Level 7.4 L, Red Blood Count 2.95 L, Mean Corpuscular Volume 93.0, Mean Corpuscular Hemoglobin 30.4, Mean Corpuscular Hemoglobin Concent 32.7, Red Cell Distribution Width 15.6 H, Neutrophils (%) (Auto) 85.2 H, Lymphocytes (%) (Auto ) 5.6 L, Monocytes (%) (Auto) 5.8 H, Eosinophils (%) (Auto) 0.4, Basophils (%) ( Auto) 0.2, Neutrophils # (Auto) 8.2 H, Lymphocytes # (Auto) 0.5 L, Monocytes # ( Auto) 0.6, Eosinophils # (Auto) 0.0, Basophils # (Auto) 0.0, Aspartate Amino Transf (AST/SGOT) 112 H, Alanine Aminotransferase (ALT/SGPT) 471 H, Alkaline Phosphatase 73, Total Bilirubin 1.4 H, Total Protein 5.1 L, Albumin 2.1 L Microbiology Microbiology 11/07/16 Blood Culture - Preliminary, Resulted No Growth after 72 hours. All specime... 11/07/16 Blood Culture - Preliminary, Resulted No Growth after 72 hours. All specime... 11/10/16 MRSA Screen - Final, Complete 11/07/16 Urine Culture - Final, Complete Escherichia Coli RUBI CARTY MD Nov 12, 2016 07:37
[2016-11-12] MEDS ORDERED: POTASSIUM CHLORIDE 10 MEQ SR TABLET PO ONE ×2 (08:00→13:00)
[2016-11-12] MEDS: SANTYL OINT 30GM TOP SCH (08:13)
[2016-11-12] MEDS: DOCUSATE SODIUM 100 MG CAP PO SCH ×2 (08:13→20:18)
[2016-11-12] MEDS: FUROSEMIDE injection 250 MG in D5W 225 ML IV SCH (12:34)
[2016-11-12] MEDS: NORCO, ANEXSIA 5/325MG TABLET (HYDROcodone/ACETAMINOPHEN) PO PRN (16:21)
[2016-11-12 19:04] LABS: CALCIUM LEVEL 6.6 MG/DL (8.8-10.2); CREATININE FOR GFR 1.05 MG/DL (0.55-1.02); GLOMERULAR FILTRATION RATE 55.5 (>45); MAGNESIUM LEVEL 1.5 MG/DL (1.8-2.4); POTASSIUM SERUM 3.8 MEQ/L (3.5-5.1)
--- NOTE | 2016-11-12 19:31 | IPN ---
DATE: 11/12/2016 Mrs. Gongora is seen this morning on her bedside in intensive care unit. She remains on BiPap. The patient's sister and [id number] are present in the room. She underwent hemodialysis yesterday and also has been on IV Lasix drip due to severe hypervolemia and respiratory failure. We removed about 4 liters of fluid with hemodialysis and she also started to diurese with IV Lasix drip. Her respiratory status has improved significantly. She has no fever or chills. Nursing staff reports that she did eat small amount of her liquid diet. She was also able to take her oral medications. On physical examination, temperature 98.2 degrees Fahrenheit, heart rate 60 per minute and respiratory rate 20 per minute. Blood pressure 107/63 mmHg and oxygen saturation 98%. Head is atraumatic. Central line in the right side is present and hemodialysis catheter is intact. Neck veins are difficult to be assessed. She is using BiPap mask. Heart sounds are regular and lungs with diminished breath sounds at bases with bilateral basilar rales. Abdomen soft and nontender. Abdominal wall edema has improved significantly. Extremities have no cyanosis or clubbing. Neurologically she is awake and responds appropriately. Skin has large area of ecchymosis from her left shoulder down to her groin area. Today's labs show WBC count 9.6, hemoglobin 9.0 and hematocrit 27.4. Sodium 138, potassium 3.1, BUN 24 and creatinine 0.98. Glucose 168 and calcium 7.4. Magnesium level 1.5. PROBLEMS: 1. Oliguric acute renal failure. The patient is currently non oliguric and making good amount of urine. She did have hemodialysis yesterday only for fluid removal. I do not feel that she will need dialysis anymore. At this point we will continue to monitor her kidney function on a daily basis. 2. Hypokalemia. She has received potassium supplement early both orally and intravenously. She has no central line now and another dose of 40 mEq potassium chloride will be given by mouth. 3. Hypomagnesemia. She received magnesium 1 gram yesterday and will give her one more gram of magnesium sulfate. 4. Respiratory insufficiency. The patient remains on BiPap due to respiratory insufficiency caused by hypervolemia. She is diuresing nicely and we will continue with IV Lasix drip until her volume status is corrected and she is able to come off the BiPap. A chest x-ray will be repeated tomorrow morning. 5. Anemia. Her anemia has been stable and there is no more active bleeding. We will recheck her complete blood count (CBC) tomorrow morning.
[2016-11-13] VITALS: BP 132/80
[2016-11-13] MEDS: NORCO, ANEXSIA 5/325MG TABLET (HYDROcodone/ACETAMINOPHEN) PO PRN (00:01)
[2016-11-13 04:00] VITALS: BP 111/68
[2016-11-13 04:39] LABS: INR 1.05
[2016-11-13 04:40] LABS: BASO % 0.3 % (0.0-1.0); EOS # 0.2 K/mm3 (0.0-0.50); EOS % 2.6 % (0.0-3.0); LARGE UNSTAINED CELL # 0.3 K/mm3 (0.0-0.4); LARGE UNSTAINED CELL % 3.2 % (0.0-4.0); LYMPH # 0.9 K/mm3 (1.5-4.5); LYMPH % 7.1 % (24.0-44.0); MEAN CORPUSCULAR HEMOGLOBIN 30.1 pg (27.0-33.0); MEAN CORPUSCULAR HGB CONC 33.2 g/dl (32.0-36.5); MEAN CORPUSCULAR VOLUME 90.6 fl (80.0-96.0); MONO # 0.5 K/mm3 (0.0-0.8); MONO % 5.9 % (0.0-5.0); NEUTROPHILS # 7.1 K/mm3 (1.8-7.7); NEUTROPHILS % 80.9 % (36.0-66.0); PLATELET COUNT, AUTOMATED 150 k/mm3 (150-450); RED CELL DISTRIBUTION WIDTH 15.9 % (11.5-14.5); WHITE BLOOD COUNT 8.8 K/mm3 (4.0-10.0)
[2016-11-13 04:46] LABS: ALBUMIN 2.1 GM/DL (3.2-5.2); ALBUMIN/GLOBULIN RATIO 0.66 (1.00-1.93); BILIRUBIN,TOTAL 1.4 MG/DL (0.2-1.0); CALCIUM LEVEL 7.2 MG/DL (8.8-10.2); GLOMERULAR FILTRATION RATE 58.7 (>45); POTASSIUM SERUM 3.5 MEQ/L (3.5-5.1); TOTAL PROTEIN 5.3 GM/DL (6.4-8.2)
[2016-11-13] MEDS: HumaLOG INSULIN (NovoLOG) PER UNIT SC SCH ×5 (06:14→20:18)
[2016-11-13 06:22] LABS: MAGNESIUM LEVEL 1.5 MG/DL (1.8-2.4)
--- NOTE | 2016-11-13 07:48 | IPNPDOC ---
Subjective Date Seen The patient was seen on 11/13/16. Subjective Chief Complaint/HPI The patient is a 66-year-old female admitted with a reason for visit of Clavicular Fracture, Hematoma. General: Denies: ROS Unobtainable, Chills, Night Sweats, Fatigue, Malaise, Normal Appetite, Other Symptoms Constitutional: Denies: Chills, Fever, Malaise, Night Sweats, Weakness, Fatigue , Weight Loss, Lethargy, Other Eyes: Denies: Pain, Vision change, Conjunctivae inflammation, Eyelid inflammation, Redness, Other ENT: Denies: Head Aches, Ear Pain, Dysphagia, Sinus Congestion, Post Nasal Drip , Sore Throat, Epistaxis, Other Symptoms Skin: Denies: Rash, Lesions, Jaundice, Bruising, Itching, Dry, Breakdown, Nail Changes, Other Pulmonary: Reports: Dyspnea, Denies: Cough, Pleuritic Chest Pain, Other Symptoms Cardiovascular: Denies: Chest Pain, Palpitations, Orthopnea, Paroxysmal Noc. Dyspnea, Edema, Lt Headedness, Other Symptoms Gastrointestinal: Denies: Nausea, Vomiting, Abdominal Pain, Diarrhea, Constipation, Melena, Hematochezia, Other Symptoms Genitourinary: Denies: Dysuria, Frequency, Incontinence, Hematuria, Retention, Other Symptoms Musculoskeletal: Reports: Shoulder Pain Objective Physical Examination General Exam: Positive: Alert, Cooperative, No Acute Distress Eye Exam: Positive: PERRLA, Negative: Sclera icteric Chest Exam: Positive: Rales, Diminished, Other (PPM noted in left infraclavicular fossa, some swelling around left clavicle; right IJ dialysis cath; right chest central line) Heart Exam: Positive: Rate Normal Telemetry: Positive: No significant arrhythmia, Sinus, Other Telemetry: ( atrial pacing on monitor) Abdomen Exam: Positive: Normal bowel sounds, Soft, Tenderness, Other (obese) Extremity Exam: Positive: Tenderness (left should TTT), Other (large left flank /hip hematoma today extending to left shoulder - improving) Psych Exam: Negative: Oriented x 3 (oriented to person and place) Assessment /Plan Problems (1) Acute respiratory failure with hypoxia Status: Acute Problem Specific Plan: Monitor Clinically, Repeat Tests Problem Text: Likely secondary to fluid overload - decompensated CHF. 2D echo - similar to May 2015 with diastolic dysfunction, pleural effusion noted on this study. Continuing with CPAP. Lasix gtt. (2) Hemorrhagic shock Status: Resolved Response to Treatment: Improving Problem Specific Plan: Monitor Clinically, Repeat Labs, Repeat Tests Problem Text: Secondary to large left flank/hip hematoma - transfuse to keep Hg >8. S/P 10 unit PRBC. Complicated with afib on NOAC (Eliquis). Today is day #6 off Eliquis. S/P 3 units FFP, 1 unit platelets. Off pressors, blood pressures WNL. Leukocytosis - likely reactive, resolved. abx discontinued (3) Shock liver Status: Resolved Problem Specific Plan: Repeat Labs Problem Text: Continues to improve, likely secondary to #1 hemorrhagic shock. Hepatitis panel unremarkable. Liver ultrasound unremarkable. (4) ARABELLA (acute kidney injury) Status: Resolved Discussed With: Country Printer Apprentice Problem Specific Plan: Consult Specialist, Repeat Labs Problem Text: Off CVVHDF. (5) Acute blood loss anemia Status: Resolved Response to Treatment: Improving, Progressing Problem Specific Plan: Monitor Clinically, Repeat Labs Problem Text: Secondary to hemorrhage/hematoma from fall. Appears to be stable. S/P 10 units PRBC. As above, transfuse to keep Hgb > 8. Thrombocytopenia resolved. (6) Diabetes Status: Chronic Discussed With: Patient Problem Specific Plan: Repeat Labs (7) Afib Status: Chronic Problem Specific Plan: Monitor Clinically Problem Text: Rate controlled. Was anti-coagulated with NOAC. Discontinued secondary to hemorrhagic shock. (8) Presence of permanent cardiac pacemaker Status: Chronic Problem Specific Plan: Monitor Clinically Problem Text: Paced rhythm. Reason for PPM not clear, possibly SSS. Abnormal spikes noted on buffing turner and counter- cardiology consultation pending for further evaluation. (9) Mental retardation Status: Chronic (10) HTN (hypertension) (11) Dyslipidemia (12) Fall (on) (from) other stairs and steps, initial encounter Status: Acute Discussed With: Patient Problem Specific Plan: Consult Specialist Problem Text: Appears to have been mechanical fall as per patient recollection , however she is questionable historian. Left clavicular fracture noted on imaging, ortho consultation pending. Plan/VTE VTE Prophylaxis Ordered?: Yes Plan/Urinary Catheter Reason for insertion/continuin: Critical Pt monitoring Plan IVF: Discontinue Diet: Continue Current Activity: Bedrest, Advance Medications: Replete Electrolytes IV Diagnostics: Repeat Labs in AM Anticipated Discharge: Home Advance Directives: HCP Still requiring CPAP to maintain adequate O2 sats, was desaturating yesterday off CPAP. Hg stable, thrombocytopenia resolved. Still to determine regarding resuming her NOAC for afib. She has remained sinus rhythm during hospital stay. Still on lasix gtt. VS, I&O, 24H, Fishbone Vital Signs/I&O Vital Signs Date Time Temp Pulse Resp B/P (MAP) Pulse Ox O2 Delivery O2 Flow Rate FiO2 11/13/16 04:00 97.0 60 24 111/68 (82) 100 NIPPV (BIPAP/CPAP) 40 11/12/16 16:21 6.0 I&O- Last 24 Hours up to 6 AM 11/13/16 05:59 Intake Total 815 ml Output Total 3835 ml Balance -3020 ml Laboratory Data 24H LABS Laboratory Tests 2 11/12/16 12:24: Bedside Glucose (Misc Panel) 231H 11/12/16 18:09: Bedside Glucose (Misc Panel) 278H 11/12/16 18:14: Anion Gap 7L, Glomerular Filtration Rate 55.5, Blood Urea Nitrogen 24H, Creatinine 1.05H, Sodium Level 134L, Potassium Level 3.8#, Chloride Level 93L, Carbon Dioxide Level 34H, Calcium Level 6.6L, Magnesium Level 1.5L 11/12/16 23:53: Bedside Glucose (Misc Panel) 228H 11/13/16 04:13: White Blood Count 8.8, Red Blood Count 2.97L, Hemoglobin 8.9L, Hematocrit 26.9L , Mean Corpuscular Volume 90.6, Mean Corpuscular Hemoglobin 30.1, Mean Corpuscular Hemoglobin Concent 33.2, Red Cell Distribution Width 15.9H, Platelet Count 150, Neutrophils (%) (Auto) 80.9H, Lymphocytes (%) (Auto) 7.1L, Monocytes (%) (Auto) 5.9H, Eosinophils (%) (Auto) 2.6, Basophils (%) (Auto) 0.3 , Neutrophils # (Auto) 7.1, Lymphocytes # (Auto) 0.9L, Monocytes # (Auto) 0.5, Eosinophils # (Auto) 0.2, Basophils # (Auto) 0.0, Large Unclassified Cells % 3.2 , Large Unclassified Cells # 0.3, Prothrombin Time 13.8, Prothromb Time International Ratio 1.05, Anion Gap 4L, Glomerular Filtration Rate 58.7, Blood Urea Nitrogen 22H, Creatinine 1.00, Sodium Level 137, Potassium Level 3.5, Chloride Level 94L, Carbon Dioxide Level 39H, Calcium Level 7.2L, Aspartate Amino Transf (AST/SGOT) 45H, Alanine Aminotransferase (ALT/SGPT) 352H, Alkaline Phosphatase 73, Total Bilirubin 1.4H, Total Protein 5.3L, Albumin 2.1L, Magnesium Level 1.5L, Albumin/Globulin Ratio 0.66L 11/13/16 06:11: Bedside Glucose (Misc Panel) 239H CBC/BMP Laboratory Tests 11/12/16 18:14 Calcium Level 6.6 L 11/13/16 04:13 Calcium Level 7.2 L, Red Blood Count 2.97 L, Mean Corpuscular Volume 90.6, Mean Corpuscular Hemoglobin 30.1, Mean Corpuscular Hemoglobin Concent 33.2, Red Cell Distribution Width 15.9 H, Neutrophils (%) (Auto) 80.9 H, Lymphocytes (%) (Auto ) 7.1 L, Monocytes (%) (Auto) 5.9 H, Eosinophils (%) (Auto) 2.6, Basophils (%) ( Auto) 0.3, Neutrophils # (Auto) 7.1, Lymphocytes # (Auto) 0.9 L, Monocytes # ( Auto) 0.5, Eosinophils # (Auto) 0.2, Basophils # (Auto) 0.0, Aspartate Amino Transf (AST/SGOT) 45 H, Alanine Aminotransferase (ALT/SGPT) 352 H, Alkaline Phosphatase 73, Total Bilirubin 1.4 H, Total Protein 5.3 L, Albumin 2.1 L Microbiology Microbiology 11/07/16 Blood Culture - Final, Complete NO GROWTH AFTER 5 DAYS 11/07/16 Blood Culture - Final, Complete NO GROWTH AFTER 5 DAYS 11/10/16 MRSA Screen - Final, Complete 11/07/16 Urine Culture - Final, Complete Escherichia Coli RUBI CARTY MD Nov 13, 2016 07:48
[2016-11-13 08:00] VITALS: BP 112/67
[2016-11-13] MEDS ORDERED: MAG SULF 1GM/100ML (MAG RUN) 1 GM in APPROPRIATE DILUENT 1 EA IV ONE (08:00)
[2016-11-13] MEDS ORDERED: POTASSIUM CHLORIDE 10 MEQ SR TABLET PO ONE (08:00)
[2016-11-13] MEDS: DOCUSATE SODIUM 100 MG CAP PO SCH ×2 (08:32→20:17)
[2016-11-13] MEDS: SANTYL OINT 30GM TOP SCH (08:32)
--- NOTE | 2016-11-13 10:42 | IPN ---
DATE: 11/13/2016 Ms. Gongora is seen this morning on her bedside. She is already off BiPAP morning and looks quite comfortable. She denies any dyspnea or chest pain and has been using oxygen via nasal cannula. She denies any nausea, vomiting or abdominal pain. On physical examination, temperature 98.4 degrees Fahrenheit, heart rate 62 per minute and respiratory rate 16 per minute. Blood pressure 112/67 mmHg and oxygen saturation 99% on 4 liters oxygen. Intake and output records from yesterday showed total intake 885 and output 3510. In the last 3 days, she has been in negative fluid balance of about 11 liters. Her head is atraumatic. Neck is supple and jugular venous distention (JVD) is difficult to be assessed due to presence of central lines in her neck veins. There are large areas of ecchymosis on her left shoulder and upper chest area. Heart sounds are regular and lungs with diminished breath sounds and bibasilar rales at dependent parts. Abdomen soft and nontender and bowel sounds are normal. Extremities have no cyanosis or clubbing. Skin has no rash or ulcers. Peripheral edema is now only about 1+. Neurologically, she is awake and responds to questions appropriately. Today's labs show WBC count 8.8, hemoglobin 8.9 and hematocrit 26.9. Platelets 150. Sodium 137 and potassium 3.5. Chloride 94, CO2 of 39, BUN 22 and creatinine 1.0. Glucose 176 and calcium 7.2. Magnesium is 1.5 and albumin 2.1. PROBLEMS: 1. Acute renal failure. The patient has good urine output and kidney function continues to improve. No further dialysis is needed. 2. Respiratory failure with hypervolemia. Volume status has improved significantly. She is about 11 liters negative fluid balance in the last 3 days. I will stop her IV Lasix drip now and continue to monitor. She is already off BiPAP. This morning's chest x-ray is reviewed and looks much improved. We will use Lasix only now on an as-needed basis. 3. Hypokalemia. Potassium level is still borderline at best. IV Lasix is being stopped and 40 mEq of potassium chloride is being given. Electrolytes will be checked again tomorrow morning. 4. Anemia. Her anemia is stable at present and no intervention is indicated. She has received multiple transfusions; however, has been doing well now for the last several days.
[2016-11-13 12:00] VITALS: BP 115/63
--- NOTE | 2016-11-13 15:14 | REP ---
AP PORTABLE CHEST: 11/13/2016. Comparison: 11/11/2016, 11/10/2016. Clinical history: CHF, respiratory failure. Findings. Dual lead pacer over the left midchest with leads in the right atrium and right ventricle, unchanged. There is a right jugular catheter again seen. There is some improvement in the vascular congestion and engorgement in the perihilar upper lung zones. Less vascular congestion and alveolar edema in the bases but still some vascular redistribution and interstitial edema present. Small effusions difficult to exclude. Heart size mildly enlarged. Aorta is tortuous. Airway is intact. Bones demineralized. There are degenerative changes of shoulders and spine. Impression: 1. Some improvement in the pulmonary edema seen on the previous studies. A dual lead pacer, indwelling right jugular catheter noted with the tip in the SVC above the right atrium. 2. Improvement in the vascular congestion and alveolar edema as described. Persistence of interstitial edema and probable small effusions. Signed by Chu Lynn MD 11/14/2016 03:52 P
[2016-11-13 16:00] VITALS: BP 142/67
[2016-11-13] MEDS ORDERED: HumaLOG INSULIN (NovoLOG) PER UNIT SC SCH (17:30)
[2016-11-13] MEDS: ACETAMINOPHEN TAB 650MG DOSE (2X325MG) PO PRN (19:28)
[2016-11-13 20:00] VITALS: BP 118/76
[2016-11-14] VITALS (8 sets, daily range): BP systolic 104–139; BP diastolic 59–75
[2016-11-14 05:09] LABS: BASO % 0.3 % (0.0-1.0); EOS # 0.2 K/mm3 (0.0-0.50); EOS % 2.5 % (0.0-3.0); LARGE UNSTAINED CELL # 0.2 K/mm3 (0.0-0.4); LARGE UNSTAINED CELL % 3.4 % (0.0-4.0); LYMPH # 0.9 K/mm3 (1.5-4.5); LYMPH % 9.5 % (24.0-44.0); MEAN CORPUSCULAR HEMOGLOBIN 30.5 pg (27.0-33.0); MEAN CORPUSCULAR HGB CONC 33.1 g/dl (32.0-36.5); MEAN CORPUSCULAR VOLUME 92.3 fl (80.0-96.0); MONO # 0.5 K/mm3 (0.0-0.8); MONO % 7.2 % (0.0-5.0); NEUTROPHILS # 5.5 K/mm3 (1.8-7.7); NEUTROPHILS % 77.1 % (36.0-66.0); PLATELET COUNT, AUTOMATED 160 k/mm3 (150-450); RED CELL DISTRIBUTION WIDTH 15.8 % (11.5-14.5); WHITE BLOOD COUNT 7.1 K/mm3 (4.0-10.0)
[2016-11-14 05:25] LABS: INR 1.07
[2016-11-14 05:31] LABS: ALBUMIN/GLOBULIN RATIO 0.67 (1.00-1.93); ALKALINE PHOSPHATASE 74 U/L (45-117); ALT/SGPT 238 U/L (12-78); ANION GAP 7 MEQ/L (8-16); AST/SGOT 30 U/L (15-37); BILIRUBIN,TOTAL 1.5 MG/DL (0.2-1.0); BLOOD UREA NITROGEN 22 MG/DL (7-18); CALCIUM LEVEL 6.9 MG/DL (8.8-10.2); CARBON DIOXIDE LEVEL 33 MEQ/L (21-32); CHLORIDE LEVEL 87 MEQ/L (98-107); CREATININE FOR GFR 0.79 MG/DL (0.55-1.02); GLOMERULAR FILTRATION RATE > 60.0 (>45); GLUCOSE, FASTING 169 MG/DL (80-110)
[2016-11-14 05:44] LABS: SODIUM LEVEL 127 MEQ/L (136-145)
[2016-11-14] MEDS: HumaLOG INSULIN (NovoLOG) PER UNIT SC SCH ×4 (07:30→20:32)
[2016-11-14] MEDS: DOCUSATE SODIUM 100 MG CAP PO SCH ×3 (09:00→20:38)
[2016-11-14] MEDS: SANTYL OINT 30GM TOP SCH (10:18)
[2016-11-14 11:07] LABS: ANION GAP 7 MEQ/L (8-16); BLOOD UREA NITROGEN 20 MG/DL (7-18); CARBON DIOXIDE LEVEL 33 MEQ/L (21-32); CHLORIDE LEVEL 86 MEQ/L (98-107); GLOMERULAR FILTRATION RATE > 60.0 (>45); GLUCOSE, FASTING 135 MG/DL (80-110); POTASSIUM SERUM 3.8 MEQ/L (3.5-5.1); SODIUM LEVEL 126 MEQ/L (136-145)
[2016-11-14 11:48] LABS: MAGNESIUM LEVEL 1.4 MG/DL (1.8-2.4)
--- NOTE | 2016-11-14 12:06 | IPNPDOC ---
Subjective Date Seen The patient was seen on 11/14/16. Subjective Chief Complaint/HPI The patient is a 66-year-old female admitted with a reason for visit of Clavicular Fracture, Hematoma. Events since last encounter Patient states she feels ok on exam. Has no complaints. Has not had much to eat. The nurse states that she has tried to feed patient, but does not eat much. Constitutional: Denies: Chills, Fever Eyes: Denies: Pain Skin: Denies: Rash, Lesions Objective Physical Examination General Exam: Positive: Alert, Cooperative, No Acute Distress Eye Exam: Positive: PERRLA, Negative: Sclera icteric Chest Exam: Positive: Rales, Diminished, Other (PPM noted in left infraclavicular fossa, some swelling around left clavicle; right IJ dialysis cath; right chest central line) Heart Exam: Positive: Rate Normal Telemetry: Positive: No significant arrhythmia, Sinus, Other Telemetry: ( atrial pacing on monitor) Abdomen Exam: Positive: Normal bowel sounds, Soft, Tenderness, Other (obese) Extremity Exam: Positive: Tenderness (left should TTT), Other (large left flank /hip hematoma today extending to left shoulder - improving) Skin Exam: Positive: Other skin issue (diffuse brusing across upper chest. ) Psych Exam: Negative: Oriented x 3 (oriented to person and place) Assessment /Plan Problems (1) Acute respiratory failure with hypoxia Status: Acute Problem Specific Plan: Monitor Clinically, Repeat Tests Problem Text: Likely secondary to fluid overload - decompensated CHF. 2D echo - similar to May 2015 with diastolic dysfunction, pleural effusion noted on this study. Patient did not wear CPAP overnight. Was on nasal canula. Maintained oxygen saturation. Lasix gtt. (2) Traumatic hemorrhagic shock Status: Resolved Response to Treatment: Improving Problem Specific Plan: Monitor Clinically, Repeat Labs, Repeat Tests Problem Text: Secondary to large left flank/hip hematoma - transfuse to keep Hg >8. S/P 10 unit PRBC. Complicated with afib on NOAC (Eliquis). Today is day #6 off Eliquis. S/P 3 units FFP, 1 unit platelets. Hgb has been stable. Off pressors, blood pressures WNL. Leukocytosis - likely reactive, resolved. abx discontinued (3) Shock liver Status: Resolved Problem Specific Plan: Repeat Labs Problem Text: Continues to improve, likely secondary to #1 hemorrhagic shock. Hepatitis panel unremarkable. Liver ultrasound unremarkable. (4) ARABELLA (acute kidney injury) Status: Resolved Discussed With: Franchise Sales Director Problem Specific Plan: Consult Specialist, Repeat Labs Problem Text: Off CVVHDF. Being seen by Nephrology, Dr. Stanford. Appreciate his assistance in management of this patient. (5) Acute blood loss anemia Status: Resolved Response to Treatment: Improving, Progressing Problem Specific Plan: Monitor Clinically, Repeat Labs Problem Text: Secondary to hemorrhage/hematoma from fall. Appears to be stable. S/P 10 units PRBC. As above, transfuse to keep Hgb > 8. Thrombocytopenia resolved. (6) Diabetes Status: Chronic Discussed With: Patient Problem Specific Plan: Repeat Labs Problem Text: Patient is on insulin and insulin with meals, sliding scale. On liquid diet with ensure. Continue advancing as tolerated. (7) Afib Status: Chronic Problem Specific Plan: Monitor Clinically Problem Text: Rate controlled. Was anti-coagulated with NOAC. Discontinued secondary to hemorrhagic shock. (8) Presence of permanent cardiac pacemaker Status: Chronic Problem Specific Plan: Monitor Clinically Problem Text: Paced rhythm. Reason for PPM not clear, possibly SSS. Abnormal spikes noted on fisher seal- cardiology consultation pending for further evaluation. (9) Mental retardation Status: Chronic (10) HTN (hypertension) Problem Specific Plan: Monitor Clinically (11) Dyslipidemia (12) Fall (on) (from) other stairs and steps, initial encounter Status: Acute Discussed With: Patient Problem Specific Plan: Consult Specialist Problem Text: Appears to have been mechanical fall as per patient recollection , however she is questionable historian. Left clavicular fracture noted on imaging, ortho consultation pending. Plan/VTE VTE Prophylaxis Ordered?: Yes Plan/Urinary Catheter Reason for insertion/continuin: Critical Pt monitoring Plan IVF: Discontinue Diet: Continue Current Activity: Bedrest, Advance Medications: Replete Electrolytes IV Diagnostics: Repeat Labs in AM Anticipated Discharge: Home Advance Directives: HCP Will transfer to the floor today. Physical therapy has been ordered and they have seen her. Patient is [facility] patient. Cannot return to house she lived in prior to admission. [facility] is working to find new place to live. They hope to have one by . VS, I&O, 24H, Fishbone Vital Signs/I&O Vital Signs Date Time Temp Pulse Resp B/P (MAP) Pulse Ox O2 Delivery O2 Flow Rate FiO2 11/14/16 10:00 61 18 127/68 (87) 98 Nasal Cannula 2.0 11/14/16 08:00 98.1 11/14/16 00:00 40 I&O- Last 24 Hours up to 6 AM 11/14/16 05:59 Intake Total 1720 ml Output Total 2255 ml Balance -535 ml Laboratory Data 24H LABS Laboratory Tests 2 11/13/16 17:06: Bedside Glucose (Misc Panel) 183H 11/13/16 20:13: Bedside Glucose (Misc Panel) 164H 11/14/16 04:52: White Blood Count 7.1, Red Blood Count 2.84L, Hemoglobin 8.7L, Hematocrit 26.2L , Mean Corpuscular Volume 92.3, Mean Corpuscular Hemoglobin 30.5, Mean Corpuscular Hemoglobin Concent 33.1, Red Cell Distribution Width 15.8H, Platelet Count 160, Neutrophils (%) (Auto) 77.1H, Lymphocytes (%) (Auto) 9.5L, Monocytes (%) (Auto) 7.2H, Eosinophils (%) (Auto) 2.5, Basophils (%) (Auto) 0.3 , Neutrophils # (Auto) 5.5, Lymphocytes # (Auto) 0.9L, Monocytes # (Auto) 0.5, Eosinophils # (Auto) 0.2, Basophils # (Auto) 0.0, Large Unclassified Cells % 3.4 , Large Unclassified Cells # 0.2, Prothrombin Time 14.0, Prothromb Time International Ratio 1.07, Anion Gap 7L, Glomerular Filtration Rate > 60.0, Blood Urea Nitrogen 22H, Creatinine 0.79, Sodium Level 127#L, Potassium Level 4.0, Chloride Level 87L, Carbon Dioxide Level 33H, Calcium Level 6.9L, Aspartate Amino Transf (AST/SGOT) 30, Alanine Aminotransferase (ALT/SGPT) 238H, Alkaline Phosphatase 74, Total Bilirubin 1.5H, Total Protein 5.0L, Albumin 2.0L , Albumin/Globulin Ratio 0.67L 11/14/16 10:33: Anion Gap 7L, Glomerular Filtration Rate > 60.0, Blood Urea Nitrogen 20H, Creatinine 0.80, Sodium Level 126L, Potassium Level 3.8, Chloride Level 86L, Carbon Dioxide Level 33H, Calcium Level 7.0L, Magnesium Level 1.4L CBC/BMP Laboratory Tests 11/14/16 04:52 Red Blood Count 2.84 L, Mean Corpuscular Volume 92.3, Mean Corpuscular Hemoglobin 30.5, Mean Corpuscular Hemoglobin Concent 33.1, Red Cell Distribution Width 15.8 H, Neutrophils (%) (Auto) 77.1 H, Lymphocytes (%) (Auto ) 9.5 L, Monocytes (%) (Auto) 7.2 H, Eosinophils (%) (Auto) 2.5, Basophils (%) ( Auto) 0.3, Neutrophils # (Auto) 5.5, Lymphocytes # (Auto) 0.9 L, Monocytes # ( Auto) 0.5, Eosinophils # (Auto) 0.2, Basophils # (Auto) 0.0, Calcium Level 6.9 L , Aspartate Amino Transf (AST/SGOT) 30, Alanine Aminotransferase (ALT/SGPT) 238 H, Alkaline Phosphatase 74, Total Bilirubin 1.5 H, Total Protein 5.0 L, Albumin 2.0 L 11/14/16 10:33 Calcium Level 7.0 L Microbiology Microbiology 11/07/16 Blood Culture - Final, Complete NO GROWTH AFTER 5 DAYS 11/07/16 Blood Culture - Final, Complete NO GROWTH AFTER 5 DAYS 11/10/16 MRSA Screen - Final, Complete 11/07/16 Urine Culture - Final, Complete Escherichia Coli GME ATTESTATION GME ATTESTATION I have both independently examined this patient as well as reviewed the dictated note. I have discussed in detail with the resident the findings and plan of treatment as documented in the residents note. I will continue to follow the patient and offer further guidance to the patients care as necessary during this hospital stay. RUBI GODINEZ DO Nov 14, 2016 12:06 ERLINDA STEPHENS MD Nov 20, 2016 18:08
[2016-11-14] MEDS: KCL 20MEQ in NS 1000ML 1,000 ML IV SCH (12:15)
--- NOTE | 2016-11-14 14:35 | IPN ---
DATE: 11/14/2016 Mrs. Gongora is seen this morning on her bedside. She is feeling much better today. She has been off BiPap and currently using oxygen via nasal cannula. She has been diuresed and dialyzed over last few days. Her volume status has improved significantly. She has been 13 liters negative fluid balance over the last 4 days. She denies any nausea, vomiting, fever or chills. PHYSICAL EXAMINATION: Temperature 97.3 degrees Fahrenheit, heart rate 60 per minute and respiratory rate 18 per minute. Blood pressure 123/63 mmHg and oxygen saturation 98% on 2 liters oxygen. Intake and output records from yesterday showed total intake 1400 and output 2980 mL. She has a hemodialysis catheter in right internal jugular vein. Head is atraumatic. Ears, nose and throat are unremarkable. Neck is supple and jugular venous distention (JVD) is difficult to be assessed. She has large area of ecchymosis on her left shoulder and upper chest area on the left side. Heart sounds are regular and lungs sound much improved with slightly diminished breath sounds at bases. Abdomen is soft and nontender. Bowel sounds are normal. Extremities have no cyanosis or clubbing. Peripheral edema has improved significantly. Neurologically, she is much more alert and responsive now. Today's labs show sodium 127 and potassium 4.0. A repeat chemistry showed a sodium level 126 and potassium 3.8. CO2 33 and chloride 86. BUN is 20 and creatinine 0.80. Calcium level is 7.0. Hemoglobin is 8.7 and hematocrit 26.2. PROBLEMS: 1. Hyponatremia. She has developed significant hyponatremia over the last 24 hours. Yesterday her sodium was reported at 137. IV Lasix drip has already been stopped. I will give her gentle IV hydration with normal saline and recheck her electrolytes. We will also add potassium chloride in the IV fluid to maintain her potassium level at about 4.0. 2. Acute renal failure with volume overload. Her kidney function has improved. Does not need dialysis anymore and dialysis catheter is being removed. Her volume status has also improved significantly and in fact have now caused hyponatremia with aggressive diuresis. She will be given gentle hydration for the next 24 hours and electrolytes will be repeated. 3. Hypomagnesemia. Her last magnesium level was 1.5 yesterday. I will recheck her magnesium level again today and replace magnesium if indicated. 4. Acute blood loss anemia. Her anemia has been stable and does not need any intervention at this point. DISPOSITION: From a renal standpoint, the patient can be transferred out of intensive care unit. Dictation dictated by Dr. Hien DOWNS
[2016-11-15 02:00] VITALS: BP 120/70
[2016-11-15] MEDS: KCL 20MEQ in NS 1000ML 1,000 ML IV SCH ×2 (04:03→21:29)
[2016-11-15 06:00] VITALS: BP 129/68
[2016-11-15 07:09] LABS: MEAN CORPUSCULAR HEMOGLOBIN 30.1 pg (27.0-33.0); MEAN CORPUSCULAR HGB CONC 32.5 g/dl (32.0-36.5); MEAN CORPUSCULAR VOLUME 92.7 fl (80.0-96.0); PLATELET COUNT, AUTOMATED 187 k/mm3 (150-450); WHITE BLOOD COUNT 8.3 K/mm3 (4.0-10.0)
[2016-11-15 07:25] LABS: ANION GAP 8 MEQ/L (8-16); BLOOD UREA NITROGEN 19 MG/DL (7-18); CALCIUM LEVEL 7.3 MG/DL (8.8-10.2); CARBON DIOXIDE LEVEL 28 MEQ/L (21-32); CHLORIDE LEVEL 90 MEQ/L (98-107); CREATININE FOR GFR 0.73 MG/DL (0.55-1.02); GLOMERULAR FILTRATION RATE > 60.0 (>45); GLUCOSE, FASTING 193 MG/DL (80-110); MAGNESIUM LEVEL 1.5 MG/DL (1.8-2.4); POTASSIUM SERUM 4.1 MEQ/L (3.5-5.1); SODIUM LEVEL 126 MEQ/L (136-145)
[2016-11-15 07:38] LABS: EOSINOPHILS 1 % (0-5); HYPOCHROMASIA 1+; POLYCHROMASIA 1+
[2016-11-15] MEDS: DOCUSATE SODIUM 100 MG CAP PO SCH ×2 (07:43→20:26)
[2016-11-15] MEDS: SANTYL OINT 30GM TOP SCH (07:43)
[2016-11-15] MEDS: MAG SULF 1GM/100ML (MAG RUN) 1 GM in APPROPRIATE DILUENT 1 EA IV SCH ×2 (07:43→09:17)
[2016-11-15] MEDS: HumaLOG INSULIN (NovoLOG) PER UNIT SC SCH ×4 (07:43→20:59)
--- NOTE | 2016-11-15 08:53 | IPNPDOC ---
Subjective Date Seen The patient was seen on 11/15/16. Subjective Chief Complaint/HPI The patient is a 66-year-old female admitted with a reason for visit of Clavicular Fracture, Hematoma. Events since last encounter No complaint this morning Looking forward to breakfast No issues noted by night staff Objective Physical Examination General Exam: Positive: Alert, Cooperative, No Acute Distress Eye Exam: Positive: PERRLA, Negative: Sclera icteric Chest Exam: Positive: Rales, Diminished, Negative: Clear to auscultation Heart Exam: Positive: Rate Normal Telemetry: Positive: No significant arrhythmia, Sinus, Other Telemetry: ( atrial pacing on monitor) Abdomen Exam: Positive: Normal bowel sounds, Soft, Tenderness, Other (obese) Extremity Exam: Positive: Tenderness (left should TTT), Other (large left flank /hip hematoma today extending to left shoulder) Skin Exam: Positive: Other skin issue (bruising at right eye, old appearing, as well as upper chest, [place] left clavicular region) Psych Exam: Negative: Oriented x 3 (oriented to person and place) Assessment /Plan Problems (1) Acute respiratory failure with hypoxia Status: Acute Problem Specific Plan: Monitor Clinically, Repeat Tests Problem Text: Likely secondary to fluid overload - decompensated CHF. 2D echo - similar to May 2015 with diastolic dysfunction, pleural effusion noted on this study. Fluid status being managed br Dr. Stanford. (2) Hemorrhagic shock Status: Resolved Response to Treatment: Improving Problem Specific Plan: Monitor Clinically, Repeat Labs, Repeat Tests Problem Text: Secondary to large left flank/hip hematoma - transfuse to keep Hg >8. S/P 10 unit PRBC. Complicated with afib on NOAC (Eliquis). Today is day #7 off Eliquis. S/P 3 units FFP, 1 unit platelets. Hgb has been stable. Off pressors, blood pressures WNL. Leukocytosis - likely reactive, resolved. abx discontinued (3) Shock liver Status: Resolved Problem Specific Plan: Repeat Labs Problem Text: Resolved, likely secondary to #1 hemorrhagic shock. Hepatitis panel unremarkable. Liver ultrasound unremarkable. (4) ARABELLA (acute kidney injury) Status: Resolved Discussed With: Crimping Machine Operator Problem Specific Plan: Consult Specialist, Repeat Labs Problem Text: Off CVVHDF. Being seen by Nephrology, Dr. Stanford. Appreciate his assistance in management of this patient. Has developing hyponatremia and hypomagnesemia (5) Acute blood loss anemia Status: Resolved Response to Treatment: Improving, Progressing Problem Specific Plan: Monitor Clinically, Repeat Labs Problem Text: Secondary to hemorrhage/hematoma from fall. Appears to be stable. S/P 10 units PRBC. As above, transfuse to keep Hgb > 8. Thrombocytopenia resolved. (6) Diabetes Status: Chronic Discussed With: Patient Problem Specific Plan: Repeat Labs Problem Text: Patient is on insulin and insulin with meals, sliding scale. Tolerating diet with ensure. Continue advancing as tolerated. (7) Afib Status: Chronic Problem Specific Plan: Monitor Clinically Problem Text: Rate controlled. Was anti-coagulated with NOAC. Discontinued secondary to hemorrhagic shock. (8) Presence of permanent cardiac pacemaker Status: Chronic Problem Specific Plan: Monitor Clinically Problem Text: Reason for PPM not clear, possibly SSS. (9) Mental retardation Status: Chronic (10) HTN (hypertension) Problem Specific Plan: Monitor Clinically (11) Dyslipidemia (12) Fall (on) (from) other stairs and steps, initial encounter Status: Acute Discussed With: Patient Problem Specific Plan: Consult Specialist Problem Text: Appears to have been mechanical fall as per patient recollection , however she is questionable historian. Left clavicular fracture noted on imaging, ortho consultation pending. Plan/VTE VTE Prophylaxis Ordered?: Yes Plan/Urinary Catheter Reason for insertion/continuin: Critical Pt monitoring Plan IVF: Discontinue Diet: Continue Current Activity: Bedrest, Advance Medications: Replete Electrolytes IV Diagnostics: Repeat Labs in AM Anticipated Discharge: Home Advance Directives: HCP VS, I&O, 24H, Fishbone Vital Signs/I&O Vital Signs Date Time Temp Pulse Resp B/P (MAP) Pulse Ox O2 Delivery O2 Flow Rate FiO2 11/15/16 06:00 98.6 60 14 129/68 (88) 97 Nasal Cannula 2.0 11/14/16 00:00 40 I&O- Last 24 Hours up to 6 AM 11/15/16 06:00 Intake Total 1440 ml Output Total 1255 ml Balance 185 ml Laboratory Data 24H LABS Laboratory Tests 2 11/14/16 10:33: Anion Gap 7L, Glomerular Filtration Rate > 60.0, Blood Urea Nitrogen 20H, Creatinine 0.80, Sodium Level 126L, Potassium Level 3.8, Chloride Level 86L, Carbon Dioxide Level 33H, Calcium Level 7.0L, Magnesium Level 1.4L 11/14/16 11:49: Bedside Glucose (Misc Panel) 156H 11/14/16 16:34: Bedside Glucose (Misc Panel) 348H 11/14/16 19:39: Bedside Glucose (Misc Panel) 370H 11/15/16 06:44: Neutrophils 65, Lymphocytes (Manual) 16, Monocytes (Manual) 8, Eosinophils ( Manual) 1, Metamyelocytes 4H, Myelocytes 4H, Promyelocytes 1H, Atypical Lymphocytes 1, Platelet Estimate NORMAL, Polychromasia 1+, Hypochromasia 1+, Anion Gap 8, Glomerular Filtration Rate > 60.0, Blood Urea Nitrogen 19H, Creatinine 0.73, Sodium Level 126L, Potassium Level 4.1, Chloride Level 90L, Carbon Dioxide Level 28, Calcium Level 7.3L, Magnesium Level 1.5L CBC/BMP Laboratory Tests 11/14/16 10:33 Calcium Level 7.0 L 11/15/16 06:44 Calcium Level 7.3 L, Red Blood Count 3.08 L, Mean Corpuscular Volume 92.7, Mean Corpuscular Hemoglobin 30.1, Mean Corpuscular Hemoglobin Concent 32.5, Red Cell Distribution Width 16.0 H Microbiology Microbiology 11/07/16 Blood Culture - Final, Complete NO GROWTH AFTER 5 DAYS 11/07/16 Blood Culture - Final, Complete NO GROWTH AFTER 5 DAYS 11/10/16 MRSA Screen - Final, Complete 11/07/16 Urine Culture - Final, Complete Escherichia Coli ERLINDA STEPHENS MD Nov 15, 2016 08:53
[2016-11-15] MEDS: ACETAMINOPHEN TAB 650MG DOSE (2X325MG) PO PRN ×2 (11:48→21:29)
[2016-11-15 14:00] VITALS: BP 157/87
--- NOTE | 2016-11-15 18:01 | IPN ---
DATE: 11/15/2016 Mrs. Gongora is seen this morning on her bedside. She is sitting in the chair at the time of my visit. She is feeling well and denies any complaints. She has no nausea, vomiting, dyspnea, or chest pain. She is currently not using any oxygen. PHYSICAL EXAMINATION: Temperature 98.6 degrees Fahrenheit, heart rate 60 per minute, respiratory rate 14 per minute, blood pressure 129/68 mm of mercury, and oxygen saturation 97% on 2 liters oxygen. Head is atraumatic. Ears, nose, and throat are unremarkable. Neck is supple and without jugular venous distention (JVD) or thyroid enlargement. Dialysis catheter has been removed from right internal jugular vein. Heart sounds are regular and lungs with slightly diminished breath sounds bilaterally. She has large area of ecchymosis on her left shoulder, chest, and torso. Abdomen is soft and nontender. Extremities have no cyanosis or clubbing. Neurologically she is awake, alert, and oriented times three. Intake and output records from yesterday show total intake 1740 and output 1005 mL. Today's labs show WBC count 8.3, hemoglobin 9.3, hematocrit 28.5, platelets 187. Sodium 136, potassium 4.1, chloride 90, CO2 of 28, BUN 19, creatinine 0.73, glucose 193, and calcium 7.3. Magnesium level is 1.5 today. PROBLEMS: 1. Acute renal failure. Kidney function has improved to almost normal level. She has good urine output. She has required temporary dialysis, but at this point there is no risk for dialysis, so her dialysis catheter was removed yesterday. 2. Hyponatremia. No change in sodium level since yesterday. She is receiving normal saline at 60 mL per hour, which will be continued. Electrolytes will be checked again tomorrow morning. 3. Hypomagnesemia. Slight improvement since yesterday. I agree with magnesium sulfate 1 gram intravenously. Magnesium level should also be checked again tomorrow morning. 4. Hypervolemia her volume status has improved, and currently she has no peripheral edema. She is tolerating low-dose IV fluid well. 5. Anemia. She did have acute blood loss anemia, which has improved following transfusion, and now it is stable. No intervention is indicated.
[2016-11-15 22:00] VITALS: BP 139/80
[2016-11-16 06:00] VITALS: BP 145/71
[2016-11-16 06:49] LABS: MEAN CORPUSCULAR HEMOGLOBIN 30.5 pg (27.0-33.0); MEAN CORPUSCULAR HGB CONC 33.3 g/dl (32.0-36.5); MEAN CORPUSCULAR VOLUME 91.6 fl (80.0-96.0); PLATELET COUNT, AUTOMATED 213 k/mm3 (150-450); RED CELL DISTRIBUTION WIDTH 16.7 % (11.5-14.5); WHITE BLOOD COUNT 7.4 K/mm3 (4.0-10.0)
[2016-11-16 07:01] LABS: ANION GAP 8 MEQ/L (8-16); BLOOD UREA NITROGEN 13 MG/DL (7-18); CALCIUM LEVEL 7.4 MG/DL (8.8-10.2); CARBON DIOXIDE LEVEL 26 MEQ/L (21-32); CHLORIDE LEVEL 93 MEQ/L (98-107); CREATININE FOR GFR 0.65 MG/DL (0.55-1.02); GLOMERULAR FILTRATION RATE > 60.0 (>45); GLUCOSE, FASTING 196 MG/DL (80-110); POTASSIUM SERUM 4.2 MEQ/L (3.5-5.1); SODIUM LEVEL 127 MEQ/L (136-145)
[2016-11-16 07:48] LABS: EOSINOPHILS 3 % (0-5)
[2016-11-16 07:49] LABS: ANISOCYTOSIS 1+
[2016-11-16 08:20] LABS: MAGNESIUM LEVEL 1.8 MG/DL (1.8-2.4)
[2016-11-16] MEDS: HumaLOG INSULIN (NovoLOG) PER UNIT SC SCH ×4 (08:20→21:00)
[2016-11-16] MEDS: DOCUSATE SODIUM 100 MG CAP PO SCH ×2 (09:00→21:00)
--- NOTE | 2016-11-16 09:11 | IPNPDOC ---
Subjective Date Seen The patient was seen on 11/16/16. Subjective Chief Complaint/HPI The patient is a 66-year-old female admitted with a reason for visit of Clavicular Fracture, Hematoma. Events since last encounter No complaint of pain, hungry and thirsty this am, looking forward to breakfast, feels tired, no issues noted by staff Pulmonary: Denies: Dyspnea, Cough Cardiovascular: Denies: Chest Pain Gastrointestinal: Denies: Nausea, Vomiting, Abdominal Pain Objective Physical Examination General Exam: Positive: Alert Eye Exam: Negative: Sclera icteric ENT Exam: Positive: Mucous membr. moist/pink Chest Exam: Positive: Rales, Diminished, Negative: Clear to auscultation Heart Exam: Positive: Rate Normal Abdomen Exam: Positive: Normal bowel sounds, Soft, Tenderness, Other (obese) Extremity Exam: Positive: Tenderness (left should TTT), Other (large left flank /hip hematoma today extending to left shoulder) Skin Exam: Positive: Other skin issue (bruising at right eye, old appearing, as well as upper chest, [place] left clavicular region) Psych Exam: Negative: Oriented x 3 (oriented to person and place) Assessment /Plan Problems (1) Acute respiratory failure with hypoxia Status: Acute Problem Specific Plan: Monitor Clinically, Repeat Tests Problem Text: Likely secondary to fluid overload - decompensated CHF. 2D echo - similar to May 2015 with diastolic dysfunction, pleural effusion noted on this study. Fluid status being managed br Dr. Stanford. (2) Hemorrhagic shock Status: Resolved Response to Treatment: Improving Problem Specific Plan: Monitor Clinically, Repeat Labs, Repeat Tests Problem Text: Secondary to large left flank/hip hematoma - transfuse to keep Hg >8. S/P 10 unit PRBC. Complicated with afib on NOAC (Eliquis). Hgb has been stable. Off pressors, blood pressures WNL. Leukocytosis - likely reactive, resolved. abx discontinued (3) Shock liver Status: Resolved Problem Specific Plan: Repeat Labs Problem Text: Resolved, likely secondary to #1 hemorrhagic shock. Hepatitis panel unremarkable. Liver ultrasound unremarkable. (4) ARABELLA (acute kidney injury) Status: Resolved Discussed With: Display Designer Outside Problem Specific Plan: Consult Specialist, Repeat Labs Problem Text: Off CVVHDF. Being seen by Nephrology, Dr. Stanford. Appreciate his assistance in management of this patient. Has developing hyponatremia and hypomagnesemia (5) Acute blood loss anemia Status: Resolved Response to Treatment: Improving, Progressing Problem Specific Plan: Monitor Clinically, Repeat Labs Problem Text: Secondary to hemorrhage/hematoma from fall. Appears to be stable. S/P 10 units PRBC. As above, transfuse to keep Hgb > 8. Thrombocytopenia resolved. (6) Diabetes Status: Chronic Discussed With: Patient Problem Specific Plan: Repeat Labs Problem Text: Patient is on insulin and insulin with meals, sliding scale. Tolerating diet with ensure. Continue advancing as tolerated. (7) Afib Status: Chronic Problem Specific Plan: Monitor Clinically Problem Text: Rate controlled. Was anti-coagulated with NOAC. Discontinued secondary to hemorrhagic shock. (8) Presence of permanent cardiac pacemaker Status: Chronic Problem Specific Plan: Monitor Clinically Problem Text: Reason for PPM not clear, possibly SSS. (9) Mental retardation Status: Chronic Problem Text: [facility] patient, may benefit from PMR prior to return (10) HTN (hypertension) Problem Specific Plan: Monitor Clinically (11) Dyslipidemia (12) Fall (on) (from) other stairs and steps, initial encounter Status: Acute Discussed With: Patient Problem Specific Plan: Consult Specialist Problem Text: Appears to have been mechanical fall as per patient recollection , however she is questionable historian. I did discuss with [facility] staff Left clavicular fracture noted on imaging, previously discussed with ortho Plan/VTE VTE Prophylaxis Ordered?: Yes Plan/Urinary Catheter Reason for insertion/continuin: Critical Pt monitoring Plan IVF: Discontinue Diet: Continue Current Activity: Bedrest, Advance Medications: Replete Electrolytes IV Diagnostics: Repeat Labs in AM Anticipated Discharge: Home Advance Directives: HCP VS, I&O, 24H, Fishbone Vital Signs/I&O Vital Signs Date Time Temp Pulse Resp B/P (MAP) Pulse Ox O2 Delivery O2 Flow Rate FiO2 11/16/16 06:00 99.0 61 18 145/71 (95) 97 Room Air 11/15/16 08:00 2.0 11/14/16 00:00 40 I&O- Last 24 Hours up to 6 AM 11/16/16 06:00 Intake Total 3380 ml Output Total 200 ml Balance 3180 ml Laboratory Data 24H LABS Laboratory Tests 2 11/15/16 16:35: Bedside Glucose (Misc Panel) 218H 11/15/16 20:13: Bedside Glucose (Misc Panel) 234H 11/16/16 06:27: Neutrophils 70, Lymphocytes (Manual) 20, Monocytes (Manual) 7, Eosinophils ( Manual) 3, Platelet Estimate NORMAL, Anisocytosis 1+, Anion Gap 8, Glomerular Filtration Rate > 60.0, Blood Urea Nitrogen 13, Creatinine 0.65, Sodium Level 127L, Potassium Level 4.2, Chloride Level 93L, Carbon Dioxide Level 26, Calcium Level 7.4L, Magnesium Level 1.8 CBC/BMP Laboratory Tests 11/16/16 06:27 Red Blood Count 2.92 L, Mean Corpuscular Volume 91.6, Mean Corpuscular Hemoglobin 30.5, Mean Corpuscular Hemoglobin Concent 33.3, Red Cell Distribution Width 16.7 H, Calcium Level 7.4 L Microbiology Microbiology 11/07/16 Blood Culture - Final, Complete NO GROWTH AFTER 5 DAYS 11/07/16 Blood Culture - Final, Complete NO GROWTH AFTER 5 DAYS 11/10/16 MRSA Screen - Final, Complete 11/07/16 Urine Culture - Final, Complete Escherichia Coli ERLINDA STEPHENS MD Nov 16, 2016 09:11
[2016-11-16] MEDS: SODIUM CHLORIDE 1 GM TAB PO SCH ×3 (10:00→21:25)
[2016-11-16] MEDS: SANTYL OINT 30GM TOP SCH (10:00)
[2016-11-16 14:00] VITALS: BP 145/73
--- NOTE | 2016-11-16 21:42 | IPN ---
DATE: 11/16/2016 Ms. Gongora is seen this morning on her bedside. She is sleeping in her bed and I woke her up. She answered questions appropriately. She is not short of breath. There is no nausea or vomiting reported. PHYSICAL EXAMINATION: Temperature 99 degrees Fahrenheit, heart rate 60 per minute and respiratory rate 18 per minute. Blood pressure 145/71 mmHg and oxygen saturation 97% on room air. Her head is atraumatic. Neck is supple and without jugular venous distention (JVD) Central lines have been removed. Heart sounds are regular and lungs with diminished breath sounds at bases with poor inspiratory effort. Abdomen: Soft and nontender. Bowel sounds are normal and there is no palpable organomegaly. Extremities have no cyanosis or clubbing. Skin has large area of ecchymosis on her left shoulder, left chest and back. Neurologically she is is appropriate and without a focal deficit. Today's labs show WBC count 7.4, hemoglobin 8.9 and hematocrit 26.7. Platelets 213. Sodium 127 and potassium 4.2. BUN 13 and creatinine 0.65. PROBLEMS: 1. Acute renal failure. Kidney function has improved further. Dialysis catheter has already been removed. No other intervention indicated. 2. Hyponatremia. Only slight improvement in the sodium level noted today. I am stopping her IV normal saline and will put her on oral sodium chloride tablets 1 gram three times a day. Electrolytes will be checked again tomorrow morning. 3. Hypomagnesemia. Magnesium level has also improved with supplement. No intervention is indicated. 4. Anemia. No significant change. We anticipate that her anemia will remain stable now as she has no active bleeding. CBC will be checked again tomorrow morning.
[2016-11-16 22:00] VITALS: BP 135/76
[2016-11-17 06:00] VITALS: BP 126/70
[2016-11-17 06:19] LABS: ANION GAP 8 MEQ/L (8-16); BLOOD UREA NITROGEN 13 MG/DL (7-18); CALCIUM LEVEL 7.3 MG/DL (8.8-10.2); CARBON DIOXIDE LEVEL 24 MEQ/L (21-32); CHLORIDE LEVEL 98 MEQ/L (98-107); CREATININE FOR GFR 0.65 MG/DL (0.55-1.02); GLOMERULAR FILTRATION RATE > 60.0 (>45); GLUCOSE, FASTING 206 MG/DL (80-110); POTASSIUM SERUM 4.3 MEQ/L (3.5-5.1); SODIUM LEVEL 130 MEQ/L (136-145)
[2016-11-17 06:24] LABS: MEAN CORPUSCULAR HEMOGLOBIN 30.9 pg (27.0-33.0); MEAN CORPUSCULAR HGB CONC 32.9 g/dl (32.0-36.5); PLATELET COUNT, AUTOMATED 244 k/mm3 (150-450); RED CELL DISTRIBUTION WIDTH 17.2 % (11.5-14.5); WHITE BLOOD COUNT 8.6 K/mm3 (4.0-10.0)
[2016-11-17] MEDS ORDERED: NORCOTAB PO (06:32)
[2016-11-17] MEDS ORDERED: INSUHUMDS SC ×2 (06:32)
[2016-11-17] MEDS ORDERED: COLA100C3 PO (06:32)
[2016-11-17] MEDS ORDERED: SODI1TA PO ×2 (06:32→08:56)
[2016-11-17 06:53] LABS: BANDS 1 % (< 11); EOSINOPHILS 1 % (0-5); NUCLEATED RED BLOOD CELL 1 % (0-0)
[2016-11-17 06:54] LABS: ANISOCYTOSIS 1+
[2016-11-17 07:02] LABS: HYPOCHROMASIA 1+
[2016-11-17] MEDS: SANTYL OINT 30GM TOP SCH (08:04)
[2016-11-17] MEDS: SODIUM CHLORIDE 1 GM TAB PO SCH (08:04)
[2016-11-17] MEDS: DOCUSATE SODIUM 100 MG CAP PO SCH (08:05)
[2016-11-17] MEDS: HumaLOG INSULIN (NovoLOG) PER UNIT SC SCH (08:05)
[2016-11-17] MEDS ORDERED: FUROSEMIDE 40 MG TAB PO ONE (11:00)
[2016-11-17] MEDS ORDERED: SODIUM CHLORIDE 1 GM TAB PO SCH (21:00)
--- NOTE | 2016-11-18 06:04 | DSES ---
DATE OF ADMISSION: 11/07/2016 DATE OF DISCHARGE: 11/17/2016 Specialists involved in care included Dr. Stanford, Dr. Morgan, Dr. Aguilar, Adolfo Sanchez, Dr. Skinner, Dr. Helm. Procedures performed during the stay included insertion of a right subclavian central line. DISCHARGE DIAGNOSES: 1. Acute respiratory failure with hypoxia. 2. Congestive heart failure, diastolic dysfunction. 3. Pleural effusion. 4. Hemorrhagic shock secondary to large left flank/hip hematoma complicated with the use of oral anticoagulants. 5. Shock liver. 6. Acute kidney injury. 7. Acute blood loss anemia. 8. Diabetes. 9. Atrial fibrillation. 10. Permanent cardiac pacemaker. 11. Mental retardation. 12. Hypertension. 13. Dyslipidemia. 14. Mechanical fall. 15. Left clavicular fracture. The following is a summary of her presentation: This is a 66-year-old who suffered a fall down a flight of stairs at the [facility] ([facility] residential home. She struck her left hip and shoulder and her head. No loss of consciousness. She had hypotension. Received boluses of fluid. She had a fracture identified at the distal aspect of the left clavicle. She went on to develop hemorrhagic shock requiring transfusion and pressors. During the course of her stay, she received 10 units of packed red blood cells and 3 units of fresh frozen plasma (FFP). She developed hypoxic respiratory failure with pulmonary edema. She was initially on bilevel positive airway pressure (BiPAP) and switched to continuous positive airway pressure (CPAP). She developed acute renal failure and shock liver. She was followed by nephrology, was on a Lasix drip. Began to show improvement, was transferred out of the unit. Transferred to the medical floor where she began to recover slowly and on the day of discharge is thought to be ready for acute rehabilitation. On the day of discharge, temperature is 97.2, pulse 66, respiratory rate 15, blood pressure 126/70, 98% on room air. She is awake, appropriately interactive, no complaints. Breathing is symmetrical and rested. White cell count 8.6, hemoglobin 9.3, platelets of 244. BUN 13, creatinine 0.65. DISCHARGE INSTRUCTIONS: Include the following: - [place] every 4 hours as needed for pain - Colace 100 mg by mouth twice daily - insulin sliding scale - sodium chloride tablets for her hyponatremia, one tablet by mouth twice daily - Tylenol as needed for pain - amiodarone 200 mg by mouth daily - apixaban 5 mg by mouth twice daily, which is being restarted at the time of discharge - aspirin 81 mg by mouth daily - Coreg 3.125 mg by mouth twice daily - Santyl applied to her big toe - Paxil 60 mg by mouth daily at bedtime - simvastatin 20 mg by mouth daily at bedtime We have discontinued calcium and vitamin D, discontinued her Levemir for now, discontinued lisinopril, discontinued loperamide, discontinued magnesium, discontinued metformin, discontinued multivitamin, discontinued oxybutynin, discontinued Risperdal, discontinued spironolactone, and discontinued her previously ordered Bactrim. I have discussed this case by phone with Dr. eBll and suggested daily labs at least for the near term.
== END 2016-11-17 11:30 | DRG 682 ==
LOC: EDBD 20:06 → M ED 23:00 → M ED INP 11-07 03:06 → M ICU 11-07 13:42 → M MS5PR 11-14 13:23
PROVIDERS: ADMIT Surgery; ATTEND Internal Medicine
PROC: 05H533Z Insertion of Infusion Device into Right Subclavian Vein, Percutaneous Approach (ICD-10-PCS; principal; 2016-11-07)
PROC: 02H633Z Insertion of Infusion Device into Right Atrium, Percutaneous Approach (ICD-10-PCS; 2016-11-07)
PROC: 30253N1 (ICD-10-PCS; 2016-11-07)
PROC: 30253K1 (ICD-10-PCS; 2016-11-07)
PROC: 5A1D60Z (ICD-10-PCS; 2016-11-08)
PROC: 30253R1 (ICD-10-PCS; 2016-11-08)
DX: N17.0 Acute kidney failure with tubular necrosis (principal); K72.00 Acute and subacute hepatic failure without coma; T79.4XXA Traumatic shock, initial encounter; J96.01 Acute respiratory failure with hypoxia; I50.33 Acute on chronic diastolic (congestive) heart failure; E87.1 Hypo-osmolality and hyponatremia; N39.0 Urinary tract infection, site not specified; D62 Acute posthemorrhagic anemia; E87.2 Acidosis; J90 Pleural effusion, not elsewhere classified; E46 Unspecified protein-calorie malnutrition; S70.02XA Contusion of left hip, initial encounter; S42.002A Fracture of unspecified part of left clavicle, initial encounter for closed fracture; S00.03XA Contusion of scalp, initial encounter; S30.1XXA Contusion of abdominal wall, initial encounter; I48.2 Chronic atrial fibrillation; E87.5 Hyperkalemia; E11.9 Type 2 diabetes mellitus without complications; I11.0 Hypertensive heart disease with heart failure; E78.5 Hyperlipidemia, unspecified; F71 Moderate intellectual disabilities; R74.0 Nonspecific elevation of levels of transaminase and lactic acid dehydrogenase [LDH]; E66.9 Obesity, unspecified; E83.51 Hypocalcemia; F42.9 Obsessive-compulsive disorder, unspecified; R68.0 Hypothermia, not associated with low environmental temperature; G80.9 Cerebral palsy, unspecified; Y93.89 Activity, other specified; E83.42 Hypomagnesemia; I34.0 Nonrheumatic mitral (valve) insufficiency; Z95.0 Presence of cardiac pacemaker; M54.9 Dorsalgia, unspecified; W10.9XXA Fall (on) (from) unspecified stairs and steps, initial encounter; Y92.098 Other place in other non-institutional residence as the place of occurrence of the external cause; Y99.8 Other external cause status; Z79.01 Long term (current) use of anticoagulants; Z79.82 Long term (current) use of aspirin; Z79.4 Long term (current) use of insulin; Z79.899 Other long term (current) drug therapy; Z79.84 Long term (current) use of oral hypoglycemic drugs

== ENCOUNTER 2016-11-17 08:43 | Inpatient (IN) | payer MEDICARE, MEDICAID ==
[~2016-11-17] VITALS: Ht 132.1 cm; Wt 75.9 kg
[~2016-11-17 08:43] MED LIST changes: +ACET1TAB17 PO; +BACT800T5 PO; +COLA100C5 PO; +INSUHUMDS SC; +LOPE2CAP PO; -LOPE2TAB PO; -METF1000 PO; +METF10004 PO; +NORCOTAB PO; +OXYB10TA PO; -RISP1TAB41 PO; +RISP1TAB42 PO; +RISP2TAB3 PO; +SANT250O8 TOP; +SODI1TA PO; +TERB250T12 PO; +VITACHTA PO
[2016-11-17] MEDS ORDERED: SODI1TA PO (08:56)
[2016-11-17] MEDS ORDERED: BISACODYL 5 MG TAB PO PRN (09:30)
[2016-11-17] MEDS ORDERED: FLEET ENEMA PR PRN (09:30)
[2016-11-17] MEDS ORDERED: GLUCAGON FOR INJ 1 MG VIAL (J1610) SC PRN (09:45)
[2016-11-17] MEDS ORDERED: DEXTROSE 50% 50 ML SYRINGE IV PRN (09:45)
[2016-11-17] MEDS ORDERED: GLUCOSE 4 GM CHEW TABLET PO PRN (09:45)
[2016-11-17 11:30] VITALS: BP 149/95
[2016-11-17] MEDS: HumaLOG INSULIN (NovoLOG) PER UNIT SC SCH ×3 (12:00→20:17)
[2016-11-17] MEDS ORDERED: METHYLPHENIDATE 5 MG TAB PO SCH (12:00)
[2016-11-17] MEDS: APIXABAN 5 MG TAB (ELIQUIS) PO SCH ×2 (12:55→20:17)
[2016-11-17] MEDS: CARVedilol 3.125 MG TAB PO SCH ×2 (12:56→20:17)
[2016-11-17] MEDS: ASPIRIN 81 MG ENTERIC TAB PO SCH (12:57)
[2016-11-17] MEDS: AMIODARONE 200 MG TAB (PACERONE) PO SCH (12:57)
[2016-11-17] MEDS: SODIUM CHLORIDE 1 GM TAB PO SCH ×2 (14:43→20:17)
[2016-11-17] MEDS: MAGNESIUM CHLORIDE 64 MG TABCR (SLO MAG) PO SCH (14:44)
[2016-11-17] MEDS: ANALGESIC BALM CRM 120 GM TOP SCH ×3 (14:44→20:18)
--- NOTE | 2016-11-17 16:36 | PMRNOTEPD ---
PMR Note Patient is a 58-year-old white female with mental total retardation living at the [facility] prior to recent fall down the steps in the residential center. Patient sustained extensive contusions to the left body and hip region that was exacerbated by her Elliquis anticoagulant use to treat clot risk from her atrial fibrillation. Patient who also has a pacemaker implanted for sick sinus syndrome along with hypertension hyperlipidemia and type 2 diabetes. She is being admitted for trial of the acute intensive rehabilitation 3 hours per day with physical and occupational therapy. Dr. Jiménez will be on [facility] to follow for assistance in medical management. Admission history and physical dictation number is [id number]. RUBI ISABEL MD Nov 17, 2016 16:36
--- NOTE | 2016-11-17 17:51 | IPN ---
DATE: 11/17/2016 Mrs. Gongora is seen this morning on her bedside. She is sitting in the chair at the time of my visit. She denies any dyspnea, chest pain, nausea, or vomiting. Her physical activity is quite limited, and I have been informed that the patient will be transferred to acute rehabilitation floor later today. PHYSICAL EXAMINATION: Temperature 97.2 degrees Fahrenheit, heart rate 66 per minute, respiratory rate 16 per minute, blood pressure 126/70 mm of mercury and oxygen saturation 98% on room air. Her head is atraumatic. Neck is supple and jugular venous distention (JVD) is not elevated sitting upright. She has no oral thrush or ulcers. Large area of ecchymosis on her chest and torso is unchanged. Heart sounds are regular and lungs with moderate bilateral air entry. Has poor inspiratory effort. Abdomen soft and nontender and extremities without any cyanosis or clubbing. Here today has 1+ leg edema bilaterally. Neurologically, she is awake, alert, and oriented. Today's labs show WBC count 8.6, hemoglobin 9.3, and hematocrit 28.3. Sodium 130, potassium 4.3, chloride 98, CO2 of 24, BUN 13, and creatinine 0.65. Glucose 206 and calcium 7.3. PROBLEMS: 1. Acute renal failure. Her kidney function has improved and leveled off. This is probably her baseline kidney function. 2. Hyponatremia. Sodium level improved since yesterday. I am cutting down her oral sodium chloride to 1 gram twice a day. I will also give her one dose of Lasix 40 mg today in view of leg edema. Electrolytes will be checked again tomorrow morning. 3. Generalized weakness and deconditioning. The patient is being transferred to acute rehabilitation floor later today.
--- NOTE | 2016-11-17 19:03 | PMRHPE ---
DATE OF ADMISSION: 11/17/2016 REASON FOR ADMISSION: Debilitation due to trauma with severe hemorrhage, respiratory failure, acute kidney injury. PAST MEDICAL HISTORY: Includes: 1. Moderate mental retardation. 2. Type 2 diabetes mellitus. 3. Atrial fibrillation, on anticoagulation status post pacemaker placement for cardiac regulation. 4. Left clavicle fracture, felt to be subacute to old on x-ray. ALLERGIES: Patient with no known drug allergies. MEDICATIONS: - Colace 100 mg twice a day - insulin sliding scale with Humalog insulin - dextrose, glucose, glucagon as part of hypoglycemic prevention treatment - Dulcolax 5 mg tablet as needed for constipation - Fleet's enema per rectum as needed for constipation - Tylenol 650 mg every 6 hours as needed for pain or fever - sodium chloride 1 gram by mouth twice a day for hyponatremia - Eliquis 5 mg twice a day for atrial fibrillation and deep vein thrombosis (DVT ) and cerebrovascular accident (CVA) prevention - aspirin 81 mg daily for DVT and CVA prevention. - Coreg 3.125 mg every 12 hours for hypertension and cardiac regulation - amiodarone 200 mg daily for hypertension and cardiac regulation - methylsalicylate cream for pain topically HISTORY OF PRESENT ILLNESS: Patient admitted to [facility] on 11/07/2016 after falling down a flight of stairs. The patient was anticoagulated. She had extensive hematoma to the left chest, flank, and hip and had extensive bleed-out and required 10 units of packed red blood cells, 3 units of fresh frozen plasma, and 1 unit of platelets to resuscitate and reverse the effects. Patient has since been working on medically becoming more stabilized and correcting electrolytes and renal function with the acute kidney illness and hypoxic respiratory failure due to the extensive bleed. Patient now felt to be ready to participate in a trial of acute intensive rehabilitation with physical, occupational therapy to regain her prior level of function and return home to the [facility]. PAST SURGICAL HISTORY: Includes: 1. Cholecystectomy. 2. Hysterectomy. 3. Pacemaker placed in 2011 due to sick sinus syndrome. 4. Status post appendectomy and tonsillectomy. 5. Surgery on her toes. FAMILY HISTORY: Noncontributory. REVIEW OF SYSTEMS: Patient poor historian; however, at this time she does note pain complaints throughout the chest from the bruising. Also left abdomen, flank , and hip. Otherwise, some tendency toward feeling tired, which patient is able to overcome and participate in therapy if encouraged. IMAGING STUDIES: Did show large abdominal and pelvic hematoma in the subcutaneous tissue of the left flank and hip area and distal left clavicle fracture. Patient also with some pulmonary edema, which has been clearing and negative CT of the head. PHYSICAL EXAMINATION: Patient is an average-height 66-year-old white female with extensive ecchymoses across the entire chest, especially in the left flank, abdomen, hip region and also down to the left lateral thigh. VITAL SIGNS: Show a temperature of 98.4, blood pressure 149/95, pulse 68, respirations 18, and pulse oximetry 97% on room air. Patient's weight is 73.7 kg on the bed scale today. HEENT: Normocephalic, atraumatic. Patient using glasses for visual correction. Extraocular motions are intact. Pupils are equal, round, reactive to light and accommodation; however, patient does have trouble following directions, such as on eye tracking. Tongue is midline. There is no dysarthria. Speech is rather concrete. The face shows no drooping. LUNGS: Clear in all [place] to auscultation. CORONARY: Shows a regular rate and rhythm with normal S1, S2 and 2/4 bilateral radial pulses. No murmurs, rubs, gallops, or irregularity was appreciated on auscultation. ABDOMEN: Shows mildly obese with extensive ecchymosis found from the left hip and flank across midline. Bowel sounds are present in all quadrants. There is no palpable tenderness, rebound, or masses present. EXTREMITIES: Show extensive hematoma around the left hip but functional range of motion of upper and lower extremities. More ecchymosis on left shoulder than right. NEUROLOGIC: Patient is alert and oriented to self and in general place. Not well oriented to time or situation. Speech, as noted above, is clear, coherent, rather concrete and somewhat slow in generation. Memory not tested. Sensorium shows light touch and vibration intact in bilateral upper and lower extremities. Deep tendon reflexes show 1/4 knee jerk, triceps, ankle jerks. Downgoing toes on plantar stimulation. 2/4 biceps and brachioradialis. One beat of clonus, however , on ankle jerk was noted bilaterally. Balance was not tested for standing. Sitting balance is good minus approximately. Hearing is relatively intact. IMPRESSION: Patient is a pleasant, cooperative 66-year-old white female with life-long cognitive challenges who has had some problems with impulsive behavior throughout her life; however, the combination of atrial fibrillation, Eliquis, and impulsivity appears to have led to her falling down the stairs and have an extensive left-sided bleed that was very difficult to reverse and stop with secondary renal and respiratory problems that have cleared up significantly by now; therefore, patient, who is weaker and less able to get up and locomote that she was previously, does need to progress her activities of daily living (ADLs) and mobility skills to allow her to function safely back at [facility]. Patient is to be moved there to first floor room and not have to do any steps. For now, we will proceed with a trial of acute intensive rehabilitation, including physical and occupational therapy 3 hours per day to address these issues along with rehabilitation nursing and podiatry. I anticipate patient with strong encouragement should be able to do this based on her prior therapy evaluation, especially when the family talked to her and motivated her to participate. I overall anticipate patient's length of stay will be approximately 7 days. 2. Anemia. Patient has progressed well and has a moderate anemia with hemoglobin of 9.3 and hematocrit of 28.6%, MCV of 94, and platelet count of 244,000, which will need to be tracked. Medicine consult has been submitted and Dr. Jiménez notified. 3. Atherosclerotic cardiovascular disease, including sick sinus syndrome, atrial fibrillation, cardiac pacemaker, hypertension, and hyperlipidemia. Will coordinate with medicine on these. Patient at Dr. Jiménez's recommendation on restarting patient's Coreg and amiodarone. I had considered also starting Ritalin for helping heart rate with energy, attention, and concentration for her rehabilitation but will hold off on this until she has been stabilized on the amiodarone and Coreg. We will follow the electrolytes, renal function, and blood counts, as they may be impacted by these medications as well as the already discussed moderate anemia. 4. Acute kidney disease. Patient's renal function is improving but still having problems with hyponatremia and decreased magnesium; therefore, will continue to track these along with medicine. 5. Diabetes mellitus. Will have patient on sliding scale and consistent-carbohydrate diet. 6. Left clavicle fracture. Per x-ray this is subacute to old; however, will observe this; however, patient should be able with this distal clavicle fracture to still have good function using the left upper extremity. POSTADMISSION PHYSICIAN EVALUATION: Patient is consistent with previous preadmission screening and notes. She is challenged because of her mental retardation with being able to participate in acute intensive program; however, should she be able to tolerate this, which I believe she can, this is the fastest way for her to regain independence and return to her prior living situation. Plus, in light of the impulsiveness, which is probably never going to go away, the faster she develops her balance and endurance, the more safe she will be. I do anticipate patient can do the 3 hours of therapy per day and will be discharged to [facility] in approximately 7 days and have a fair to good prognosis. Time spent on chart review, history and physical, and documentation is 70 minutes. HIMANSHU
[2016-11-17 20:00] VITALS: BP 116/70
[2016-11-17] MEDS: DOCUSATE SODIUM 100 MG CAP PO SCH (20:17)
[2016-11-17] MEDS: ACETAMINOPHEN TAB 650MG DOSE (2X325MG) PO PRN (20:19)
[2016-11-17] MEDS ORDERED: MAGNESIUM CHLORIDE 64 MG TABCR (SLO MAG) PO SCH (21:00)
[2016-11-18 06:00] VITALS: BP 144/84
[2016-11-18 07:19] LABS: BASO % 0.3 % (0.0-1.0); EOS # 0.1 K/mm3 (0.0-0.50); EOS % 1.1 % (0.0-3.0); LARGE UNSTAINED CELL # 0.2 K/mm3 (0.0-0.4); LYMPH # 0.9 K/mm3 (1.5-4.5); LYMPH % 9.2 % (24.0-44.0); MEAN CORPUSCULAR HEMOGLOBIN 30.3 pg (27.0-33.0); MEAN CORPUSCULAR HGB CONC 32.2 g/dl (32.0-36.5); MEAN CORPUSCULAR VOLUME 94.2 fl (80.0-96.0); MONO # 0.4 K/mm3 (0.0-0.8); MONO % 5.3 % (0.0-5.0); NEUTROPHILS # 6.3 K/mm3 (1.8-7.7); NEUTROPHILS % 82.1 % (36.0-66.0); PLATELET COUNT, AUTOMATED 250 k/mm3 (150-450); RED CELL DISTRIBUTION WIDTH 18.4 % (11.5-14.5); WHITE BLOOD COUNT 7.7 K/mm3 (4.0-10.0)
[2016-11-18 07:40] LABS: ALBUMIN 2.2 GM/DL (3.2-5.2); ALBUMIN/GLOBULIN RATIO 0.92 (1.00-1.93); ALKALINE PHOSPHATASE 85 U/L (45-117); ALT/SGPT 89 U/L (12-78); ANION GAP 9 MEQ/L (8-16); AST/SGOT 24 U/L (15-37); BILIRUBIN,TOTAL 1.7 MG/DL (0.2-1.0); BLOOD UREA NITROGEN 18 MG/DL (7-18); CALCIUM LEVEL 7.3 MG/DL (8.8-10.2); CARBON DIOXIDE LEVEL 26 MEQ/L (21-32); CHLORIDE LEVEL 100 MEQ/L (98-107); CREATININE FOR GFR 0.67 MG/DL (0.55-1.02); GLOMERULAR FILTRATION RATE > 60.0 (>45); GLUCOSE, FASTING 250 MG/DL (80-110); MAGNESIUM LEVEL 1.6 MG/DL (1.8-2.4); POTASSIUM SERUM 4.3 MEQ/L (3.5-5.1); SODIUM LEVEL 135 MEQ/L (136-145); TOTAL PROTEIN 4.6 GM/DL (6.4-8.2)
[2016-11-18 07:56] LABS: INR 1.34
[2016-11-18] MEDS: SODIUM CHLORIDE 1 GM TAB PO SCH (08:40)
[2016-11-18] MEDS: APIXABAN 5 MG TAB (ELIQUIS) PO SCH ×2 (08:40→20:39)
[2016-11-18] MEDS: CARVedilol 3.125 MG TAB PO SCH ×2 (08:40→20:39)
[2016-11-18] MEDS: ASPIRIN 81 MG ENTERIC TAB PO SCH (08:40)
[2016-11-18] MEDS: HumaLOG INSULIN (NovoLOG) PER UNIT SC SCH ×4 (08:40→20:39)
[2016-11-18] MEDS: AMIODARONE 200 MG TAB (PACERONE) PO SCH (08:40)
[2016-11-18] MEDS: MAGNESIUM CHLORIDE 64 MG TABCR (SLO MAG) PO SCH (08:41)
[2016-11-18] MEDS: DOCUSATE SODIUM 100 MG CAP PO SCH ×2 (08:41→20:42)
[2016-11-18] MEDS: ANALGESIC BALM CRM 120 GM TOP SCH ×3 (08:41→20:40)
[2016-11-18] MEDS: SANTYL OINT 30GM TOP SCH (13:15)
[2016-11-18 14:00] VITALS: BP 122/82
[2016-11-18 20:00] VITALS: BP 137/71
[2016-11-19 06:00] VITALS: BP 152/78
[2016-11-19 06:45] LABS: MEAN CORPUSCULAR HEMOGLOBIN 31.3 pg (27.0-33.0); MEAN CORPUSCULAR HGB CONC 32.5 g/dl (32.0-36.5); MEAN CORPUSCULAR VOLUME 96.2 fl (80.0-96.0); RED CELL DISTRIBUTION WIDTH 18.4 % (11.5-14.5); WHITE BLOOD COUNT 9.4 K/mm3 (4.0-10.0)
[2016-11-19 06:52] LABS: INR 1.29
[2016-11-19 07:10] LABS: ANION GAP 10 MEQ/L (8-16); BLOOD UREA NITROGEN 20 MG/DL (7-18); CALCIUM LEVEL 7.4 MG/DL (8.8-10.2); CARBON DIOXIDE LEVEL 24 MEQ/L (21-32); CHLORIDE LEVEL 100 MEQ/L (98-107); CREATININE FOR GFR 0.64 MG/DL (0.55-1.02); GLOMERULAR FILTRATION RATE > 60.0 (>45); GLUCOSE, FASTING 203 MG/DL (80-110); POTASSIUM SERUM 4.3 MEQ/L (3.5-5.1); SODIUM LEVEL 134 MEQ/L (136-145)
[2016-11-19] MEDS: HumaLOG INSULIN (NovoLOG) PER UNIT SC SCH ×4 (08:38→21:00)
[2016-11-19] MEDS: CARVedilol 3.125 MG TAB PO SCH ×2 (08:39→21:07)
[2016-11-19] MEDS: DOCUSATE SODIUM 100 MG CAP PO SCH ×2 (08:39→21:04)
[2016-11-19] MEDS: ASPIRIN 81 MG ENTERIC TAB PO SCH (08:39)
[2016-11-19] MEDS: APIXABAN 5 MG TAB (ELIQUIS) PO SCH ×2 (08:39→21:04)
[2016-11-19] MEDS: AMIODARONE 200 MG TAB (PACERONE) PO SCH (08:39)
[2016-11-19] MEDS: MAGNESIUM CHLORIDE 64 MG TABCR (SLO MAG) PO SCH (08:40)
[2016-11-19] MEDS: ANALGESIC BALM CRM 120 GM TOP SCH ×3 (08:40→21:08)
[2016-11-19] MEDS: SANTYL OINT 30GM TOP SCH (08:41)
[2016-11-19 09:18] LABS: MAGNESIUM LEVEL 1.8 MG/DL (1.8-2.4)
[2016-11-19 14:00] VITALS: BP 116/61
[2016-11-19 20:00] VITALS: BP 141/75
[2016-11-20 06:00] VITALS: BP 138/88
[2016-11-20 08:04] LABS: MEAN CORPUSCULAR HEMOGLOBIN 31.5 pg (27.0-33.0); MEAN CORPUSCULAR HGB CONC 32.4 g/dl (32.0-36.5); MEAN CORPUSCULAR VOLUME 97.1 fl (80.0-96.0); RED CELL DISTRIBUTION WIDTH 18.7 % (11.5-14.5); WHITE BLOOD COUNT 9.9 K/mm3 (4.0-10.0)
[2016-11-20 08:12] LABS: INR 1.27
[2016-11-20] MEDS: SANTYL OINT 30GM TOP SCH (08:14)
[2016-11-20] MEDS: ANALGESIC BALM CRM 120 GM TOP SCH ×3 (08:14→21:00)
[2016-11-20] MEDS: MAGNESIUM CHLORIDE 64 MG TABCR (SLO MAG) PO SCH (08:14)
[2016-11-20] MEDS: AMIODARONE 200 MG TAB (PACERONE) PO SCH (08:16)
[2016-11-20] MEDS: APIXABAN 5 MG TAB (ELIQUIS) PO SCH ×2 (08:16→20:51)
[2016-11-20] MEDS: CARVedilol 3.125 MG TAB PO SCH ×2 (08:16→20:51)
[2016-11-20] MEDS: DOCUSATE SODIUM 100 MG CAP PO SCH ×2 (08:16→21:00)
[2016-11-20] MEDS: ASPIRIN 81 MG ENTERIC TAB PO SCH (08:16)
[2016-11-20] MEDS: HumaLOG INSULIN (NovoLOG) PER UNIT SC SCH ×4 (08:16→21:00)
[2016-11-20 08:27] LABS: ALBUMIN 2.4 GM/DL (3.2-5.2); ALKALINE PHOSPHATASE 120 U/L (45-117); ALT/SGPT 66 U/L (12-78); ANION GAP 7 MEQ/L (8-16); AST/SGOT 30 U/L (15-37); BILIRUBIN,TOTAL 1.9 MG/DL (0.2-1.0); BLOOD UREA NITROGEN 16 MG/DL (7-18); CALCIUM LEVEL 7.4 MG/DL (8.8-10.2); CARBON DIOXIDE LEVEL 25 MEQ/L (21-32); CHLORIDE LEVEL 99 MEQ/L (98-107); CREATININE FOR GFR 0.64 MG/DL (0.55-1.02); GLOMERULAR FILTRATION RATE > 60.0 (>45); GLUCOSE, FASTING 239 MG/DL (80-110); MAGNESIUM LEVEL 1.8 MG/DL (1.8-2.4); POTASSIUM SERUM 4.3 MEQ/L (3.5-5.1); SODIUM LEVEL 131 MEQ/L (136-145); TOTAL PROTEIN 5.4 GM/DL (6.4-8.2)
[2016-11-20] MEDS: SODIUM CHLORIDE 1 GM TAB PO SCH ×2 (10:13→20:50)
--- NOTE | 2016-11-20 10:55 | CR.PDOC ---
[facility] Consultation Consultation CONSULTATION REPORT FOR: Dr Bell REASON FOR CONSULTATION: Medical Management DATE OF VISIT: 11/20/16 ATTENDING: Dr. Baron Jiménez PCP: Unknown HPI: 66year old F resident of [facility] with a past medical history significant for Cerebral palsy and MR who fell down a flight of stairs at [facility] residential home and struck her left hip, shoulder and head. No LOC. Left clavicle fracture and Large left hip/flank hematoma noted complicated by the use of oral anticoagulants. Pt went on to develop hemorrhagic shock and subsequently received 10 units PRBC and 3 units FFP. The pt was felt stable to transfer to ARU to the care of Dr Bell 11/17/16. The pt is a limited historian and much of the history is taken from the chart. The Pt has no medical complaints today and states she is feeling better. Denies any Headache, Chest Pain, Shortness of breath, cough, abdominal pain, N/V/D or changes in bowel or bladder habits. PMHx: Cerebral palsy/Moderate MR. Resident of [facility]. IDDM Afib/Pacer on oral anticoagulation CHF, diastolic HTN HLD PSHX: cholecystectomy hysterectomy SSS/Pacemaker 2012 appendectomy tonsillectomy toe surgery SOCHX: Resides in: [facility] residence Marital Status: single Kids: none Tobacco use: nonsmoker ETOH: none FAMHX: unable to obtain ROS: As noted in HPI, otherwise 11pt ROS of systems reviewed and unremarkable. Pt denies any pain related to bruising currently. PE: GEN: 66yoF, appears stated age. Well-nourished, well developed. No acute distress. Alert and oriented x 3. Pleasant, interactive. HEENT: Normocephalic, atraumatic. Pupils are equal, round, and reactive to light. Sclera are nonicteric. Conjunctiva without injection. Nose midline. Nasal turbinates without bogginess. EACs both patent BL. TMs both visualized and trujillo with good cone of light, no bulging or erythema. No facial asymmetry. Moist mucous membranes. Dentition poor. Pharynx pink and moist, no cobblestoning. Neck supple, trachea midline. No lymphadenopathy or thyromegaly appreciated. CHEST: Regular rate and rhythm, +S1, +S2 LUNGS: Clear to auscultation bilaterally. No wheezes, rales, or rhonchi. Breathing appears symmetric and easy. Patient is speaking in full sentences. No accessory muscle use. ABD: Round, soft, non-tender, non-distended. +Bowel sounds throughout. No rebound or guarding. No costovertebral angle tenderness. EXT: Pulses 2+ bilaterally dorsalis pedis and radial. No lower extremity edema appreciated. SKIN: [place], dry, warm. No rashes. ecchymosis noted around left shoulder and extensive hematoma noted around Left flank and hip area. NEURO: Alert and oriented x 3. Cranial nerves III-XII are intact. No focal deficits appreciated. A&P: 66year old F resident of [facility] with a past medical history significant for Cerebral palsy and MR who fell down a flight of stairs at [facility] residential home and struck her left hip, shoulder and head. No LOC. Left clavicle fracture and Large left hip/flank hematoma noted complicated by the use of oral anticoagulants. Pt went on to develop hemorrhagic shock and subsequently received 10 units PRBC and 3 units FFP. The pt was felt stable to transfer to ARU to the care of Dr Bell 11/17/16. 1. mechanical fall/Left clavicle fracture/Left flank/hip hematoma. Management as per ARU/Dr Bell. PT/OT ST as per ARU pain control as per ARU Bowel care as per ARU. DVT prophylaxis. Currently on Eliquis 5 mg BID. 2. Diastolic CHF. Continue 1500cc FR. Monitor daily wt and I/O. Aldactone on hold. 3. Hyponatremia. 131 this AM. Pt to resume Na chloride tabs BID. Monitor daily labs. 4. ARABELLA. Resolved. SCr 0.64. Monitor. 5. Blood loss anemia. S/P 10 units PRBC/ 3 units FFP. Hgb 9.3. Monitor. 6. IDDM. CC diet/SSI/ASA 81 mg. Levemir on hold for now. 7. Afib. Amiodarone 200 mg daily. Eliquis 5 mg BID. Monitor. 8. SSS/Pacemaker. Outpt f/u. 9. HTN. Continue with Coreg 3.125 mg BID. Lisinopril on hold. Monitor. 10. HLD. Continue Zocor. 11. CP/MR. Continue with supportive care. Continue Paxil. Risperdal on hold. 12. hypomagnesemia. Continue supplement. Monitor. Thank you for your consultation. We will continue to follow along with you. Vital Signs/I&O Vital Signs Date Time Temp Pulse Resp B/P (MAP) Pulse Ox O2 Delivery O2 Flow Rate FiO2 11/20/16 08:16 61 138/88 11/20/16 08:00 Room Air 11/20/16 06:00 98.4 18 95 I&O- Last 24 Hours up to 6 AM 11/20/16 06:00 Intake Total 720 ml Balance 720 ml Laboratory Data Labs 24H Laboratory Tests 2 11/19/16 11:37: Bedside Glucose (Misc Panel) 224H 11/19/16 16:37: Bedside Glucose (Misc Panel) 265H 11/19/16 20:20: Bedside Glucose (Misc Panel) 217H 11/20/16 06:53: Bedside Glucose (Misc Panel) 224H 11/20/16 07:35: Prothrombin Time 16.0H, Prothromb Time International Ratio 1.27, Anion Gap 7L, Glomerular Filtration Rate > 60.0, Blood Urea Nitrogen 16, Creatinine 0.64, Sodium Level 131L, Potassium Level 4.3, Chloride Level 99, Carbon Dioxide Level 25, Calcium Level 7.4L, Aspartate Amino Transf (AST/SGOT) 30, Alanine Aminotransferase (ALT/SGPT) 66, Alkaline Phosphatase 120H, Total Bilirubin 1.9H , Total Protein 5.4L, Albumin 2.4L, Magnesium Level 1.8, Albumin/Globulin Ratio 0.80L CBC/BMP Laboratory Tests 11/20/16 07:35 Red Blood Count 2.97 L, Mean Corpuscular Volume 97.1 H, Mean Corpuscular Hemoglobin 31.5, Mean Corpuscular Hemoglobin Concent 32.4, Red Cell Distribution Width 18.7 H, Calcium Level 7.4 L, Aspartate Amino Transf (AST/SGOT ) 30, Alanine Aminotransferase (ALT/SGPT) 66, Alkaline Phosphatase 120 H, Total Bilirubin 1.9 H, Total Protein 5.4 L, Albumin 2.4 L Allergies Coded Allergies: No Known Drug Allergy (Verified Allergy, Unknown, 10/25/16) Home Medications Scheduled Amiodarone HCl (Amiodarone Hydrochloride) 200 Mg Tab, 200 MG PO DAILY, (Reported ) Apixaban Base (Eliquis) 5 Mg Tab, 5 MG PO BID, (Reported) Aspirin (Aspir-81) 81 Mg Tab, 81 MG PO DAILY, (Reported) Carvedilol (Coreg) 3.125 Mg Tab, 3.125 MG PO BID, (Reported) Collagenase (Santyl) 250 Unit/Gm Oin, 1 DOSE TOP Q2D, (Reported) APPLIED TO RIGHT BIG TOE, RIGHT FOUR TOE, RIGHT HEEL, AND LEFT MEDIAL ANKLE EVERY OTHER DAY AT QHS Docusate Sodium (Colace) 100 Mg Cap, 100 MG PO BID, #1 Insulin Human Lispro (Humalog) 1 Units/0.01 Ml Inj, 0 UNITS SC AC for 1 Days, #1 Insulin Human Lispro (Humalog) 1 Units/0.01 Ml Inj, 0 UNITS SC QHS, #1 Paroxetine Hydrochloride (Paxil) 30 Mg Tab, 60 MG PO QHS, (Reported) Simvastatin (Simvastatin) 20 Mg Tab, 20 MG PO QHS, (Reported) Sodium Chloride (Sodium Chloride) 1 Gm Tab, 1 GM PO BID, #60 Scheduled PRN Acetaminophen (Acetaminophen) 325 Mg Tab, 650 MG PO Q4H PRN for PAIN / FEVER, ( Reported) Acetaminophen/Hydrocodone ([place], [place] 5/325) 1 Tab Tab, 1 TAB PO Q4HP PRN for MODERATE PAIN (PS 5-7), #1 Brenna Francis Nov 20, 2016 10:54 BARON JIMÉNEZ MD Nov 20, 2016 18:08
[2016-11-20 14:00] VITALS: BP 133/65
--- NOTE | 2016-11-20 14:50 | IPNPDOC ---
[employer] Progress Note DATE OF SERVICE: 11/20/16 DATE OF ADMISSION: Nov 17, 2016 at 11:30 INPATIENT REHABILITATION ADMISSION DAY: #4 SUBJECTIVE: Patient is a 66-year-old white female with debilitated by severe hemorrhage after a fall down the stairs while on Eliquis for CVA prevention in this lady with atrial fibrillation. Patient had severe enough hemorrhage that she developed some acute respiratory failure and acute renal failure and required 10 units of packed red blood cells with 3 units of fresh frozen plasma and 1 unit of platelets to reverse the bleeding. Patient who has cognitive deficits and has lived from a years at [facility] will be returning there as soon as her skills allow. Patient reports that the pain has been improved by using the BenGay to the areas of ecchymosis on the left chest and flank. Patient without other complaints today. ALLERGIES: See Below MEDICATIONS: Reviewed, see below. OBJECTIVE: VITAL SIGNS: Please see below. PHYSICAL EXAMINATION: GENERAL: Late middle-aged white female who is obese and of short average height. Patient is in mild musculoskeletal distress with extensive ecchymoses across the chest and back centered around the left side. HEENT: Normocephalic/atraumatic with poor dental development and some decreased dental hygiene. CARDIOVASCULAR: Regular rate and rhythm with normal S1 and S2. 2/4 bilateral radial pulses. LUNGS: [place] clear to auscultation. ABDOMEN: Benign, nontender with no masses palpable and normal bowel sounds in all quadrants. NEUROLOGICAL: Patient is alert and oriented to self with limited orientation to her location, the time, and her situation. Motor endurance and functioning with bilateral upper and lower extremity is improving and patient is gaiting better with front wheeled walker. She continues to have some balance deficits but this is improving as well. SKIN: Extensive ecchymosis ranging from blackish to read most of it being purplish at this time. It is most concentrated on the back in gravity dependent areas from lying down and around the left hip. LABORATORY DATA: Reviewed. Please see below. MICROBIOLOGY: Please see below. IMAGING: No new imaging. DVT prophylaxis ordered?: Eliquis, aspirin and DEYSI alex ASSESSMENT AND PLAN: 1. Rehabilitation of debilitation secondary to severe trauma and hemorrhage: Patient is participating in and showing benefit from physical and occupational therapy increasing her ADLs and ambulation skills using front wheeled walker. Rehabilitation team rounds: Patient was reviewed and appears to be rapidly closing in on her baseline skills except for using a walker for support. It is felt that using walker style ambulation A she will be ready for discharge on Sunday, November 22. Patient will need a front wheel walker. Patient will receive physical and occupational therapy at [facility]. Patient is happy about this news. 2. Anemia secondary to hemorrhage: Patient sustained stable with H&H today of 9.3 and 28.8. 3. Hyponatremia: Patient being restarted on sodium chloride tablets at 1 g by mouth twice a day as Na+ 131. 4. Type 2 diabetes mellitus: Blood sugars often running in the low 200s. Patient may need some further adjustment of her diabetic management. I will ask [facility] to review this and make appropriate adjustments. 5. Acute kidney disease secondary to hemorrhage: Today's BUN/creatinine and creatinine have normalized. We'll continue to observe. TIME SPENT: Chart Review, examination and documentation required greater than 35 minutes. Allergies Coded Allergies: No Known Drug Allergy (Verified Allergy, Unknown, 10/25/16) Vital Signs Vital Signs Date Time Temp Pulse Resp B/P (MAP) Pulse Ox O2 Delivery O2 Flow Rate FiO2 11/20/16 08:16 61 138/88 11/20/16 08:00 Room Air 11/20/16 06:00 98.4 18 95 Laboratory Data CBC/BMP Laboratory Tests 11/20/16 07:35 Red Blood Count 2.97 L, Mean Corpuscular Volume 97.1 H, Mean Corpuscular Hemoglobin 31.5, Mean Corpuscular Hemoglobin Concent 32.4, Red Cell Distribution Width 18.7 H, Calcium Level 7.4 L, Aspartate Amino Transf (AST/SGOT ) 30, Alanine Aminotransferase (ALT/SGPT) 66, Alkaline Phosphatase 120 H, Total Bilirubin 1.9 H, Total Protein 5.4 L, Albumin 2.4 L Labs 24H Laboratory Tests 2 11/19/16 16:37: Bedside Glucose (Misc Panel) 265H 11/19/16 20:20: Bedside Glucose (Misc Panel) 217H 11/20/16 06:53: Bedside Glucose (Misc Panel) 224H 11/20/16 07:35: Prothrombin Time 16.0H, Prothromb Time International Ratio 1.27, Anion Gap 7L, Glomerular Filtration Rate > 60.0, Blood Urea Nitrogen 16, Creatinine 0.64, Sodium Level 131L, Potassium Level 4.3, Chloride Level 99, Carbon Dioxide Level 25, Calcium Level 7.4L, Aspartate Amino Transf (AST/SGOT) 30, Alanine Aminotransferase (ALT/SGPT) 66, Alkaline Phosphatase 120H, Total Bilirubin 1.9H , Total Protein 5.4L, Albumin 2.4L, Magnesium Level 1.8, Albumin/Globulin Ratio 0.80L 11/20/16 11:36: Bedside Glucose (Misc Panel) 219H Current Medications Current Medications Current Medications Acetaminophen (Tylenol Tab) 650 mg Q6HP PRN PO MILD PAIN OR FEVER Last administered on 11/17/16 20:19; Start 11/17/16 at 09:30; Stop 12/17/16 at 09:29 Amiodarone HCl (Pacerone, Cordarone) 200 mg DAILY PO Last administered on 08:16; Start 11/17/16 at 09:00; Stop 12/17/16 at 08:59 Apixaban (Eliquis) 5 mg BID PO Last administered on 11/20/16 08:16; Start at 09:00; Stop 11/24/16 at 08:59 Aspirin (Ecotrin) 81 mg DAILY PO Last administered on 11/20/16 08:16; Start at 09:00; Stop 12/17/16 at 08:59 Bisacodyl (Dulcolax Tab) 5 mg DAILYPRN PRN PO CONSTIPATION; Start 11/17/16 at 09:30; Stop 12/17/16 at 09:29 Carvedilol (COReg) 3.125 mg Q12H PO Last administered on 11/20/16 08:16; Start 11/17/16 at 09:00; Stop 12/17/16 at 08:59 Collagenase (Santyl) 1 dose DAILY TOP Last administered on 11/20/16 08:14; Start 11/18/16 at 09:00; Stop 12/18/16 at 08:59 Dextrose (Dextrose 50%) 25 ml ASDIRECTED PRN IV SEE LABEL COMMENTS; Start 11/17 at 09:45; Stop 12/17/16 at 09:44 Docusate Sodium (Colace) 100 mg BID PO Last administered on 11/20/16 08:16; Start 11/17/16 at 21:00; Stop 12/17/16 at 20:59 Glucagon (Glucagon) 1 mg ASDIRECTED PRN SC SEE LABEL COMMENTS; Start 11/17/16 at 09:45; Stop 12/17/16 at 09:44 Glucose (Glucose) 16 GM ASDIRECTED PRN PO SEE LABEL COMMENTS; Start 11/17/16 at 09:45; Stop 12/17/16 at 09:44 Insulin Human Lispro (HumaLOG INSULIN) See Protocol Table AC SC Last administered on 11/20/16 12:22; Start 11/17/16 at 12:00; Stop 12/17/16 at 11:59 Insulin Human Lispro (HumaLOG INSULIN) See Protocol Table QHS SC Last administered on 11/18/16 20:39; Start 11/17/16 at 21:00; Stop 12/17/16 at 20:59 Magnesium Chloride (Slow-Mag) 128 mg BID PO ; Start 11/17/16 at 21:00; Stop at 21:00; Status DC Magnesium Chloride (Slow-Mag) 128 mg DAILY PO Last administered on 11/20/16 08 :14; Start 11/17/16 at 09:00; Stop 12/17/16 at 08:59 Menthol/Methyl Salicylate (Bengay Cream) topically to left chest/flank/ thigh TID TOP Last administered on 11/20/16 08:14; Start 11/17/16 at 09:00; Stop at 08:59 Methylphenidate HCl (Ritalin) 2.5 mg BID@0800,1200 PO ; Start 11/17/16 at 12:00 ; Stop 11/24/16 at 11:59; Status Cancel Sodium Biphosphate/ Sodium Phosphate (Fleet Enema) 1 ea DAILYPRN PRN DE CONSTIPATION; Start 11/17/16 at 09:30; Stop 12/17/16 at 09:29 Sodium Chloride (Sodium Chloride) 1 gm BID PO Last administered on 11/18/16 08 :40; Start 11/17/16 at 09:00; Stop 11/18/16 at 11:00; Status DC Sodium Chloride (Sodium Chloride) 1 gm BID PO Last administered on 11/20/16 10 :13; Start 11/20/16 at 09:00; Stop 12/20/16 at 08:59 RUBI ISABEL MD Nov 20, 2016 14:50
[2016-11-20 20:00] VITALS: BP 169/86
[2016-11-21 05:16] VITALS: BP 157/79
[2016-11-21 08:04] LABS: MEAN CORPUSCULAR HGB CONC 31.9 g/dl (32.0-36.5); MEAN CORPUSCULAR VOLUME 97.3 fl (80.0-96.0); RED CELL DISTRIBUTION WIDTH 19.4 % (11.5-14.5); WHITE BLOOD COUNT 6.7 K/mm3 (4.0-10.0)
[2016-11-21 08:13] LABS: INR 1.33
[2016-11-21] MEDS: HumaLOG INSULIN (NovoLOG) PER UNIT SC SCH ×4 (08:23→21:00)
[2016-11-21] MEDS: MAGNESIUM CHLORIDE 64 MG TABCR (SLO MAG) PO SCH (08:23)
[2016-11-21] MEDS: APIXABAN 5 MG TAB (ELIQUIS) PO SCH ×2 (08:24→20:59)
[2016-11-21] MEDS: ASPIRIN 81 MG ENTERIC TAB PO SCH (08:24)
[2016-11-21] MEDS: SODIUM CHLORIDE 1 GM TAB PO SCH ×3 (08:24→21:00)
[2016-11-21] MEDS: DOCUSATE SODIUM 100 MG CAP PO SCH ×2 (08:24→21:00)
[2016-11-21] MEDS: CARVedilol 3.125 MG TAB PO SCH ×2 (08:24→21:00)
[2016-11-21] MEDS: AMIODARONE 200 MG TAB (PACERONE) PO SCH (08:24)
[2016-11-21] MEDS: SANTYL OINT 30GM TOP SCH (08:25)
[2016-11-21 08:30] LABS: ALBUMIN 2.6 GM/DL (3.2-5.2); ALKALINE PHOSPHATASE 144 U/L (45-117); ALT/SGPT 64 U/L (12-78); ANION GAP 8 MEQ/L (8-16); AST/SGOT 36 U/L (15-37); BILIRUBIN,TOTAL 2.1 MG/DL (0.2-1.0); BLOOD UREA NITROGEN 16 MG/DL (7-18); CALCIUM LEVEL 7.5 MG/DL (8.8-10.2); CARBON DIOXIDE LEVEL 23 MEQ/L (21-32); CHLORIDE LEVEL 101 MEQ/L (98-107); CREATININE FOR GFR 0.62 MG/DL (0.55-1.02); GLOMERULAR FILTRATION RATE > 60.0 (>45); GLUCOSE, FASTING 238 MG/DL (80-110); MAGNESIUM LEVEL 1.9 MG/DL (1.8-2.4); POTASSIUM SERUM 4.4 MEQ/L (3.5-5.1); SODIUM LEVEL 132 MEQ/L (136-145); TOTAL PROTEIN 5.2 GM/DL (6.4-8.2)
[2016-11-21] MEDS ORDERED: SODIUM CHLORIDE 1 GM TAB PO ONE (10:00)
--- NOTE | 2016-11-21 11:01 | IPNPDOC ---
Date Seen The patient was seen on 11/21/16. Progress Note HPI: 66year old F resident of [facility] with a past medical history significant for Cerebral palsy and MR who fell down a flight of stairs at [facility] residential home and struck her left hip, shoulder and head. No LOC. Left clavicle fracture and Large left hip/flank hematoma noted complicated by the use of oral anticoagulants. Pt went on to develop hemorrhagic shock and subsequently received 10 units PRBC and 3 units FFP. The pt was felt stable to transfer to ARU to the care of Dr Bell 11/17/16. The pt is a limited historian. The Pt has no medical complaints today and states she is feeling well, just that she is tired. Denies any Headache, Chest Pain, Shortness of breath, cough, abdominal pain, N/V /D or changes in bowel or bladder habits. PMHx: Cerebral palsy/Moderate MR. Resident of [facility]. IDDM Afib/Pacer on oral anticoagulation CHF, diastolic HTN HLD PSHX: cholecystectomy hysterectomy SSS/Pacemaker 2012 appendectomy tonsillectomy toe surgery ROS: As noted in HPI, otherwise 11pt ROS of systems reviewed and unremarkable. Pt denies any pain related to bruising currently. PE: GEN: 66yoF, appears stated age. Well-nourished, well developed. No acute distress. Alert and oriented x 3. Pleasant, interactive. HEENT: Normocephalic, atraumatic. Sclera are nonicteric. Conjunctiva without injection. Nose midline. Nasal turbinates without bogginess. No facial asymmetry. Moist mucous membranes. Dentition poor. Pharynx pink and moist, no cobblestoning. Neck supple, trachea midline. No lymphadenopathy or thyromegaly appreciated. CHEST: Regular rate and rhythm, +S1, +S2 LUNGS: Clear to auscultation bilaterally. No wheezes, rales, or rhonchi. Breathing appears symmetric and easy. Patient is speaking in full sentences. No accessory muscle use. ABD: Round, soft, non-tender, non-distended. +Bowel sounds throughout. No rebound or guarding. No costovertebral angle tenderness. EXT: Pulses 2+ bilaterally dorsalis pedis and radial. No lower extremity edema appreciated. SKIN: [place], dry, warm. No rashes. ecchymosis noted around left shoulder and extensive hematoma noted around Left flank and hip area, unchanged. NEURO: Alert and oriented x 3. Cranial nerves III-XII are intact. No focal deficits appreciated. A&P: 66year old F resident of [facility] with a past medical history significant for Cerebral palsy and MR who fell down a flight of stairs at [facility] residential home and struck her left hip, shoulder and head. No LOC. Left clavicle fracture and Large left hip/flank hematoma noted complicated by the use of oral anticoagulants. Pt went on to develop hemorrhagic shock and subsequently received 10 units PRBC and 3 units FFP. The pt was felt stable to transfer to ARU to the care of Dr Bell 11/17/16. 1. mechanical fall/Left clavicle fracture/Left flank/hip hematoma. Management as per ARU/Dr Bell. PT/OT ST as per ARU pain control as per ARU Bowel care as per ARU. DVT prophylaxis. Currently on Eliquis 5 mg BID. Disposition as per ARU. Anticipated D/C date 11/22/16. 2. Diastolic CHF. Continue 1500cc FR. Monitor daily wt and I/O. Aldactone on hold. 3. Hyponatremia. 132 this AM. Pt Na chloride tabs increased to TID this AM as per ARU attending. Monitor daily labs. 4. ARABELLA. Resolved. SCr 0.62. Monitor. 5. Blood loss anemia. S/P 10 units PRBC/ 3 units FFP. Hgb 9.2. Monitor daily labs. 6. IDDM. CC diet/SSI/ASA 81 mg. Levemir on hold for now. 7. Afib. Amiodarone 200 mg daily. Eliquis 5 mg BID. Monitor. 8. SSS/Pacemaker. Outpt f/u. 9. HTN. Continue with Coreg 3.125 mg BID. Lisinopril on hold. SBP 133-157. Monitor. 10. HLD. Continue Zocor. 11. CP/MR. Continue with supportive care. Continue Paxil. Risperdal on hold. 12. hypomagnesemia. Continue supplement. Mag level WNL. Monitor. VS, I&O, 24H, Fishbone Vital Signs/I&O Vital Signs Date Time Temp Pulse Resp B/P (MAP) Pulse Ox O2 Delivery O2 Flow Rate FiO2 11/21/16 08:24 63 157/79 11/21/16 08:00 Room Air 11/21/16 05:16 99.3 18 97 I&O- Last 24 Hours up to 6 AM 11/21/16 06:00 Intake Total 1440 ml Balance 1440 ml Laboratory Data 24H LABS Laboratory Tests 2 11/20/16 11:36: Bedside Glucose (Misc Panel) 219H 11/20/16 16:44: Bedside Glucose (Misc Panel) 169H 11/20/16 20:53: Bedside Glucose (Misc Panel) 159H 11/21/16 06:51: Bedside Glucose (Misc Panel) 237H 11/21/16 07:47: Prothrombin Time 16.6H, Prothromb Time International Ratio 1.33, Anion Gap 8, Glomerular Filtration Rate > 60.0, Blood Urea Nitrogen 16, Creatinine 0.62, Sodium Level 132L, Potassium Level 4.4, Chloride Level 101, Carbon Dioxide Level 23, Calcium Level 7.5L, Aspartate Amino Transf (AST/SGOT) 36, Alanine Aminotransferase (ALT/SGPT) 64, Alkaline Phosphatase 144H, Total Bilirubin 2.1H , Total Protein 5.2L, Albumin 2.6L, Magnesium Level 1.9, Albumin/Globulin Ratio 1.00 CBC/BMP Laboratory Tests 11/21/16 07:47 Red Blood Count 2.96 L, Mean Corpuscular Volume 97.3 H, Mean Corpuscular Hemoglobin 31.0, Mean Corpuscular Hemoglobin Concent 31.9 L, Red Cell Distribution Width 19.4 H, Calcium Level 7.5 L, Aspartate Amino Transf (AST/SGOT ) 36, Alanine Aminotransferase (ALT/SGPT) 64, Alkaline Phosphatase 144 H, Total Bilirubin 2.1 H, Total Protein 5.2 L, Albumin 2.6 L Brenna Francsi Nov 21, 2016 11:01
--- NOTE | 2016-11-21 11:39 | IPNPDOC ---
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 Patient had severe enough hemorrhage that she developed some acute respiratory failure and acute renal failure and required 10 units of packed red blood cells with 3 units of fresh frozen plasma and 1 unit of platelets to reverse the bleeding. Patient who has cognitive deficits and has lived from a years at [facility] will be returning there as soon as her skills allow. Patient without other complaints today. ALLERGIES: See Below MEDICATIONS: Reviewed, see below. OBJECTIVE: VITAL SIGNS: Please see below. PHYSICAL EXAMINATION: GENERAL: Late middle-aged white female who is obese and of short average height. Patient is in mild musculoskeletal distress with extensive ecchymoses across the chest and back centered around the left side. HEENT: Normocephalic/atraumatic with poor dental development and some decreased dental hygiene. CARDIOVASCULAR: Regular rate and rhythm with normal S1 and S2. 2/4 bilateral radial pulses. LUNGS: All [place] clear to auscultation. ABDOMEN: Benign, nontender with no masses palpable and normal bowel sounds in all quadrants. NEUROLOGICAL: Patient is alert and oriented to self with limited orientation to her location, the time, and her situation. Motor endurance and functioning with bilateral upper and lower extremity is improving and patient is gaiting better with front wheeled walker. She continues to have some balance deficits but this is improving as well. SKIN: Extensive ecchymosis ranging from blackish to read most of it being purplish at this time. It is most concentrated on the back in gravity dependent areas from lying down and around the left hip. LABORATORY DATA: Reviewed. Please see below. MICROBIOLOGY: Please see below. IMAGING: No new imaging. DVT prophylaxis ordered?: Eliquis, aspirin and DEYSI alex ASSESSMENT AND PLAN: 1. Rehabilitation of debilitation secondary to severe trauma and hemorrhage: Patient is participating in and showing benefit from physical and occupational therapy increasing her ADLs and ambulation skills using front wheeled walker. Patient appears to still be rapidly closing in on her baseline skills except for using a walker for support. It is felt that using walker style ambulation that she will be ready for discharge tomorrow on November 22. Patient will need a front wheel walker. Patient will receive physical and occupational therapy at [facility]. Patient is happy about this news. 2. Anemia secondary to hemorrhage: Patient sustained stable with H&H today of 9.2 and 28.7. 3. Hyponatremia: Patient being increased on sodium chloride tablets at 1 g by mouth TID a day as Na+ 132 today. 4. Type 2 diabetes mellitus: Blood sugars often running in the low 200s. Patient may need some further adjustment of her diabetic management. 5. Acute kidney disease secondary to hemorrhage: Today's BUN/creatinine and creatinine remain normalized. Na+ has dropped to 132 so I will increase to 1 gram of NaCl PO TID now. We'll continue to observe lytes and renal function. TIME SPENT: Chart Review, examination and documentation required greater than 25 minutes. Allergies Allergies Coded Allergies: No Known Drug Allergy (Verified Allergy, Unknown, 10/25/16) Vital Signs Vital Signs Date Time Temp Pulse Resp B/P (MAP) Pulse Ox O2 Delivery O2 Flow Rate FiO2 11/21/16 08:24 63 157/79 11/21/16 08:00 Room Air 11/21/16 05:16 99.3 18 97 Laboratory Data CBC/BMP Laboratory Tests 11/21/16 07:47 Red Blood Count 2.96 L, Mean Corpuscular Volume 97.3 H, Mean Corpuscular Hemoglobin 31.0, Mean Corpuscular Hemoglobin Concent 31.9 L, Red Cell Distribution Width 19.4 H, Calcium Level 7.5 L, Aspartate Amino Transf (AST/SGOT ) 36, Alanine Aminotransferase (ALT/SGPT) 64, Alkaline Phosphatase 144 H, Total Bilirubin 2.1 H, Total Protein 5.2 L, Albumin 2.6 L Labs 24H Laboratory Tests 2 11/20/16 11:36: Bedside Glucose (Misc Panel) 219H 11/20/16 16:44: Bedside Glucose (Misc Panel) 169H 11/20/16 20:53: Bedside Glucose (Misc Panel) 159H 11/21/16 06:51: Bedside Glucose (Misc Panel) 237H 11/21/16 07:47: Prothrombin Time 16.6H, Prothromb Time International Ratio 1.33, Anion Gap 8, Glomerular Filtration Rate > 60.0, Blood Urea Nitrogen 16, Creatinine 0.62, Sodium Level 132L, Potassium Level 4.4, Chloride Level 101, Carbon Dioxide Level 23, Calcium Level 7.5L, Aspartate Amino Transf (AST/SGOT) 36, Alanine Aminotransferase (ALT/SGPT) 64, Alkaline Phosphatase 144H, Total Bilirubin 2.1H , Total Protein 5.2L, Albumin 2.6L, Magnesium Level 1.9, Albumin/Globulin Ratio 1.00 Current Medications Current Medications Current Medications Acetaminophen (Tylenol Tab) 650 mg Q6HP PRN PO MILD PAIN OR FEVER Last administered on 11/17/16 20:19; Start 11/17/16 at 09:30; Stop 12/17/16 at 09:29 Amiodarone HCl (Pacerone, Cordarone) 200 mg DAILY PO Last administered on 08:24; Start 11/17/16 at 09:00; Stop 12/17/16 at 08:59 Apixaban (Eliquis) 5 mg BID PO Last administered on 11/21/16 08:24; Start at 09:00; Stop 11/24/16 at 08:59 Aspirin (Ecotrin) 81 mg DAILY PO Last administered on 11/21/16 08:24; Start at 09:00; Stop 12/17/16 at 08:59 Bisacodyl (Dulcolax Tab) 5 mg DAILYPRN PRN PO CONSTIPATION; Start 11/17/16 at 09:30; Stop 12/17/16 at 09:29 Carvedilol (COReg) 3.125 mg Q12H PO Last administered on 11/21/16 08:24; Start 11/17/16 at 09:00; Stop 12/17/16 at 08:59 Collagenase (Santyl) 1 dose DAILY TOP Last administered on 11/21/16 08:25; Start 11/18/16 at 09:00; Stop 12/18/16 at 08:59 Dextrose (Dextrose 50%) 25 ml ASDIRECTED PRN IV SEE LABEL COMMENTS; Start 11/17 at 09:45; Stop 12/17/16 at 09:44 Docusate Sodium (Colace) 100 mg BID PO Last administered on 11/20/16 08:16; Start 11/17/16 at 21:00; Stop 12/17/16 at 20:59 Glucagon (Glucagon) 1 mg ASDIRECTED PRN SC SEE LABEL COMMENTS; Start 11/17/16 at 09:45; Stop 12/17/16 at 09:44 Glucose (Glucose) 16 GM ASDIRECTED PRN PO SEE LABEL COMMENTS; Start 11/17/16 at 09:45; Stop 12/17/16 at 09:44 Insulin Human Lispro (HumaLOG INSULIN) See Protocol Table AC SC Last administered on 11/21/16 08:23; Start 11/17/16 at 12:00; Stop 12/17/16 at 11:59 Insulin Human Lispro (HumaLOG INSULIN) See Protocol Table QHS SC Last administered on 11/18/16 20:39; Start 11/17/16 at 21:00; Stop 12/17/16 at 20:59 Magnesium Chloride (Slow-Mag) 128 mg BID PO ; Start 11/17/16 at 21:00; Stop at 21:00; Status DC Magnesium Chloride (Slow-Mag) 128 mg DAILY PO Last administered on 11/21/16 08 :23; Start 11/17/16 at 09:00; Stop 12/17/16 at 08:59 Menthol/Methyl Salicylate (Bengay Cream) topically to left chest/flank/ thigh TID TOP Last administered on 11/20/16 21:00; Start 11/17/16 at 09:00; Stop at 08:59; Status DC Methylphenidate HCl (Ritalin) 2.5 mg BID@0800,1200 PO ; Start 11/17/16 at 12:00 ; Stop 11/24/16 at 11:59; Status Cancel Sodium Biphosphate/ Sodium Phosphate (Fleet Enema) 1 ea DAILYPRN PRN CA CONSTIPATION; Start 11/17/16 at 09:30; Stop 12/17/16 at 09:29 Sodium Chloride (Sodium Chloride) 1 gm BID PO Last administered on 11/18/16 08 :40; Start 11/17/16 at 09:00; Stop 11/18/16 at 11:00; Status DC Sodium Chloride (Sodium Chloride) 1 gm BID PO Last administered on 11/21/16 08 :24; Start 11/20/16 at 09:00; Stop 11/21/16 at 09:48; Status DC Sodium Chloride (Sodium Chloride) 1 gm TID PO ; Start 11/21/16 at 16:00; Stop at 08:59 RUBI ISABEL MD Nov 21, 2016 11:39
[2016-11-21 14:00] VITALS: BP 156/98
[2016-11-21] MEDS: ACETAMINOPHEN TAB 650MG DOSE (2X325MG) PO PRN (14:28)
[2016-11-21 20:00] VITALS: BP 133/71
[2016-11-22 05:37] VITALS: BP 170/86
[2016-11-22 07:13] LABS: INR 1.38; MEAN CORPUSCULAR HEMOGLOBIN 31.3 pg (27.0-33.0); MEAN CORPUSCULAR HGB CONC 31.5 g/dl (32.0-36.5); MEAN CORPUSCULAR VOLUME 99.2 fl (80.0-96.0); RED CELL DISTRIBUTION WIDTH 19.5 % (11.5-14.5); WHITE BLOOD COUNT 6.1 K/mm3 (4.0-10.0)
[2016-11-22 07:28] LABS: ALBUMIN 2.4 GM/DL (3.2-5.2); ALBUMIN/GLOBULIN RATIO 0.83 (1.00-1.93); ALKALINE PHOSPHATASE 138 U/L (45-117); ALT/SGPT 54 U/L (12-78); ANION GAP 7 MEQ/L (8-16); AST/SGOT 25 U/L (15-37); BILIRUBIN,TOTAL 1.5 MG/DL (0.2-1.0); BLOOD UREA NITROGEN 13 MG/DL (7-18); CALCIUM LEVEL 7.6 MG/DL (8.8-10.2); CARBON DIOXIDE LEVEL 26 MEQ/L (21-32); CHLORIDE LEVEL 101 MEQ/L (98-107); CREATININE FOR GFR 0.65 MG/DL (0.55-1.02); GLOMERULAR FILTRATION RATE > 60.0 (>45); GLUCOSE, FASTING 221 MG/DL (80-110); POTASSIUM SERUM 4.1 MEQ/L (3.5-5.1); SODIUM LEVEL 134 MEQ/L (136-145); TOTAL PROTEIN 5.3 GM/DL (6.4-8.2)
[2016-11-22] MEDS: HumaLOG INSULIN (NovoLOG) PER UNIT SC SCH ×2 (08:19→12:07)
[2016-11-22] MEDS: ASPIRIN 81 MG ENTERIC TAB PO SCH (08:19)
[2016-11-22] MEDS: MAGNESIUM CHLORIDE 64 MG TABCR (SLO MAG) PO SCH (08:19)
[2016-11-22 08:20] VITALS: BP 170/86
[2016-11-22] MEDS: SODIUM CHLORIDE 1 GM TAB PO SCH (08:20)
[2016-11-22] MEDS: APIXABAN 5 MG TAB (ELIQUIS) PO SCH (08:20)
[2016-11-22] MEDS: AMIODARONE 200 MG TAB (PACERONE) PO SCH (08:20)
[2016-11-22] MEDS: CARVedilol 3.125 MG TAB PO SCH (08:20)
[2016-11-22] MEDS: SANTYL OINT 30GM TOP SCH (08:21)
[2016-11-22] MEDS: DOCUSATE SODIUM 100 MG CAP PO SCH (08:21)
[2016-11-22] MEDS ORDERED: SODI1TA PO (09:00)
[2016-11-22] MEDS ORDERED: MAGN64TASA PO (09:00)
--- NOTE | 2016-11-23 10:40 | PMRDS ---
DATE OF ADMISSION: 11/17/2016 DATE OF DISCHARGE: 11/22/2016 DISCHARGE DIAGNOSIS: Rehabilitation of debilitation secondary to a fall down a flight of stairs with severe hemorrhage causing secondary respiratory failure and acute kidney disease. SECONDARY DIAGNOSES: 1. Moderate mental retardation. 2. Type 2 diabetes mellitus. 3. Atherosclerotic cardiovascular disease, including atrial fibrillation and sick sinus syndrome and being status post AICD placement. 4. Subacute left clavicle fracture that is about 4 to 6 weeks old. HISTORY: The patient is a 66-year-old white female, who, due to her chronic cognitive deficits, was living at [facility] ([facility] and on 11/07/2016 the patient, who was anticoagulated with Eliquis and has a history of some impulsive behavior, fell down a flight of stairs, traumatizing her left body with extensive contusions and bleeding to the left shoulder, chest, flank, hip without any new and acute fractures, just the subacute left clavicle fracture. The patient with hypotension due to the bleeding and a left massive left lower flank and hip area hematoma, received 10 units of packed red blood cells, 3 units of fresh frozen plasma, and 1 unit of platelets over the course of 48 hours to reverse the bleeding. She was found to have pulmonary edema and possible pneumonia, as well as acute kidney disease. Her amiodarone, Eliquis, aspirin, and Lisinopril were discontinued and the patient was managed by the medicine and surgical providers and was stabilized. On 11/17/2016, the patient had been progressing and showing improved medical stability, but still had diminished endurance, gait and self care skills, below her baseline. She was assessed by physical and occupational therapy (OT) and felt to be ready for acute intensive rehabilitation and admitted to acute rehabilitation unit on 11/17/2016. PROCEDURES DURING THE COURSE OF THIS ADMISSION: None. DIAGNOSTIC AND LABORATORY DATA: The patient was admitted with hemoglobin and hematocrit of 8.7 and 27.1% and discharged with 9.5 and 30.1%, having shown improvement in her anemia, but having repeated difficulty with hyponatremia. Admitted with a sodium of 135, otherwise normal electrolytes and being discharged today with a sodium of 134, potassium 4.1, chloride 101, and bicarbonate of 26. BUN has improved down to 13, and creatinine 0.65 from her prior acute kidney disease. However, the patient is still having difficulty with controlling diabetes and her blood sugar fasting this morning was 221. The patient initially with low magnesium on admission of 1.6 and yesterday had recovered to 1.9 on supplementation. Total bilirubin had crested as she was breaking down her hematoma at 2.1, but today is 1.5 and her alkaline phosphatase crested yesterday at 144 and has declined back to 138 today. Her albumin is low with hypoalbuminemia of 2.4. HOSPITAL COURSE: The patient was admitted to acute rehabilitation unit on 11/17/2016 and evaluated by speech, physical and occupational therapy. The patient improved quickly with speech therapy on diet review and some regular diet except for being consistent carbohydrate and being restricted because of the hyponatremia to 1500 mL per day. The patient on occupational therapy with minimal assistance on supine to sit and sit to stand, contact guard assistance stand to sit and bed to chair, and toilet transfers with moderate assistance with bathing, minimal medical assistant prn upper body dressing, maximal assistance lower body dressing, contact guard assistance for grooming and toileting with minus good sitting balance, stacking dynamic and fair plus standing, stacking dynamic, balance, standby assistance in sit to supine, bed mobility, sit to stand, stand to sit and contact guard chair to bed and good sitting dynamics, standing and good minus standing dynamic with improved upper extremity endurance. Physical therapy has transitioned from 102 feet ambulation and decreased endurance along with prior reported balance deficits to able to do regular program of exercises and modified independent in supine to sit, sit to supine, standby assistance in other transfers, and able to ambulate 162 feet with front wheeled walker and marked improvement in her overall endurance. Speech therapy progress was made prior to entering the unit. DISCHARGE MEDICATIONS: - magnesium chloride 128 mg daily - sodium chloride 1 gram three times a day - Tylenol 650 mg by mouth every four hours as needed for pain or fever - amiodarone 200 mg daily - Eliquis 5 mg twice a day - enteric coated aspirin 81 mg daily - Coreg 3.125 mg twice a day - Colace 100 mg twice a day - insulin sliding scale before food and nightly - Paxil 30 mg tablets two tablets or 60 mg at bedtime - simvastatin 20 mg at bedtime THe patient also underwent continuing skin care on her toe lesion and further followup and treatment will be per her primary care, and she may be referred back to the wound care clinic for them. The patient without any complications during admission. Discharge plan: The patient is returned to seeing her primary care provider at [facility] within 2 weeks to have CBC and BMP and magnesium checked twice a week and have her primary care at the clinic notified of results of that management and treatment. The patient is discharged to [facility] ([facility]) where she will now be on the first floor and not on a second floor room, and will be restarting her life hab, along with receiving physical therapy (PT) and occupational therapy (OT) evaluations and treatments. TIME SPENT ON DISCHARGE: Greater than 35 minutes.
[2017-02-01] MEDS ORDERED: INSUDET SC (15:11)
[2017-02-01] MEDS ORDERED: METF10004 PO (15:14)
[2017-02-01] MEDS ORDERED: INGREZZA PO (15:14)
[2017-02-01] MEDS ORDERED: CALCTAB74 PO (15:14)
[2017-02-01] MEDS ORDERED: LOPE2TAB3 PO (15:14)
[2017-02-01] MEDS ORDERED: RISP1TAB42 PO (15:14)
[2017-02-01] MEDS ORDERED: LISI2.5T3 PO (15:14)
[2017-02-01] MEDS ORDERED: MULTPOW PO (15:14)
== END 2016-11-22 12:55 | DRG 949 ==
LOC: M PM&R 11:30
PROVIDERS: ADMIT Physical Medicine & Rehabilitation; ATTEND Physical Medicine & Rehabilitation
DX: S70.02XD Contusion of left hip, subsequent encounter (principal); E87.1 Hypo-osmolality and hyponatremia; I50.32 Chronic diastolic (congestive) heart failure; E11.9 Type 2 diabetes mellitus without complications; I48.91 Unspecified atrial fibrillation; I25.10 Atherosclerotic heart disease of native coronary artery without angina pectoris; E78.5 Hyperlipidemia, unspecified; I11.0 Hypertensive heart disease with heart failure; E83.42 Hypomagnesemia; D64.9 Anemia, unspecified; S42.002D Fracture of unspecified part of left clavicle, subsequent encounter for fracture with routine healing; F70 Mild intellectual disabilities; Z79.82 Long term (current) use of aspirin; Z79.01 Long term (current) use of anticoagulants; Z79.899 Other long term (current) drug therapy; Z90.49 Acquired absence of other specified parts of digestive tract; Z90.710 Acquired absence of both cervix and uterus; W10.9XXD Fall (on) (from) unspecified stairs and steps, subsequent encounter; Z95.0 Presence of cardiac pacemaker; Y92.199 Unspecified place in other specified residential institution as the place of occurrence of the external cause; Y99.9 Unspecified external cause status

== ENCOUNTER → 2016-11-23 | Outpatient (REF) | payer MEDICARE, MEDICAID ==
[~2016-11-23] MED LIST changes: +CALCTAB74 PO; +INGREZZA PO; +LOPE2TAB3 PO; +MULTPOW PO; +[UNRECOGNIZED DRUG - OTHER]; +[UNRECOGNIZED DRUG - OTHER]; +[UNRECOGNIZED DRUG - OTHER]; +[UNRECOGNIZED DRUG - SUPPLY]
[2016-11-23 16:49] LABS: MEAN CORPUSCULAR HEMOGLOBIN 31.6 pg (27.0-33.0); MEAN CORPUSCULAR HGB CONC 31.6 g/dl (32.0-36.5); MEAN CORPUSCULAR VOLUME 99.9 fl (80.0-96.0); RED CELL DISTRIBUTION WIDTH 18.8 % (11.5-14.5); WHITE BLOOD COUNT 6.6 K/mm3 (4.0-10.0)
[2016-11-23 16:50] LABS: ANION GAP 11 MEQ/L (8-16); BLOOD UREA NITROGEN 19 MG/DL (7-18); CALCIUM LEVEL 7.9 MG/DL (8.8-10.2); CARBON DIOXIDE LEVEL 24 MEQ/L (21-32); CHLORIDE LEVEL 100 MEQ/L (98-107); CREATININE FOR GFR 0.75 MG/DL (0.55-1.02); GLOMERULAR FILTRATION RATE > 60.0 (>45); GLUCOSE, FASTING 231 MG/DL (80-110); MAGNESIUM LEVEL 1.8 MG/DL (1.8-2.4); POTASSIUM SERUM 4.1 MEQ/L (3.5-5.1); SODIUM LEVEL 135 MEQ/L (136-145)
== END ==
LOC: M LAB REF 16:05
PROVIDERS: ATTEND Physical Medicine & Rehabilitation
DX: S30.1XXA Contusion of abdominal wall, initial encounter (principal); X58.XXXA Exposure to other specified factors, initial encounter; Y92.9 Unspecified place or not applicable; Y93.9 Activity, unspecified; Y99.9 Unspecified external cause status

== ENCOUNTER → 2016-11-28 | Outpatient (CLI) | payer MEDICARE, MEDICAID ==
[2016-11-28 13:13] LABS: MEAN CORPUSCULAR HEMOGLOBIN 32.3 pg (27.0-33.0); MEAN CORPUSCULAR HGB CONC 33.2 g/dl (32.0-36.5); MEAN CORPUSCULAR VOLUME 97.3 fl (80.0-96.0); RED CELL DISTRIBUTION WIDTH 18.3 % (11.5-14.5); WHITE BLOOD COUNT 5.9 K/mm3 (4.0-10.0)
[2016-11-28 13:39] LABS: ANION GAP 12 MEQ/L (8-16); BLOOD UREA NITROGEN 21 MG/DL (7-18); CALCIUM LEVEL 7.8 MG/DL (8.8-10.2); CARBON DIOXIDE LEVEL 18 MEQ/L (21-32); CHLORIDE LEVEL 108 MEQ/L (98-107); CREATININE FOR GFR 0.81 MG/DL (0.55-1.02); GLOMERULAR FILTRATION RATE > 60.0 (>45); GLUCOSE, FASTING 89 MG/DL (80-110); POTASSIUM SERUM 3.8 MEQ/L (3.5-5.1); SODIUM LEVEL 138 MEQ/L (136-145)
== END ==
LOC: M LAB 12:51
PROVIDERS: ATTEND Physical Medicine & Rehabilitation
DX: E11.65 Type 2 diabetes mellitus with hyperglycemia (principal); R19.5 Other fecal abnormalities; L85.3 Xerosis cutis; E83.42 Hypomagnesemia; W10.8XXS Fall (on) (from) other stairs and steps, sequela; Y92.89 Other specified places as the place of occurrence of the external cause; Y93.89 Activity, other specified; Y99.8 Other external cause status

== ENCOUNTER → 2016-11-30 | Outpatient (REF) | payer MEDICARE, MEDICAID ==
[2016-11-30 19:33] LABS: MEAN CORPUSCULAR HEMOGLOBIN 31.8 pg (27.0-33.0); MEAN CORPUSCULAR HGB CONC 32.6 g/dl (32.0-36.5); MEAN CORPUSCULAR VOLUME 97.4 fl (80.0-96.0); RED CELL DISTRIBUTION WIDTH 17.9 % (11.5-14.5)
[2016-11-30 20:14] LABS: ANION GAP 12 MEQ/L (8-16); BLOOD UREA NITROGEN 20 MG/DL (7-18); CALCIUM LEVEL 8.1 MG/DL (8.8-10.2); CARBON DIOXIDE LEVEL 18 MEQ/L (21-32); CHLORIDE LEVEL 110 MEQ/L (98-107); CREATININE FOR GFR 0.77 MG/DL (0.55-1.02); GLOMERULAR FILTRATION RATE > 60.0 (>45); GLUCOSE, FASTING 67 MG/DL (80-110); MAGNESIUM LEVEL 1.9 MG/DL (1.8-2.4); POTASSIUM SERUM 4.2 MEQ/L (3.5-5.1); SODIUM LEVEL 140 MEQ/L (136-145)
== END ==
LOC: M LABDRAWP 18:02
PROVIDERS: ATTEND Physical Medicine & Rehabilitation
DX: E11.65 Type 2 diabetes mellitus with hyperglycemia (principal); R19.5 Other fecal abnormalities; L85.3 Xerosis cutis; E83.42 Hypomagnesemia; W10.8XXS Fall (on) (from) other stairs and steps, sequela; Y92.89 Other specified places as the place of occurrence of the external cause; Y93.89 Activity, other specified; Y99.8 Other external cause status
CPT/HCPCS: 36415; 80048; 83735; 85027; G0463

== ENCOUNTER → 2016-12-01 | Outpatient (REF) | payer MEDICARE, MEDICAID | LOC: M SFHCPLAZ 11:02 | PROVIDERS: ATTEND Neuromusculoskeletal Medicine & OMM | DX: R19.5 Other fecal abnormalities (principal) ==

== ENCOUNTER → 2016-12-13 | Outpatient (CLI) | payer MEDICARE, MEDICAID ==
--- NOTE | 2016-12-14 09:59 | DEXA ---
AP SPINE L1 - L4 1.123 -0.6 1.1 LT FEMUR TOTAL 0.847 -1.3 0.1 RT FEMUR TOTAL 0.868 -1.1 0.3 TOTAL BODY TOTAL OTHER DUAL FEMUR FRAX* ASSESSMENT Risk factors: Secondary osteoporosis (insulin-dependent diabetic). 10 year probability of fracture Major osteoporotic fracture 9.3 % Hip fracture 1.1 % COMMENTS: Normal bone densitometry of the spine. There is low bone density of the hips. The density of the spine has increased 11.1% since the initial exam on 2002. The spine density is increased 2.8% since the most recent exam on 02/02/2011. The density of the left hip has decreased 10.5% since the initial exam on 2002. The density of the left hip has decreased 11.1% since the most recent exam on . The density of the right hip has decreased 8.1% since the initial exam on 2002. The density right hip has decreased 10.2% since the most recent exam on 2010. FOLLOW-UP: Recommendation for the next bone density exam: 2 years. HIMANSHU
== END ==
LOC: M WHC 10:53
PROVIDERS: ATTEND Family Medicine
DX: Z13.820 Encounter for screening for osteoporosis (principal); M81.0 Age-related osteoporosis without current pathological fracture; M85.80 Other specified disorders of bone density and structure, unspecified site

== ENCOUNTER → 2016-12-27 | Outpatient (CLI) | payer MEDICARE, MEDICAID ==
[2016-12-27 10:18] LABS: BASO % 0.5 % (0.0-1.0); EOS # 0.2 K/mm3 (0.0-0.50); EOS % 2.9 % (0.0-3.0); LARGE UNSTAINED CELL # 0.1 K/mm3 (0.0-0.4); LARGE UNSTAINED CELL % 1.7 % (0.0-4.0); LYMPH # 0.7 K/mm3 (1.5-4.5); LYMPH % 11.7 % (24.0-44.0); MEAN CORPUSCULAR HGB CONC 33.3 g/dl (32.0-36.5); MONO # 0.3 K/mm3 (0.0-0.8); MONO % 5.3 % (0.0-5.0); NEUTROPHILS # 4.6 K/mm3 (1.8-7.7); NEUTROPHILS % 77.9 % (36.0-66.0); PLATELET COUNT, AUTOMATED 233 k/mm3 (150-450); RED CELL DISTRIBUTION WIDTH 14.9 % (11.5-14.5)
--- NOTE | 2016-12-27 10:18 | REP ---
CT ABDOMEN PELVIS WITHOUT CONTRAST: 12/27/2016 COMPARISON: 11/06/2016 CT. CLINICAL HISTORY: Left flank hematoma. FINDINGS: CT ABDOMEN: No oral or IV contrast given. The lung bases show minor dependent atelectatic change and linear fibrotic changes bilaterally without effusion or acute infiltrate. There is cardiomegaly with multilead pacer. Left atrial and ventricular enlargement noted. There is no hiatal hernia, pericardial thickening or effusion. There is no hepatosplenomegaly, focal hepatic or splenic lesion nor intrahepatic biliary dilatation. Clips from prior cholecystectomy are seen. Adrenal glands are normal. Some lobation of the kidneys. Linear calcification in the interpolar lower pole junction of the right kidney without hydronephrosis. Both kidneys show lobation. The ureters show normal course to the bladder without dilatation or stone. The abdominal aorta is without aneurysm but has a few calcifications. No periaortic or other retroperitoneal pathologic sized lymphadenopathy. Small bowel loops and colon without dilatation or stricture. Scattered stool and gas in the colon without signs of colitis or diverticulitis. Fluid-filled small bowel loops are not dilated. Bone window review of all CT slice levels in the abdomen pelvis shows no evidence of free air or perforation. No focal splenic lesion and no ascites. Bone windows show minor superior endplate depression of L1 unchanged, T11 superior endplate grade 1 depression is also unchanged. Remainder of the lumbar vertebral levels intact. Disc space is narrowed at L3-4. Posterior elements intact. Visualized ribs intact. The subcutaneous tissues of the left lateral flank region with the previous homogeneous finding consistent with hematoma. There is now a 17.8 x 16.8 x 10.5 cm low density well-circumscribed mass consistent with hematoma. I do not see hyperdensity to suggest new or acute component of the hematoma with adjacent subcutaneous edema. No other flank mass identified. This is significantly larger than on the previous study where it measured about 11.6 x 6.6 x 5.6 cm with surrounding patchy edema in the subcutaneous fat. CT PELVIS: The sacrum, SI joints, iliac bones, acetabuli, hips and ischia are without acute finding or fracture. Minimal degenerative changes are noted in these bones. Distal ureters without dilatation or stone. Bladder only partially filled with some mild wall thickening anteriorly. No stone or mass evident. Uterus absent with the vaginal cuff intact. There is no pelvic ascites. Diverticulosis of the distal left colon and sigmoid without diverticulitis. No inflammatory changes about the cecum. Small bowel loops grossly intact. No ventral or inguinal hernia. IMPRESSION: 1. Significant interval increase in size of the left flank mass. It is lower density than on the study of 11/06/2016 and suggest hematoma in stages of resorption. It now measures 17.8 x 16.8 x 10.5 cm, significant increase in the size of the major collection from 11.6 x 6.6 x 5.6 cm. Minimal adjacent subcutaneous edema around it particularly anteriorly. 2. Status post cholecystectomy and lower pole renal stone on the right without hydronephrosis, hydroureter or ureteral stone. 3. No hepatosplenomegaly, focal hepatic or splenic mass, ascites, adenopathy or other acute finding. No visible bony lesion or fracture. 4. Multi lead pacer. Some cardiomegaly with left atrial and left ventricular enlargement. Signed by Chu Lynn MD 12/27/2016 07:04 P
[2016-12-27 10:20] LABS: INR 1.16
== END ==
LOC: M RAD 09:04
PROVIDERS: ATTEND Family Medicine
DX: T14.8 Other injury of unspecified body region (principal); I51.7 Cardiomegaly; N20.0 Calculus of kidney; Z95.0 Presence of cardiac pacemaker; Z90.49 Acquired absence of other specified parts of digestive tract

== ENCOUNTER → 2017-01-03 | Outpatient (CLI) | payer MEDICARE, MEDICAID ==
[~2017-01-03] MED LIST changes: +LIDOCAINE 1% MDV 20ML VIAL As Ordered ONE
--- NOTE | 2017-01-03 16:56 | REP ---
ULTRASOUND GUIDED LEFT FLANK HEMATOMA DRAIN The risks and benefits of the procedure were explained to the patient and informed consent was obtained by the healthcare proxy. The patient has a history of a left flank hematoma measuring 17.8 x 16.8 x 10.5 cm seen on a previous CT scan dated 12/27/2016 The left flank hematoma was localized using ultrasound guidance. The skin was prepped and draped in a sterile fashion. 1% Xylocaine was used as a local anesthetic. using ultrasound guidance a 14 F Resolve catheter was inserted using trocar technique. 1,225 mL of purple colored fluid was withdrawn with a sample sent to the lab for analysis. the catheter was affixed to the skin and a sterile dressing was applied. the catheter was connected to a gravity drainage bag. The patient tolerated the procedure well and there were no immediate complications. After the appropriate amount of monitored convalescence, the patient was discharged from the department. Reviewed by CHANTE Gibbs 01/03/2017 02:46 PSigned by Ion Mojica MD 01/03/2017 04:48 P
== END ==
LOC: M RADPRO 12:17
PROVIDERS: ATTEND Surgery
DX: M79.81 Nontraumatic hematoma of soft tissue (principal); Z88.2 Allergy status to sulfonamides; Z95.0 Presence of cardiac pacemaker; Z79.82 Long term (current) use of aspirin; Z79.899 Other long term (current) drug therapy; Z79.84 Long term (current) use of oral hypoglycemic drugs; Z79.4 Long term (current) use of insulin
CPT/HCPCS: 10030; 87070; 87075; 87205; C1729

== ENCOUNTER → 2017-01-10 | Outpatient (CLI) | payer MEDICARE, MEDICAID ==
[~2017-01-10] MED LIST changes: -LIDOCAINE 1% MDV 20ML VIAL As Ordered ONE
--- NOTE | 2017-01-10 13:07 | REPMRS ---
Patient History The patient states she has not had a clinical breast exam in over a year. Patient is nulliparous. No known family history of cancer. Digital Woman Screen Mammo: January 10, 2017 - Exam #: [id number] Bilateral CC and MLO view(s) were taken. Technologist: Tonia Boyle, Technologist Prior study comparison: November 09, 2015, left breast digital mamm[facility] diagnostic unilateral[facility] October 12, 2015, digital woman screen mammo performed at [facility]. FINDINGS: There are scattered fibroglandular densities. There is a fairly symmetric fibroglandular pattern in both breasts. There has been no interval development of masses, areas of architectural distortion or clusters of microcalcifications typical of malignancy. ASSESSMENT: BI-RADS/ACR category 2 mammogram. Benign finding(s). Recommendation Routine screening mammogram of both breasts in 1 year (for women over age 40). This mammogram was interpreted with the aid of an FDA-approved computer-aided dectection system. Electronically Signed By: Ion Mojica MD 01/10/17 [id number]
== END ==
LOC: M WHC 11:26
PROVIDERS: ATTEND Neuromusculoskeletal Medicine & OMM
DX: Z12.31 Encounter for screening mammogram for malignant neoplasm of breast (principal)

== ENCOUNTER 2017-02-09 11:55 | Day surgery (SDC) | payer MEDICARE, MEDICAID ==
[2017-02-09] VITALS (7 sets, daily range): BP systolic 102–170; BP diastolic 57–90
[~2017-02-09] VITALS: Ht 154.9 cm; Wt 66.2 kg
[~2017-02-09 11:55] MED LIST changes: +LIDOCAINE 2% INJ 100 MG/5 ML SDV (FOR ANES.) As Ordered ONE; +PROPOFOL 200 MG/20 ML VIAL As Ordered ONE; -[UNRECOGNIZED DRUG - OTHER]; -[UNRECOGNIZED DRUG - OTHER]; -[UNRECOGNIZED DRUG - OTHER]; -[UNRECOGNIZED DRUG - SUPPLY]
[2017-02-09] MEDS ORDERED: LR 1,000 ML IV ONE (12:00)
[2017-02-09] MEDS ORDERED: PROPOFOL 200 MG/20 ML VIAL As Ordered ONE (14:06)
[2017-02-09] MEDS ORDERED: MIDAZOLAM INJ 2 MG/2 ML VIAL (J2250) As Ordered ONE (14:19)
[2017-02-09] MEDS ORDERED: fentaNYL 100 MCG/2 ML INJECTION (J3010) As Ordered ONE (14:19)
[2017-02-09] MEDS ORDERED: ZOSYN 3.375 GM VIAL (J2543) As Ordered ONE (15:04)
[2017-02-09] MEDS ORDERED: BUPIVACAINE HCL 0.25% 30 ML VIAL As Ordered ONE (15:09)
[2017-02-09] MEDS ORDERED: LIDOCAINE 1% SDV INJ 30 ML VIAL As Ordered ONE (15:09)
[2017-02-09] MEDS ORDERED: PIPERACILLIN/TAZOBACTAM SOD 3.375 GM in D5W MINI-BAG PLUS 50 ML IV ONE (15:15)
[2017-02-09] MEDS ORDERED: ONDANSETRON 4MG/2ML VIAL (J2405) IV PRN ×2 (16:45)
[2017-02-09] MEDS ORDERED: LR 1,000 ML IV SCH (16:45)
[2017-02-09] MEDS ORDERED: KETOROLAC 30 MG/ML VIAL (J1885) IV PRN (16:45)
[2017-02-09] MEDS ORDERED: NORCO, ANEXSIA 5/325MG TABLET (HYDROcodone/ACETAMINOPHEN) PO PRN (16:45)
[2017-02-09] MEDS ORDERED: fentaNYL 100 MCG/2 ML INJECTION (J3010) IV PRN (16:45)
[2017-02-09] MEDS ORDERED: MORPHINE 2 MG/ML 1ML SYRINGE IV PRN (16:45)
[2017-02-09] MEDS ORDERED: HumaLOG INSULIN (NovoLOG) PER UNIT SC SCH ×2 (17:30→21:00)
[2017-02-09] MEDS: NORCO, ANEXSIA 5/325MG TABLET (HYDROcodone/ACETAMINOPHEN) PO PRN (19:20)
[2017-02-09] MEDS: PARoxetine 20 MG TAB PO SCH (20:28)
[2017-02-09] MEDS: CARVedilol 3.125 MG TAB PO SCH (20:28)
[2017-02-09] MEDS: SIMVASTATIN 20 MG TAB PO SCH (20:28)
[2017-02-09] MEDS: SENOKOT S TAB PO SCH (20:28)
[2017-02-09] MEDS: LEVEMIR (INSULIN DETEMIR) 1 UNITS/0.01ML SC SCH (20:28)
[2017-02-09] MEDS: SODIUM CHLORIDE 1 GM TAB PO SCH (21:44)
[2017-02-10] VITALS (7 sets, daily range): BP systolic 108–152; BP diastolic 61–82
[2017-02-10] MEDS: NORCO, ANEXSIA 5/325MG TABLET (HYDROcodone/ACETAMINOPHEN) PO PRN (01:55)
[2017-02-10 06:38] LABS: BASO % 0.6 % (0.0-1.0); EOS # 0.1 K/mm3 (0.0-0.50); LARGE UNSTAINED CELL # 0.1 K/mm3 (0.0-0.4); LARGE UNSTAINED CELL % 1.8 % (0.0-4.0); LYMPH # 0.7 K/mm3 (1.5-4.5); LYMPH % 10.3 % (24.0-44.0); MEAN CORPUSCULAR HEMOGLOBIN 31.1 pg (27.0-33.0); MEAN CORPUSCULAR HGB CONC 32.1 g/dl (32.0-36.5); MEAN CORPUSCULAR VOLUME 96.8 fl (80.0-96.0); MONO # 0.5 K/mm3 (0.0-0.8); MONO % 8.6 % (0.0-5.0); NEUTROPHILS # 4.4 K/mm3 (1.8-7.7); NEUTROPHILS % 77.7 % (36.0-66.0); PLATELET COUNT, AUTOMATED 238 k/mm3 (150-450); RED CELL DISTRIBUTION WIDTH 13.7 % (11.5-14.5); WHITE BLOOD COUNT 5.6 K/mm3 (4.0-10.0)
[2017-02-10 06:48] LABS: ANION GAP 8 MEQ/L (8-16); BLOOD UREA NITROGEN 16 MG/DL (7-18); CALCIUM LEVEL 8.2 MG/DL (8.8-10.2); CARBON DIOXIDE LEVEL 30 MEQ/L (21-32); CHLORIDE LEVEL 98 MEQ/L (98-107); CREATININE FOR GFR 0.87 MG/DL (0.55-1.02); GLOMERULAR FILTRATION RATE > 60.0 (>45); GLUCOSE, FASTING 246 MG/DL (80-110); SODIUM LEVEL 136 MEQ/L (136-145)
[2017-02-10] MEDS: ACETAMINOPHEN TAB 650MG DOSE (2X325MG) PO PRN ×2 (08:30→22:03)
[2017-02-10] MEDS: ENOXAPARIN 40 MG/0.4 ML SYRINGE (J1650) SC SCH (08:31)
[2017-02-10] MEDS: LEVEMIR (INSULIN DETEMIR) 1 UNITS/0.01ML SC SCH ×2 (08:31→22:03)
[2017-02-10] MEDS: metFORMIN (GLUCOPHAGE) 1000 MG TABLET PO SCH ×2 (08:31→18:07)
[2017-02-10] MEDS: AMIODARONE 200 MG TAB (PACERONE) PO SCH (08:31)
[2017-02-10] MEDS: LISINOPRIL *2.5 MG* TAB PO SCH (08:32)
[2017-02-10] MEDS: CARVedilol 3.125 MG TAB PO SCH ×2 (08:32→22:03)
[2017-02-10] MEDS: SENOKOT S TAB PO SCH ×2 (08:32→22:02)
[2017-02-10] MEDS: HumaLOG INSULIN (NovoLOG) PER UNIT SC SCH ×3 (10:24→18:07)
[2017-02-10] MEDS: SODIUM CHLORIDE 1 GM TAB PO SCH ×3 (10:38→22:02)
[2017-02-10] MEDS: risperiDONE 1 MG TAB PO SCH (10:38)
[2017-02-10] MEDS: MAGNESIUM CHLORIDE 64 MG TABCR (SLO MAG) PO SCH (10:38)
--- NOTE | 2017-02-10 14:48 | IPNPDOC ---
Subjective General Date/Time Seen The patient was seen on 02/10/17 at 11:36. Subject Chief Complaint/History The patient is a 66-year-old female admitted with a reason for visit of Left Flank Hematoma. Patient went to OR yesterday to evacuate hematoma, clean out the cavity/ capsule. She looks comfortable this morning. Afebrile. Current Medications Current Medications Current Medications Acetaminophen (Tylenol Tab) 650 mg Q4HP PRN PO MILD PAIN or TEMP > 101 Last administered on 02/10/17 08:30; Start 02/09/17 at 16:45; Stop 03/11/17 at 16: 44 Acetaminophen/ Hydrocodone Bitart ([place], Anexsia 5/325) 1 tab Q4HP PRN PO MODERATE PAIN (PS 5-7) Last administered on 02/10/17 01:55; Start 02/09/17 at 16:45; Stop 02/16/17 at 16:44 Acetaminophen/ Hydrocodone Bitart ([place], Anexsia 5/325) 2 tab Q6HP PRN PO SEVERE PAIN (PS 8-10); Start 02/09/17 at 16:45; Stop 02/16/17 at 16:44 Amiodarone HCl ([place], Cordarone) 200 mg DAILY PO Last administered on 08:31; Start 02/10/17 at 09:00; Stop 03/12/17 at 08:59 Carvedilol (COReg) 3.125 mg BID PO Last administered on 02/10/17 08:32; Start 02/09/17 at 21:00; Stop 03/11/17 at 20:59 Enoxaparin Sodium (Lovenox) 40 mg DAILY SC Last administered on 02/10/17 08:31 ; Start 02/10/17 at 09:00; Stop 02/15/17 at 08:59 Fentanyl Citrate (Sublimaze) 25 mcg Q5MP PRN IV MODERATE PAIN (PS 4-7); Start 02/09/17 at 16:45; Stop 02/09/17 at 17:45; Status DC Insulin Detemir (Levemir Insulin) 6 units BID SC Last administered on 08:31; Start 02/09/17 at 21:00; Stop 03/11/17 at 20:59 Insulin Human Lispro (HumaLOG INSULIN) AC SC ; Start 02/09/17 at 17:30; Stop at 09:15; Status DC Insulin Human Lispro (HumaLOG INSULIN) QHS SC ; Start 02/09/17 at 21:00; Stop 02/10/17 at 09:15; Status DC Insulin Human Lispro (HumaLOG INSULIN) See Protocol Table AC SC Last administered on 02/10/17t 10:24; Start 02/10/17 at 07:30; Stop 03/12/17 at 07: 29 Insulin Human Lispro (HumaLOG INSULIN) See Protocol Table QHS SC ; Start at 21:00; Stop 03/12/17 at 20:59 Ketorolac Tromethamine (ToRADol) 30 mg Q6HP PRN IV MILD/MODERATE PAIN (PS 1-7) ; Start 02/09/17 at 16:45; Stop 02/14/17 at 16:44 Lactated Ringer's 1,000 ml @ 75 mls/hr [id number] IV ; Start 02/09/17 at 16:45; Stop 02/09/17 at 17:45; Status DC Lisinopril (Prinivil) 2.5 mg DAILY PO Last administered on 02/10/17 08:32; Start 02/10/17 at 09:00; Stop 03/12/17 at 08:59 Magnesium Chloride (Slow-Mag) 128 mg DAILY PO Last administered on 02/10/17 10 :38; Start 02/10/17 at 09:00; Stop 03/12/17 at 08:59 Metformin HCl (Glucophage) 1,000 mg BID@0800,1800 PO Last administered on 08:31; Start 02/10/17 at 08:00; Stop 03/12/17 at 07:59 Morphine Sulfate (Morphine Sulfate Inj) 2 mg Q2HP PRN IV SEVERE PAIN (PS 8-10) ; Start 02/09/17 at 16:45; Stop 02/16/17 at 16:44 Ondansetron HCl (ZOFRAN INJection) 4 mg Q4HP PRN IV NAUSEA OR VOMITING; Start 02/09/17 at 16:45; Stop 02/09/17 at 17:45; Status DC Ondansetron HCl (ZOFRAN INJection) 4 mg Q6HP PRN IV NAUSEA OR VOMITING; Start 02/09/17 at 16:45; Stop 03/11/17 at 16:44 Paroxetine HCl (PAXil) 60 mg QHS PO Last administered on 02/09/17 20:28; Start 02/09/17 at 21:00; Stop 03/11/17 at 20:59 Risperidone (RisperDAL) 1 mg QAM PO Last administered on 02/10/17 10:38; Start 02/10/17 at 09:00; Stop 03/12/17 at 08:59 Senna/Docusate Sodium (Senokot S) 1 tab BID PO Last administered on 02/10/17 08:32; Start 02/09/17 at 21:00; Stop 03/11/17 at 20:59 Simvastatin (Zocor) 20 mg QHS PO Last administered on 02/09/17 20:28; Start at 21:00; Stop 03/11/17 at 20:59 Sodium Chloride (Sodium Chloride) 1 gm TID PO Last administered on 02/10/17 10 :38; Start 02/09/17 at 21:00; Stop 03/11/17 at 20:59 Allergies Coded Allergies: Sulfa Antibiotics (Verified Adverse Reaction, Mild, N/V, 02/09/17) Objective Physical Examination Examination GENERAL APPEARANCE:Patient seen, laying in bed, awake, alert, and oriented. Comfortable, in no acute distress. SKIN: Warm and moist. HEENT: Normocephalic, atraumatic. [place] palpebral conjunctiva, anicteric sclerae. Lips and mucosa appear moist. NECK: Supple, no thyromegaly. No obvious jugular venous distention. LUNGS: Clear to auscultation bilaterally. No wheezing appreciated. HEART: No chest wall abnormalities. Regular rate and rhythm with no murmurs appreciated., pacemaker present ABDOMEN: Abdomen is round, soft, nondistended. Her postoperative dressings were saturated with serosanguineous fluid mildly. On removal, the dressing and packing were removed. Serosanguineous drainage, no purulent drainage. Patient comfortable during the dressing change EXTREMITIES: Extremities have no deformities. No edema identified. Vital Signs Vital Signs Date Time Temp Pulse Resp B/P (MAP) Pulse Ox O2 Delivery O2 Flow Rate FiO2 02/10/17 08:32 60 178/88 02/10/17 06:00 96.7 16 93 Room Air 02/09/17 16:45 2 I&Os I&O- Last 24 Hours up to 6 AM 02/10/17 05:59 Intake Total 1300 ml Output Total 0 ml Balance 1300 ml Laboratory Data Labs 24H Laboratory Tests 2 02/09/17 12:39: Bedside Glucose (Misc Panel) 113 02/09/17 17:57: Bedside Glucose (Misc Panel) 96 02/09/17 19:47: Bedside Glucose (Misc Panel) 166H 02/10/17 05:50: White Blood Count 5.6, Red Blood Count 3.76L, Hemoglobin 11.7L, Hematocrit 36.4 , Mean Corpuscular Volume 96.8H, Mean Corpuscular Hemoglobin 31.1, Mean Corpuscular Hemoglobin Concent 32.1, Red Cell Distribution Width 13.7, Platelet Count 238, Neutrophils (%) (Auto) 77.7H, Lymphocytes (%) (Auto) 10.3L, Monocytes (%) (Auto) 8.6H, Eosinophils (%) (Auto) 1.0, Basophils (%) (Auto) 0.6 , Neutrophils # (Auto) 4.4, Lymphocytes # (Auto) 0.7L, Monocytes # (Auto) 0.5, Eosinophils # (Auto) 0.1, Basophils # (Auto) 0.0, Large Unclassified Cells % 1.8 , Large Unclassified Cells # 0.1, Anion Gap 8, Glomerular Filtration Rate > 60.0 , Blood Urea Nitrogen 16, Creatinine 0.87, Sodium Level 136, Potassium Level 4.0 , Chloride Level 98, Carbon Dioxide Level 30, Calcium Level 8.2L CBC/BMP Laboratory Tests 02/10/17 05:50 Red Blood Count 3.76 L, Mean Corpuscular Volume 96.8 H, Mean Corpuscular Hemoglobin 31.1, Mean Corpuscular Hemoglobin Concent 32.1, Red Cell Distribution Width 13.7, Neutrophils (%) (Auto) 77.7 H, Lymphocytes (%) (Auto) 10.3 L, Monocytes (%) (Auto) 8.6 H, Eosinophils (%) (Auto) 1.0, Basophils (%) ( Auto) 0.6, Neutrophils # (Auto) 4.4, Lymphocytes # (Auto) 0.7 L, Monocytes # ( Auto) 0.5, Eosinophils # (Auto) 0.1, Basophils # (Auto) 0.0, Calcium Level 8.2 L Microbiology Microbiology 02/09/17 Gram Stain - Final, Resulted 02/09/17 Wound Culture, Resulted Pending 02/09/17 Anaerobic Culture, Resulted Pending Impression POD 1 evacuation of left flank hematoma Her packing was changed with 1 inch iodoform. She has a moderate amount of drainage but they're all serosanguineous, no longer purulent and no longer foul smelling. Overlying skin is normal without signs of erythema. Thus I will hold off on antibiotics. Continue with daily dressing changes. On my conversation with the [facility] whom I asked the [facility] people to call. They will not have anybody that we'll be able to do the packing changes during the weekend thus we will keep the patient here for dressing changes and will make arrangements on Sunday. Plan / VTE VTE Prophylaxis Ordered?: Yes CLARK NORWOOD MD Feb 10, 2017 11:37
[2017-02-10] MEDS ORDERED: DEXTROSE 50% 50 ML SYRINGE As Ordered ONE (15:31)
[2017-02-10] MEDS ORDERED: GLUCOSE 4 GM CHEW TABLET PO PRN (15:45)
[2017-02-10] MEDS ORDERED: DEXTROSE 50% 50 ML SYRINGE IV PRN (15:45)
[2017-02-10] MEDS ORDERED: GLUCAGON FOR INJ 1 MG VIAL (J1610) SC PRN (15:45)
[2017-02-10] MEDS: KCL 20MEQ IN D5/0.45NS 1000ML 1,000 ML IV SCH (15:57)
[2017-02-10] MEDS ORDERED: HumaLOG INSULIN (NovoLOG) PER UNIT SC SCH (21:00)
[2017-02-10] MEDS: PARoxetine 20 MG TAB PO SCH (22:02)
[2017-02-10] MEDS: SIMVASTATIN 20 MG TAB PO SCH (22:03)
[2017-02-11] MEDS: KCL 20MEQ IN D5/0.45NS 1000ML 1,000 ML IV SCH (02:54)
[2017-02-11 06:00] VITALS: BP 110/60
[2017-02-11] MEDS: HumaLOG INSULIN (NovoLOG) PER UNIT SC SCH ×2 (07:30→11:43)
[2017-02-11] MEDS: AMIODARONE 200 MG TAB (PACERONE) PO SCH (10:31)
[2017-02-11] MEDS: LISINOPRIL *2.5 MG* TAB PO SCH (10:31)
[2017-02-11] MEDS: SENOKOT S TAB PO SCH (10:31)
[2017-02-11] MEDS: SODIUM CHLORIDE 1 GM TAB PO SCH (10:31)
[2017-02-11] MEDS: risperiDONE 1 MG TAB PO SCH (10:31)
[2017-02-11] MEDS: CARVedilol 3.125 MG TAB PO SCH (10:32)
[2017-02-11] MEDS: MAGNESIUM CHLORIDE 64 MG TABCR (SLO MAG) PO SCH (10:32)
[2017-02-11] MEDS: metFORMIN (GLUCOPHAGE) 1000 MG TABLET PO SCH (10:32)
[2017-02-11] MEDS: ENOXAPARIN 40 MG/0.4 ML SYRINGE (J1650) SC SCH (10:32)
[2017-02-11] MEDS: LEVEMIR (INSULIN DETEMIR) 1 UNITS/0.01ML SC SCH (10:33)
[2017-02-11] MEDS ORDERED: [UNRECOGNIZED DRUG - OTHER] (11:21)
[2017-02-11] MEDS ORDERED: [UNRECOGNIZED DRUG - SUPPLY] (11:21)
[2017-02-11] MEDS ORDERED: NORCOTAB PO (11:21)
[2017-02-11] MEDS ORDERED: [UNRECOGNIZED DRUG - OTHER] (11:21)
[2017-02-11] MEDS ORDERED: [UNRECOGNIZED DRUG - OTHER] (11:26)
--- NOTE | 2017-03-13 02:03 | ROOPDOC ---
[facility] Report Of Operation Report of Operation DATE OF PROCEDURE: 02/09/2017 PREPROCEDURE DIAGNOSES: Infected left flank hematoma. POSTPROCEDURE DIAGNOSES: Infected left flank hematoma. PROCEDURE: Evacuation left flank hematoma, debridement. SURGEON: Ellis Carvalho MD NURSE MIDWIFE/CLINICAL INSTRUCTOR: None ANESTHESIA: Monitored anesthesia care with placement of local anesthesia including Exparel at the end. ESTIMATED BLOOD LOSS: Approximately 30 mL. COMPLICATIONS: none REMARKS: 58-year-old female with mental retardation who fell on the stairs back in October while she was on Eliquis and subsequently developed a large left flank hematoma. We tried percutaneous drainage with mixed results but for the past 2 weeks was having some purulent drainage from the pigtail catheter. She is brought in to evacuate the infected hematoma. PROCEDURE NOTE: Foul-smelling, purulent substance was removed together with old clotted hematoma DESCRIPTION OF PROCEDURE: Patient was given a dose of Zosyn 3.375 g IV. She was brought to the operating room, placed on a semi-right lateral recumbent position. Monitoring leads were placed initially was given IV sedation. The area of the left flank hematoma was prepped and draped in usual sterile fashion after removal of the pigtail catheter. Local anesthesia with 1% lidocaine and 0.25% Marcaine mixture was used infiltrate the area around the palpable left flank fluctuant collection. About a 3-4 cm transverse incision was created close to the midportion of this collection. After taking this deep to subcutaneous tissue we entered the cavity of the hematoma and drained purulent fluid. Cultures were taken. The suction tip was inserted into the cavity and the out more semisolid and liquid content. A Gillis retractor was placed to visualize inside of the cavity. A laparotomy pad was placed to start debriding the wall and continued evacuation. We irrigated the cavity with saline until we got clear return. I used the Bovie scratchpad to debride the wall of the left flank hematoma circumferentially. Again the irrigated and temporarily packed the cavity for hemostasis. Tisseel fibrin glue was placed to help close the cavity and for hemostasis. At the end expiratory was widely infiltrated around the left flank for postoperative pain control. The cavity was packed with 1 inch saline moistened gauze, bulky 4 x 4' s and ABDs pads then used to cover the incision. Patient was promptly awakened and brought to recovery room stable. ELLIS CARVALHO MD Mar 13, 2017 02:03
== END 2017-02-11 13:46 | disposition home or self-care (01) ==
LOC: M SDC 11:55 → M MSPAV 18:15 → M SDC 02-11 13:46
PROVIDERS: ATTEND Surgery
DX: S30.1XXA Contusion of abdominal wall, initial encounter (principal); I49.5 Sick sinus syndrome; E10.40 Type 1 diabetes mellitus with diabetic neuropathy, unspecified; M81.0 Age-related osteoporosis without current pathological fracture; F32.9 Major depressive disorder, single episode, unspecified; E78.5 Hyperlipidemia, unspecified; R19.7 Diarrhea, unspecified; K62.5 Hemorrhage of anus and rectum; F41.9 Anxiety disorder, unspecified; K57.32 Diverticulitis of large intestine without perforation or abscess without bleeding; R29.898 Other symptoms and signs involving the musculoskeletal system; M12.9 Arthropathy, unspecified; S91.101D Unspecified open wound of right great toe without damage to nail, subsequent encounter; N28.9 Disorder of kidney and ureter, unspecified; Z88.2 Allergy status to sulfonamides; Z79.899 Other long term (current) drug therapy; Z79.4 Long term (current) use of insulin; Z79.84 Long term (current) use of oral hypoglycemic drugs; Z90.710 Acquired absence of both cervix and uterus; Z95.0 Presence of cardiac pacemaker; W10.8XXA Fall (on) (from) other stairs and steps, initial encounter; Y92.89 Other specified places as the place of occurrence of the external cause; Y99.8 Other external cause status
CPT/HCPCS: 10060; 36415; 80048; 85025; 87070; 87075; 87077; 87186; 87205; J0690; J1650; J2250; J2543; J3010

== ENCOUNTER 2017-02-19 17:22 | Emergency (ER) | payer MEDICARE, MEDICAID ==
[~2017-02-19] VITALS: Ht 162.6 cm; Wt 160.0 kg
[~2017-02-19 17:22] MED LIST changes: -LIDOCAINE 2% INJ 100 MG/5 ML SDV (FOR ANES.) As Ordered ONE; -PROPOFOL 200 MG/20 ML VIAL As Ordered ONE; +[UNRECOGNIZED DRUG - OTHER]; +[UNRECOGNIZED DRUG - OTHER]; +[UNRECOGNIZED DRUG - OTHER]; +[UNRECOGNIZED DRUG - SUPPLY]
[2017-02-19] MEDS ORDERED: INSUH10VL SC (17:42)
[2017-02-19 20:00] VITALS: BP 163/93
--- NOTE | 2017-02-20 06:25 | REP ---
LEFT HIP, AP PELVIS, THREE VIEWS: HISTORY: Fall. There is no acute fracture or dislocation. There is an old fracture of the left pubic bone. There is narrowing of the joint spaces with associated sclerosis. A calcified density is present lateral to the left hip joint. This represents ligamentous or tendon calcification. IMPRESSION: There is no acute fracture or dislocation. Signed by Adolfo Zuniga MD 02/20/2017 08:48 A
== END 2017-02-19 20:00 | disposition home or self-care (01) ==
LOC: EDSEX 17:22 → EDUNIT# 17:22 → EDBD 17:22 → M ED 17:22
DX: S70.02XA Contusion of left hip, initial encounter (principal); W01.198A Fall on same level from slipping, tripping and stumbling with subsequent striking against other object, initial encounter; Y92.019 Unspecified place in single-family (private) house as the place of occurrence of the external cause; Y93.89 Activity, other specified; Y99.8 Other external cause status; I10 Essential (primary) hypertension; Z79.4 Long term (current) use of insulin; Z79.84 Long term (current) use of oral hypoglycemic drugs; Z79.899 Other long term (current) drug therapy; Z88.2 Allergy status to sulfonamides; Z86.73 Personal history of transient ischemic attack (TIA), and cerebral infarction without residual deficits; Z95.0 Presence of cardiac pacemaker

== ENCOUNTER → 2017-02-20 | Outpatient (CLI) | payer MEDICARE, MEDICAID ==
[2017-02-20 11:29] LABS: MEAN CORPUSCULAR HEMOGLOBIN 31.6 pg (27.0-33.0); MEAN CORPUSCULAR VOLUME 98.8 fl (80.0-96.0); RED CELL DISTRIBUTION WIDTH 13.8 % (11.5-14.5); WHITE BLOOD COUNT 7.4 10^3/uL (4.0-10.0)
[2017-02-20 12:30] LABS: ALBUMIN 2.9 GM/DL (3.2-5.2); BILIRUBIN,TOTAL 0.5 MG/DL (0.2-1.0); CALCIUM LEVEL 8.7 MG/DL (8.8-10.2); CREATININE FOR GFR 1.01 MG/DL (0.55-1.02); MAGNESIUM LEVEL 1.5 MG/DL (1.8-2.4); POTASSIUM SERUM 4.5 MEQ/L (3.5-5.1); TOTAL PROTEIN 5.8 GM/DL (6.4-8.2)
== END ==
LOC: M LAB 09:47
PROVIDERS: ATTEND Physician Assistant
DX: I50.32 Chronic diastolic (congestive) heart failure (principal); I48.0 Paroxysmal atrial fibrillation

== ENCOUNTER → 2017-03-03 | Outpatient (REF) | payer MEDICARE, MEDICAID ==
[2017-03-03 15:48] LABS: CALCIUM OXALATE CRYSTALS LARGE
== END ==
LOC: M LAB REF 15:27
PROVIDERS: ATTEND Neuromusculoskeletal Medicine & OMM
DX: R50.9 Fever, unspecified (principal)

== ENCOUNTER → 2017-03-13 | Outpatient (CLI) | payer MEDICARE, MEDICAID ==
--- NOTE | 2017-03-13 14:29 | REP ---
Chest two views HISTORY: atrial fibrillation Comparison: 11/13/2016 The lungs are clear. The cardiac silhouette is enlarged. The pulmonary vasculature is normal in appearance. There is an old healed fracture of the distal left clavicle. A cardiac pacemaker is present. IMPRESSION: Cardiomegaly. Signed by Adolfo Zuniga MD 03/13/2017 02:21 P
== END ==
LOC: M RAD 13:32
PROVIDERS: ATTEND Physician Assistant
DX: I48.0 Paroxysmal atrial fibrillation (principal); I51.7 Cardiomegaly

== ENCOUNTER → 2017-03-18 | Outpatient (REF) | payer MEDICARE, MEDICAID | LOC: M LAB REF 11:11 | PROVIDERS: ATTEND Neuromusculoskeletal Medicine & OMM | DX: R31.9 Hematuria, unspecified (principal) ==

== ENCOUNTER → 2017-04-13 | Outpatient (REF) | payer MEDICARE, MEDICAID | LOC: M LAB REF 16:32 | PROVIDERS: ATTEND Surgery | DX: L89.154 Pressure ulcer of sacral region, stage 4 (principal); E11.9 Type 2 diabetes mellitus without complications ==

== ENCOUNTER → 2017-04-23 | Outpatient (CLI) | payer MEDICARE, MEDICAID ==
[2017-04-23 10:14] LABS: ANION GAP 11 MEQ/L (8-16); BLOOD UREA NITROGEN 37 MG/DL (7-18); CALCIUM LEVEL 8.6 MG/DL (8.8-10.2); CARBON DIOXIDE LEVEL 24 MEQ/L (21-32); CHLORIDE LEVEL 103 MEQ/L (98-107); CREATININE FOR GFR 0.94 MG/DL (0.55-1.02); GLOMERULAR FILTRATION RATE > 60.0 (>45); GLUCOSE, FASTING 248 MG/DL (80-110); POTASSIUM SERUM 5.1 MEQ/L (3.5-5.1); SODIUM LEVEL 138 MEQ/L (136-145)
== END ==
LOC: M LAB 08:31
PROVIDERS: ATTEND Neuromusculoskeletal Medicine & OMM
DX: E87.1 Hypo-osmolality and hyponatremia (principal)

== ENCOUNTER → 2017-04-27 | Outpatient (REF) | payer MEDICARE, MEDICAID | LOC: M LAB REF 12:20 | PROVIDERS: ATTEND Surgery | DX: L89.154 Pressure ulcer of sacral region, stage 4 (principal); E11.621 Type 2 diabetes mellitus with foot ulcer ==